=== PATIENT | female | born 1960 | race Caucasian/White ===

== ENCOUNTER 2021-10-06 21:31 | Inpatient (IN) | payer OTHER, SELFPAY ==
[2021-10-06 21:49] VITALS: BP 142/76; PULSE 82; O2SAT 98; BMI 21.4
--- NOTE | 2021-10-06 21:57 | ECG_ITS ---
Test Reason : med clearance Blood Pressure : / mmHG Vent. Rate : 078 BPM Atrial Rate : 078 BPM P-R Int : 142 ms QRS Dur : 084 ms QT Int : 402 ms P-R-T Axes : 069 080 066 degrees QTc Int : 458 ms Normal sinus rhythm Normal ECG No previous ECGs available Referred By: Lalitha Aleman Electronically Signed By:WILIAN NAM MD
[2021-10-06 22:19] LABS: Appearance Urine CLEAR; Color Urine STRAW; Glucose Urine UA >=1000 MG/DL (NEG); Leukocyte Esterase Urine NEG (NEG); Nitrite Urine NEG (NEG); PH 6.5 (5.0-8.0); Specific Gravity - Urine <= 1.005 (1.005-1.025); Urine Blood NEG (NEG); Urine Ketones 5 MG/DL (NEG); Urine Protein NEG (NEG-TRACE)
[2021-10-06 22:26] LABS: Mucus Urine TRACE /LPF; RBC Urine 0 /HPF (0); WBC Urine 0 /HPF (0-4)
--- NOTE | 2021-10-06 22:30 | ED_ITS ---
HPI - General Adult General Chief complaint: General Medical Stated complaint: hyperglycemic Time Seen by Provider: 10/06/21 21:56 Source: patient Mode of arrival: EMS History of Present Illness HPI narrative: This is a 61-year-old female, chronic user of meth, who is brought in via EMS after she was pulled over by the [employer] department and found to have meth in her vehicle. Patient reports that she has not taken her insulin in ?weeks? because she is recently moved here from [place] and does not have a primary care provider down here in currently lives in a nursing home. She reports she has had some polyuria, polydipsia, mild nausea and mild diarrhea. Patient reports she last used meth this morning. Patient states she has been vaccinated approximately 2 months ago in has received Moderna but not been boosted. Related Data Allergies Allergy/AdvReac Type Severity Reaction Status Date / Time No Known Allergies Allergy Unverified 10/06/21 21:57 Review of Systems Review of Systems: Pertinent positives and negatives as stated in HPI 10 point review of systems is otherwise negative. PMFSH Past Medical History Source: nursing notes reviewed Social History Social History Alcohol intake: current Alcohol intake frequency: holidays/special occasions only Patient Tobacco Use Status: Current everyday Tobacco user Use of substances other than those prescribed or required for medical reasons: Yes Substance Use Type: Amphetamines Advance Directives: No Physical Exam Vital Signs: Vital Signs: Last Vital Signs Temp 98.5 F 10/07/21 02:16 Pulse 83 10/07/21 02:16 Resp 20 10/07/21 02:16 BP 122/79 10/07/21 02:16 Pulse Ox 100 10/07/21 02:16 BMI result Body Mass Index 21.4 VITAL SIGNS: Reviewed. GENERAL: Well developed, well nourished, in no acute distress. HEAD: Normocephalic/atraumatic EYES: PERRLA, EOMI OROPHARYNX: no oral lesions noted, posterior pharynx clear , dry mucosa NECK: Supple, no adenopathy LUNGS: Normal breath sounds. No adventitious sounds or accessory muscle use. CARDIOVASCULAR: Regular rate and rhythm without noted murmurs ABDOMEN: Soft, non-tender, non-distended with bowel sounds. NEUROLOGIC: Alert and oriented x 4. Course Course Course Narrative: 61-year-old female with history and clinical presentation consistent with hyperglycemia, will rule out infectious etiologies opposed to poor medication compliance and also ensure patient is not in DKA. Review of all investigations demonstrates significant dehydration, acetone was positive but bicarb was noted to be within normal limits, patient was treated with a total of 5 L of IV fluids and 14 units of insulin. Patient is hemodynamically stable and will otherwise be admitted. This case was discussed with the inpatient hospitalist who accepts admission. Medical Decision Making Lab Data Result diagrams: 10/06/21 22:36 10/07/21 02:40 Labs: Lab Results 10/06/21 10/06/21 10/06/21 Range/Units 22:12 22:12 22:36 WBC 7.1 (4.8-10.8) X10*3/uL RBC 4.25 (4.20-5.50) X10*6/uL Hgb 13.3 (12.0-16.0) g/dl Hct 37.2 (37.0-47.0) % MCV 87.5 (80.0-98.0) fL MCH 31.3 (27.0-33.0) pg MCHC 35.8 H (31.0-35.0) g/dl RDW 12.0 (11.0-16.0) % Plt Count 158 L (160-400) X10*3/uL MPV 9.3 L (9.4-12.3) fL Immature Gran % (Auto) 0.4 (0.0-0.4) % Neut % (Auto) 70.1 (45-73) % Lymph % (Auto) 18.7 L (20-40) % Nolan % (Auto) 9.7 (2-11) % Eos % (Auto) 1.1 (0-4) % Baso % (Auto) 0.0 (0-2) % Lymph # (Auto) 1.3 (1.2-4.9) X10*3/uL [place] # (Auto) 0.7 (0.1-1.2) X10*3/uL Eos # (Auto) 0.1 (0.0-0.4) X10*3/uL Baso # (Auto) 0.0 (0.0-0.2) X10*3/uL Abs Immat Gran (auto) 0.03 (0.00-0.03) X10*3/uL Absolute Neuts (auto) 5.0 (2.0-8.3) x10*3/uL Absolute Nucleated RBC 0.000 (0.0-0.012) X10*3/uL Nucleated RBC % (auto) 0.0 (0.0-0.2) /100WBC Sodium (135-145) mmol/L Potassium (3.3-5.1) mmol/L Chloride (96-108) mmol/L Carbon Dioxide (22-29) mmol/L Anion Gap (12-20) BUN (9-16) mg/dL Creatinine (0.5-1.4) mg/dL Estim Creat Clear Calc Estimated GFR POC Glucose (60-115) mg/dL Random Glucose (60-115) mg/dL Lactic Acid (0.5-2.0) mmol/L Calcium (8.4-10.2) mg/dL Total Bilirubin (0.0-1.0) mg/dL AST (5-31) U/L ALT (0-31) U/L Alkaline Phosphatase (39-117) U/L Total Protein (6.5-8.0) g/dL Albumin (3.5-5.0) g/dL Lipase (8-78) U/L Urine Color STRAW Urine Appearance CLEAR Urine pH 6.5 (5.0-8.0) Ur Specific [place] <= 1.005 (1.005-1.025) Urine Protein NEG (NEG-TRACE) MG/DL Urine Glucose (UA) >=1000 H (NEG) MG/DL Urine Ketones 5 (NEG) MG/DL Urine Blood NEG (NEG) Urine Nitrite NEG (NEG) Ur Leukocyte Esterase NEG (NEG) Urine RBC 0 (0) /HPF Urine WBC 0 (0-4) /HPF Ur Squamous Epith Cells NONE /LPF Urine Bacteria NONE /LPF Urine Mucus TRACE /LPF Acetone, Qual (Negative) COVID-19 (MAXIMILIAN) Negative (Negative) COVID-19 Clin Com See Note 10/06/21 10/06/21 10/07/21 Range/Units 22:36 22:36 01:39 WBC (4.8-10.8) X10*3/uL RBC (4.20-5.50) X10*6/uL Hgb (12.0-16.0) g/dl Hct (37.0-47.0) % MCV (80.0-98.0) fL MCH (27.0-33.0) pg MCHC (31.0-35.0) g/dl RDW (11.0-16.0) % Plt Count (160-400) X10*3/uL MPV (9.4-12.3) fL Immature Gran % (Auto) (0.0-0.4) % Neut % (Auto) (45-73) % Lymph % (Auto) (20-40) % Nolan % (Auto) (2-11) % Eos % (Auto) (0-4) % Baso % (Auto) (0-2) % Lymph # (Auto) (1.2-4.9) X10*3/uL [place] # (Auto) (0.1-1.2) X10*3/uL Eos # (Auto) (0.0-0.4) X10*3/uL Baso # (Auto) (0.0-0.2) X10*3/uL Abs Immat Gran (auto) (0.00-0.03) X10*3/uL Absolute Neuts (auto) (2.0-8.3) x10*3/uL Absolute Nucleated RBC (0.0-0.012) X10*3/uL Nucleated RBC % (auto) (0.0-0.2) /100WBC Sodium 127 L (135-145) mmol/L Potassium 5.0 (3.3-5.1) mmol/L Chloride 86 L (96-108) mmol/L Carbon Dioxide 30 H (22-29) mmol/L Anion Gap 16 (12-20) BUN 19 H (9-16) mg/dL Creatinine 1.52 H (0.5-1.4) mg/dL Estim Creat Clear Calc 41.3 Estimated GFR 35 POC Glucose > 600 H* (60-115) mg/dL Random Glucose 1030 H* (60-115) mg/dL Lactic Acid 1.8 (0.5-2.0) mmol/L Calcium 9.7 (8.4-10.2) mg/dL Total Bilirubin 0.7 (0.0-1.0) mg/dL AST 45 H (5-31) U/L ALT 80 H (0-31) U/L Alkaline Phosphatase 136 H (39-117) U/L Total Protein 7.8 (6.5-8.0) g/dL Albumin 3.9 (3.5-5.0) g/dL Lipase 32 (8-78) U/L Urine Color Urine Appearance Urine pH (5.0-8.0) Ur Specific [place] (1.005-1.025) Urine Protein (NEG-TRACE) MG/DL Urine Glucose (UA) (NEG) MG/DL Urine Ketones (NEG) MG/DL Urine Blood (NEG) Urine Nitrite (NEG) Ur Leukocyte Esterase (NEG) Urine RBC (0) /HPF Urine WBC (0-4) /HPF Ur Squamous Epith Cells /LPF Urine Bacteria /LPF Urine Mucus /LPF Acetone, Qual Moderate H (Negative) COVID-19 (MAXIMILIAN) (Negative) COVID-19 Clin Com 10/07/21 Range/Units 02:40 WBC (4.8-10.8) X10*3/uL RBC (4.20-5.50) X10*6/uL Hgb (12.0-16.0) g/dl Hct (37.0-47.0) % MCV (80.0-98.0) fL MCH (27.0-33.0) pg MCHC (31.0-35.0) g/dl RDW (11.0-16.0) % Plt Count (160-400) X10*3/uL MPV (9.4-12.3) fL Immature Gran % (Auto) (0.0-0.4) % Neut % (Auto) (45-73) % Lymph % (Auto) (20-40) % Nolan % (Auto) (2-11) % Eos % (Auto) (0-4) % Baso % (Auto) (0-2) % Lymph # (Auto) (1.2-4.9) X10*3/uL [place] # (Auto) (0.1-1.2) X10*3/uL Eos # (Auto) (0.0-0.4) X10*3/uL Baso # (Auto) (0.0-0.2) X10*3/uL Abs Immat Gran (auto) (0.00-0.03) X10*3/uL Absolute Neuts (auto) (2.0-8.3) x10*3/uL Absolute Nucleated RBC (0.0-0.012) X10*3/uL Nucleated RBC % (auto) (0.0-0.2) /100WBC Sodium 129 L (135-145) mmol/L Potassium 4.4 (3.3-5.1) mmol/L Chloride 97 (96-108) mmol/L Carbon Dioxide 25 (22-29) mmol/L Anion Gap 11 L (12-20) BUN 18 H (9-16) mg/dL Creatinine 1.12 (0.5-1.4) mg/dL Estim Creat Clear Calc 56.1 Estimated GFR 50 POC Glucose (60-115) mg/dL Random Glucose 701 H* D (60-115) mg/dL Lactic Acid (0.5-2.0) mmol/L Calcium 8.2 L D (8.4-10.2) mg/dL Total Bilirubin (0.0-1.0) mg/dL AST (5-31) U/L ALT (0-31) U/L Alkaline Phosphatase (39-117) U/L Total Protein (6.5-8.0) g/dL Albumin (3.5-5.0) g/dL Lipase (8-78) U/L Urine Color Urine Appearance Urine pH (5.0-8.0) Ur Specific [place] (1.005-1.025) Urine Protein (NEG-TRACE) MG/DL Urine Glucose (UA) (NEG) MG/DL Urine Ketones (NEG) MG/DL Urine Blood (NEG) Urine Nitrite (NEG) Ur Leukocyte Esterase (NEG) Urine RBC (0) /HPF Urine WBC (0-4) /HPF Ur Squamous Epith Cells /LPF Urine Bacteria /LPF Urine Mucus /LPF Acetone, Qual (Negative) COVID-19 (MAXIMILIAN) (Negative) COVID-19 Clin Com Critical Care Time Critical Care Time Critical Care Time: Yes Total Critical Care Time: 30 Attestation: I personally attest to this time spent taking care of the patient. Discharge Plan Discharge Clinical Impression: Hyperglycemia, Dehydration Patient Disposition: Admitted As Inpatient
[2021-10-06 22:35] LABS: COVID-19 Test Negative (Negative)
[2021-10-06] MEDS: 0.9 % Sodium Chloride 1,000 ML 999 ML IV (22:38)
[2021-10-06 22:42] LABS: MANUAL DIFF FLAG NO
[2021-10-06 22:43] LABS: Eosinophils Absolute Auto 0.1 X10*3/uL (0.0-0.4); Eosinophils Percent Auto 1.1 % (0-4); Hematocrit 37.2 % (37.0-47.0); Hemoglobin 13.3 g/dl (12.0-16.0); Imm Gran Abs Auto 0.03 X10*3/uL (0.00-0.03); Imm Gran Pct Auto 0.4 % (0.0-0.4); Lymphocytes Absolute Auto 1.3 X10*3/uL (1.2-4.9); Lymphocytes Percent Auto 18.7 % (20-40); Mean Corpuscular HGB Conc 35.8 g/dl (31.0-35.0); Mean Corpuscular Hemoglobin 31.3 pg (27.0-33.0); Mean Corpuscular Volume 87.5 fL (80.0-98.0); Mean Platelet Volume 9.3 fL (9.4-12.3); Monocytes Absolute Auto 0.7 X10*3/uL (0.1-1.2); Monocytes Percent Auto 9.7 % (2-11); Neutrophils Percent Auto 70.1 % (45-73); Platelet Count 158 X10*3/uL (160-400); Red Blood Count 4.25 X10*6/uL (4.20-5.50); White Blood Count 7.1 X10*3/uL (4.8-10.8)
[2021-10-06 23:01] VITALS: BP 118/64; PULSE 80; RESP 14
[2021-10-06 23:08] LABS: Alanine Aminotransferase 80 U/L (0-31); Albumin Level 3.9 g/dL (3.5-5.0); Alkaline Phosphatase 136 U/L (39-117); Anion Gap 16 (12-20); Aspartate Amino Transferase 45 U/L (5-31); Bilirubin Total 0.7 mg/dL (0.0-1.0); Blood Urea Nitrogen 19 mg/dL (9-16); Calcium 9.7 mg/dL (8.4-10.2); Carbon Dioxide 30 mmol/L (22-29); Chloride 86 mmol/L (96-108); Creatinine Clr Calc Pharmacy 41.3; Estimated Glomerular Filt Rate 35; Lipase 32 U/L (8-78); Sodium 127 mmol/L (135-145); Total Protein 7.8 g/dL (6.5-8.0)
[2021-10-06 23:11] LABS: Acetone, serum QL Moderate (Negative)
[2021-10-06 23:18] LABS: Glucose Random 1030 mg/dL (60-115)
[2021-10-06 23:20] LABS: Lactic Acid 1.8 mmol/L (0.5-2.0)
[2021-10-06 23:48] VITALS: BP 137/82; PULSE 81; RESP 18; TEMP 36.8; O2SAT 97
[2021-10-07] MEDS: 0.9 % Sodium Chloride 3,000 ML 999 ML IV (00:16)
[2021-10-07] MEDS: Insulin Regular, Human 100 UNIT/ML 3 ML VIAL 7 UNIT IVPUSH (00:36)
[2021-10-07 01:42] LABS: Glucose, Whole Blood > 600 mg/dL (60-115)
[2021-10-07 02:16] VITALS: BP 122/79; PULSE 83; RESP 20; TEMP 36.9; O2SAT 100
[2021-10-07 03:02] LABS: Anion Gap 11 (12-20); Blood Urea Nitrogen 18 mg/dL (9-16); Calcium 8.2 mg/dL (8.4-10.2); Carbon Dioxide 25 mmol/L (22-29); Chloride 97 mmol/L (96-108); Creatinine Clr Calc Pharmacy 56.1; Estimated Glomerular Filt Rate 50; Potassium 4.4 mmol/L (3.3-5.1); Sodium 129 mmol/L (135-145)
[2021-10-07 03:04] LABS: Glucose Random 701 mg/dL (60-115)
[2021-10-07] MEDS: Insulin Lispro 100 UNIT/ML 3 ML VIAL 7 UNIT SUBCUT (03:29)
[2021-10-07] MEDS: 0.9 % Sodium Chloride 2,000 ML 999 ML IV (03:31)
[2021-10-07 05:07] VITALS: BP 142/68; PULSE 74; RESP 12; O2SAT 97
--- NOTE | 2021-10-07 05:22 | P.HPHOSP_ITS ---
History of Present Illness Date of Service: 10/07/21 Chief Complaint: Increased thirst 61-year-old female with a past medical history of depression, bipolar, substance abuse, diabetes-noncompliant with insulin; presented to the hospital today with a chief complaint of increased thirst; generalized weakness; Patient is a poor historian; reports that she is homeless Patient denies any fever chills cough. Denies any chest pain or palpitations. Reports overall she is not feeling well and generally weak. Denies any falls or trauma. Patient reports he has increased thirst and increased urination. Patient also mentions that she has not been taking her insulin and metformin for about 3-4 weeks. Denies any numbness tingling or focal weakness. Review of all other systems is negative except mentioned above ER course: For ER team patient on exam noted to be dehydrated. Lab showed elevated creatin ine to 1.5, random glucose of 1030, sodium of 127. Patient was given 3 L of IV fluids. Regular insulin IV push. Admitted to the hospital for further management. Patient's anion gap was 16. Not concernedfor DKA. [facility] Pertinent family history: Reports that Parents Social History Household Members: None Housing: Other Do you presently have visiting nurse or other home services: No Alcohol intake: current Alcohol intake frequency: holidays/special occasions only Patient Tobacco Use Status: Current everyday Tobacco user Tobacco use type: Smokeless Tobacco Substance Use Type: Methamphetamine Narrative: Mentions she is homeless Meds Allergies Allergy/AdvReac Type Severity Reaction Status Date / Time No Known Allergies Allergy Verified 10/08/21 13:54 Active Medications: Current Medications Sodium Chloride (Ns) 2,000 mls @ 999 mls/hr IV .Q2H1M [facility] Stop: 10/07/21 05:30 Last Admin: 10/07/21 03:31 Dose: 999 mls/hr Documented by: Melatonin (Melatonin 3 Mg Tablet) 6 mg PO BEDTIME PRN PRN Reason: Insomnia Senna (Sennosides 8.6 Mg Tablet) 17.2 mg PO BEDTIME PRN PRN Reason: Constipation Sodium Chloride (0.9 % Sodium Chloride Flush 3 Ml Syringe) 3 ml IVFLUSH QSHIFT [facility] Home Medications Medication Instructions Recorded Confirmed Last Taken Type aripiprazole 30 mg tablet 30 mg PO BID 10/07/21 10/07/21 Unknown History Physical Exam Vital Signs and Narrative: Vital Signs: Last Vital Signs Temp 98.5 F 10/07/21 02:16 Pulse 74 10/07/21 05:07 Resp 12 10/07/21 05:07 BP 142/68 H 10/07/21 05:07 Pulse Ox 97 10/07/21 05:07 BMI result Body Mass Index 21.4 Gen: Appears be in no acute distress HEENT: NCAT, Moist mucosa. Pulmonary: Vesicular breath sounds, fair air entry CVS: Normal S1-S2 Abdomen: BS+, Soft, Nontender Extremities: Warm well perfused Neuro: Alert and awake. Results Labs CBC and Chem 7: 10/08/21 05:06 10/09/21 05:45 Labs: Laboratory Results - last 24 hr 10/06/21 10/06/21 10/06/21 22:12 22:12 22:36 MCV 87.5 MCH 31.3 MCHC 35.8 H RDW 12.0 Plt Count 158 L MPV 9.3 L Immature Gran % (Auto) 0.4 Neut % (Auto) 70.1 Lymph % (Auto) 18.7 L [place] % (Auto) 9.7 Eos % (Auto) 1.1 Baso % (Auto) 0.0 Lymph # (Auto) 1.3 [place] # (Auto) 0.7 Eos # (Auto) 0.1 Baso # (Auto) 0.0 Abs Immat Gran (auto) 0.03 Absolute Neuts (auto) 5.0 Absolute Nucleated RBC 0.000 Nucleated RBC % (auto) 0.0 Anion Gap Estim Creat Clear Calc Estimated GFR POC Glucose Random Glucose Lactic Acid Calcium Total Bilirubin AST ALT Alkaline Phosphatase Total Protein Albumin Lipase Urine Color STRAW Urine Appearance CLEAR Urine pH 6.5 Ur Specific [place] <= 1.005 Urine Protein NEG Urine Glucose (UA) >=1000 H Urine Ketones 5 Urine Blood NEG Urine Nitrite NEG Ur Leukocyte Esterase NEG Urine RBC 0 Urine WBC 0 Ur Squamous Epith Cells NONE Urine Bacteria NONE Urine Mucus TRACE Acetone, Qual COVID-19 (MAXIMILIAN) Negative COVID-19 Clin Com See Note 10/06/21 10/06/21 10/07/21 22:36 22:36 01:39 MCV MCH MCHC RDW Plt Count MPV Immature Gran % (Auto) Neut % (Auto) Lymph % (Auto) [place] % (Auto) Eos % (Auto) Baso % (Auto) Lymph # (Auto) [place] # (Auto) Eos # (Auto) Baso # (Auto) Abs Immat Gran (auto) Absolute Neuts (auto) Absolute Nucleated RBC Nucleated RBC % (auto) Anion Gap 16 Estim Creat Clear Calc 41.3 Estimated GFR 35 POC Glucose > 600 H* Random Glucose 1030 H* Lactic Acid 1.8 Calcium 9.7 Total Bilirubin 0.7 AST 45 H ALT 80 H Alkaline Phosphatase 136 H Total Protein 7.8 Albumin 3.9 Lipase 32 Urine Color Urine Appearance Urine pH Ur Specific [place] Urine Protein Urine Glucose (UA) Urine Ketones Urine Blood Urine Nitrite Ur Leukocyte Esterase Urine RBC Urine WBC Ur Squamous Epith Cells Urine Bacteria Urine Mucus Acetone, Qual Moderate H COVID-19 (MAXIMILIAN) COVID-19 [employer] Com 10/07/21 02:40 MCV MCH MCHC RDW Plt Count MPV Immature Gran % (Auto) Neut % (Auto) Lymph % (Auto) [place] % (Auto) Eos % (Auto) Baso % (Auto) Lymph # (Auto) [place] # (Auto) Eos # (Auto) Baso # (Auto) Abs Immat Gran (auto) Absolute Neuts (auto) Absolute Nucleated RBC Nucleated RBC % (auto) Anion Gap 11 L Estim Creat Clear Calc 56.1 Estimated GFR 50 POC Glucose Random Glucose 701 H* D Lactic Acid Calcium 8.2 L D Total Bilirubin AST ALT Alkaline Phosphatase Total Protein Albumin Lipase Urine Color Urine Appearance Urine pH Ur Specific [place] Urine Protein Urine Glucose (UA) Urine Ketones Urine Blood Urine Nitrite Ur Leukocyte Esterase Urine RBC Urine WBC Ur Squamous Epith Cells Urine Bacteria Urine Mucus Acetone, Qual COVID-19 (MAXIMILIAN) COVID-19 Clin [facility] [facility] Assessment and Plan (1) Hyperglycemia: Status: Resolved 61-year-old female with a past medical history of depression, bipolar, substance abuse, diabetes-noncompliant with insulin; presented to the hospital today with a chief complaint of increased thirst; generalized weakness. Noted to have following Hyperglycemia: Patient's initial random glucose was 1030. Patient was noncompliant with her home medications metformin and Lantus. Received regular insulin IV push and IV fluids. Fingerstick glucose improving. Closely monitor fingerstick glucose levels for now. Continue IV fluids. Patient not in DKA. Serum osmolality pending. Diabetes: Will start the patient on Lantus 20 units and insulin sliding scale. Diabetic diet. Pseudo hyponatremia: In the setting of hyperglycemia. Improving. BAKARI: Secondary to dehydration. Resolved with IV fluids. 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 History of bipolar disorder: Patient was on aripiprazole. Has been noncom pliant. History of amphetamine abuse: Consult avoid illicit drug use. DVT prophylaxis: SCD boots Code status: Full code Quality Stroke Does the patient have a stroke diagnosis?: No VTE Prior VTE?: No VTE Risk Level:: Medical - low VTE Device Contraindication: N/A - Device Ordered VTE Drug Contraindication: Treatment Not Indicated
[2021-10-07 05:31] VITALS: BP 102/55; PULSE 85; RESP 16; O2SAT 97
[2021-10-07] MEDS: Insulin Glargine,Hum.rec.anlog 100 UNIT/ML 10 ML VIAL 20 UNIT SUBCUT ×2 (05:40→08:39)
[2021-10-07] MEDS: Insulin Lispro 100 UNIT/ML 3 ML VIAL SUBCUT ×5 (05:42→21:11)
[2021-10-07 05:44] LABS: Osmolality, Serum 314 mosm/kg (281-305)
[2021-10-07 05:46] LABS: Glucose, Whole Blood 568 mg/dL (60-115)
[2021-10-07] MEDS: 0.9 % Sodium Chloride 1,000 ML 125 ML IVCONT ×3 (06:23→22:42)
[2021-10-07 07:26] LABS: Glucose, Whole Blood 386 mg/dL (60-115)
[2021-10-07 07:37] LABS: MANUAL DIFF FLAG NO
[2021-10-07 07:41] LABS: Basophils Percent Auto 0.2 % (0-2); Eosinophils Absolute Auto 0.1 X10*3/uL (0.0-0.4); Eosinophils Percent Auto 2.2 % (0-4); Hemoglobin 10.9 g/dl (12.0-16.0); Imm Gran Abs Auto 0.02 X10*3/uL (0.00-0.03); Imm Gran Pct Auto 0.3 % (0.0-0.4); Lymphocytes Absolute Auto 1.7 X10*3/uL (1.2-4.9); Lymphocytes Percent Auto 26.9 % (20-40); Mean Corpuscular HGB Conc 36.3 g/dl (31.0-35.0); Mean Corpuscular Hemoglobin 30.9 pg (27.0-33.0); Mean Platelet Volume 9.2 fL (9.4-12.3); Monocytes Absolute Auto 0.7 X10*3/uL (0.1-1.2); Monocytes Percent Auto 10.4 % (2-11); Neutrophils Absolute Auto 3.9 x10*3/uL (2.0-8.3); Platelet Count 126 X10*3/uL (160-400); Red Blood Count 3.53 X10*6/uL (4.20-5.50); Red Cell Distribution Width 11.8 % (11.0-16.0); White Blood Count 6.4 X10*3/uL (4.8-10.8)
[2021-10-07 08:10] LABS: Anion Gap 10 (12-20); Blood Urea Nitrogen 14 mg/dL (9-16); Calcium 7.7 mg/dL (8.4-10.2); Carbon Dioxide 20 mmol/L (22-29); Chloride 100 mmol/L (96-108); Creatinine Clr Calc Pharmacy 77.6; Estimated Glomerular Filt Rate > 60; Glucose Random 478 mg/dL (60-115); Potassium 3.8 mmol/L (3.3-5.1); Sodium 126 mmol/L (135-145)
[2021-10-07 08:15] VITALS: BP 93/47; PULSE 83; RESP 17; TEMP 36.7; O2SAT 97
--- NOTE | 2021-10-07 08:19 | P.EN_ITS ---
Event Note Date of Service: 10/07/21 Event Note: 61-year-old female with a past medical history of depression, bipo lar, substance abuse, diabetes-noncompliant with insulin; presented to the hospital today with a chief complaint of increased thirst; generalized weakness. Noted to have following Hyperglycemia/HHS. Initial random glucose was 1030.? Patient was noncompliant with her home medications metformin and Lantus due to homelessness Received insulin in the ED continue IV fluids and insulin sliding scale and QID Lantus 20 units daily Pseudohyponatremia secondary to hyperglycemia follow BAKARI Secondary to dehydration.? Resolved with IV fluids. 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 History of bipolar disorder Patient was on aripiprazole.? Has been noncompliant. History of amphetamine abuse Consult addiction medicine avoid illicit drug use. DVT prophylaxis: SCD boots Code status: Full code Attending Dr. Parker
--- NOTE | 2021-10-07 09:40 | PHA.MEDREC ---
Pharmacy Consult ? Medication Reconciliation Pharmacy has completed the medication reconciliation. Spoke with patient in ED and states she is on lantus and abilify. Contacted patients pharmacy in [place], [place].Pt filled lantus 32 units BID on 08/21/21, Abilify 30 mg BID on 08/21/21 and metformin 1000 mg bid in february 2021. Pt states she has not taken Lantus in 5 months.
[2021-10-07 13:53] LABS: Glucose, Whole Blood 381 mg/dL (60-115)
--- NOTE | 2021-10-07 15:27 | MHC.RECOVSUP ---
Recovery Support note: Patient is a 61 year old Chinese speaking female who presented to [facility] due to high blood sugar and was medically admitted. This magazine writer met with patient to discuss amphetamine use and recovery supports. Patient reports that she has been using methamphetamine daily for the past five years. Patient states that she relocated to [place] recently. Patient reports maybe when asked if she is interested in reducing her consumption or stopping entirely. Patient reports she is anxious at this time and unable to discuss this further. This magazine writer will follow up with patient later on in her stay to discuss recovery supports for amphetamine use.
[2021-10-07 15:29] VITALS: BP 121/77; PULSE 80; RESP 18; TEMP 37.1; O2SAT 98
[2021-10-07 15:33] LABS: Glucose, Whole Blood 297 mg/dL (60-115)
--- NOTE | 2021-10-07 16:30 | MHC.CM.PN ---
Met with patient. She reports she lives at [facility]eless snf in [place] and will return there on dc. Her car was towed, she has document with tow information, and she requested assistance how to get it back. Call to [place] [employer]. Car was towed due to not being registered. Patient will need to get car registered or have it towed somewhere else. Informed patient. She will follow up after dc. She will need help with transportation back to snf on dc. She does not have a PCP.
[2021-10-07 16:48] LABS: Glucose, Whole Blood 223 mg/dL (60-115)
--- NOTE | 2021-10-07 19:41 | PC.NURSE ---
Assumed care of pt at 1900. Pt sleeping and in NAD, equal and non-labored resps noted
[2021-10-07 20:32] LABS: Glucose, Whole Blood 125 mg/dL (60-115)
[2021-10-07] MEDS: Melatonin 3 MG TABLET 6 MG PO (21:12)
[2021-10-07 23:26] VITALS: RESP 16
--- NOTE | 2021-10-08 02:14 | PC.NURSE ---
Report called to inpt RN, pt to floor via wc. Sent in stable condition w/ all belongings
[2021-10-08 02:24] VITALS: BP 110/53; PULSE 65; RESP 16; TEMP 36.6; O2SAT 96
[2021-10-08 05:47] LABS: Hematocrit 32.4 % (37.0-47.0); Hemoglobin 11.6 g/dl (12.0-16.0); Mean Corpuscular HGB Conc 35.8 g/dl (31.0-35.0); Mean Corpuscular Hemoglobin 31.4 pg (27.0-33.0); Mean Corpuscular Volume 87.8 fL (80.0-98.0); Mean Platelet Volume 9.1 fL (9.4-12.3); Platelet Count 141 X10*3/uL (160-400); Red Blood Count 3.69 X10*6/uL (4.20-5.50); Red Cell Distribution Width 12.2 % (11.0-16.0); White Blood Count 7.1 X10*3/uL (4.8-10.8)
[2021-10-08 06:19] LABS: Anion Gap 10 (12-20); Blood Urea Nitrogen 9 mg/dL (9-16); Carbon Dioxide 21 mmol/L (22-29); Chloride 109 mmol/L (96-108); Creatinine Clr Calc Pharmacy 82.7; Estimated Glomerular Filt Rate > 60; Glucose Random 268 mg/dL (60-115); Potassium 3.2 mmol/L (3.3-5.1); Sodium 137 mmol/L (135-145)
[2021-10-08 07:53] LABS: Glucose, Whole Blood 275 mg/dL (60-115)
[2021-10-08 08:00] VITALS: BP 134/71; PULSE 83; RESP 18; TEMP 36; O2SAT 96
[2021-10-08] MEDS: Insulin Lispro 100 UNIT/ML 3 ML VIAL SUBCUT ×8 (09:03→20:51)
[2021-10-08] MEDS: Potassium Chloride ER 20 MEQ TAB.ER.PRT 40 MEQ PO (09:04)
--- NOTE | 2021-10-08 10:17 | P.PNIM_ITS ---
Subjective Subjective Date of Service: 10/08/21 Review of Systems Follow up hyperglycemia Feeling better good appetite no pain Physical Exam Verdana 4l Vital Signs: Verdana 4d Verdana 4d Vital Signs: Verdana 4d Verdana 4Bd Last Vital Signs Verdana 4d Lawanda Herrera 4d Lawanda Herrera 4d Temp 96.8 F 10/08/21 08:00 Lawanda Herrera 4d Pulse 83 10/08/21 08:00 Lawanda Brooke 4d Resp 18 10/08/21 08:00 BP 134/71 10/08/21 08:00 Pulse Ox 96 10/08/21 08:00 BMI result Body Mass Index 21.4 Appearing in no acute distress lung sounds are clear to auscultation heart regular rate rhythm, clear S1, S2 positive bowel sounds, abdomen is soft, nontender neuro patient is alert x3, no focal deficits Objective Data Active Medications Dextrose (Dextrose 50 % 25 Gm/50 Ml Vial) 25 gm IVPUSH Q15M PRN; Protocol PRN Reason: per Hypoglycemia Standing Ord. Diphenhydramine HCl (Diphenhydramine Hcl 25 Mg Tablet) 25 mg PO Q6H PRN PRN Reason: withdrawl symptoms Glucose (Glucose Gel 15 Gm Gel..Gram.) 15 gm PO Q15M PRN; Protocol PRN Reason: per Hypoglycemia Standing Ord. Insulin Human Lispro (Insulin Lispro 100 Unit/Ml 3 Ml Vial) 0 unit SUBCUT Q [facility]; Protocol Last Admin: 10/08/21 09:03 Dose: 8 unit Documented by: JULIO Insulin Human Lispro (Insulin Lispro 100 Unit/Ml 3 Ml Vial) [facility] Last Admin: 10/08/21 09:03 Dose: 5 unit Documented by: JULIO Melatonin (Melatonin 3 Mg Tablet) 6 mg PO BEDTIME PRN PRN Reason: Insomnia Last Admin: 10/07/21 21:12 Dose: 6 mg Documented by: LISSY Senna (Sennosides 8.6 Mg Tablet) 17.2 mg PO BEDTIME PRN PRN Reason: Constipation Sodium Chloride (0.9 % Sodium Chloride Flush 3 Ml Syringe) 3 ml IVFLUSH [facility] Last Admin: 10/08/21 07:22 Dose: Not Given Documented by: JULIO Non-Admin Reason: IV Running Labs CBC & Chem 7: 01/09/22 05:06 10/08/21 05:06 Labs: Laboratory Results - last 24 hr 10/07/21 10/07/21 10/07/21 13:49 15:29 16:41 MCV MCH MCHC RDW Plt Count MPV Absolute Nucleated RBC Nucleated RBC % (auto) Anion Gap Estim Creat Clear Calc Estimated GFR POC Glucose 381 H* 297 H 223 H Random Glucose Calcium 10/07/21 10/08/21 10/08/21 20:19 05:06 05:06 MCV 87.8 MCH 31.4 MCHC 35.8 H RDW 12.2 Plt Count 141 L MPV 9.1 L Absolute Nucleated RBC 0.000 Nucleated RBC % (auto) 0.0 Anion Gap 10 L Estim Creat Clear Calc 82.7 Estimated GFR > 60 POC Glucose 125 H Random Glucose 268 H Calcium 8.0 L 10/08/21 07:25 MCV MCH MCHC RDW Plt Count MPV Absolute Nucleated RBC Nucleated RBC % (auto) Anion Gap Estim Creat Clear Calc Estimated GFR POC Glucose 275 H Random Glucose Calcium Microbiology Microbiology Results: Microbiology 10/07/21 00:11 Blood Culture - Preliminary Blood - Venous No growth after 24 hours. 10/07/21 00:11 Blood Culture - Preliminary Blood - Venous No growth after 24 hours. Assessment and Plan (1) Hyperglycemia: Status: Acute Assessment and Plan: 61-year-old female with a past medical history of depression, bipolar, substance abuse, diabetes-noncompliant with insulin; presented to the hospital today with a chief complaint of increased thirst; generalized weakness. Noted to have following Hyperglycemia/HHS. Initial random glucose was 1030.?Resolved Patient was noncompliant with her home medications metformin and Lantus due to homelessness Received insulin in the EDIV fluids stopped continue insulin sliding scale and QID Lantus 20 units daily Hypokalemia Repleted follow BMP Pseudohyponatremia secondary to hyperglycemia follow BAKARI Secondary to dehydration.? Resolved with IV fluids. 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 History of bipolar disorder Patient was on aripiprazole.? Has been noncompliant. History of amphetamine abuse Consult addiction medicine avoid illicit drug use. DISPO Home tommorrow if medically stable DVT prophylaxis: SCD boots Code status: Full code Attending Dr. Parker Quality Stroke Does the patient have a stroke diagnosis?: No VTE Prior VTE?: No VTE Risk Level:: Medical - low VTE Device Contraindication: N/A - Device Ordered VTE Drug Contraindication: Treatment Not Indicated
[2021-10-08 11:42] LABS: Glucose, Whole Blood 266 mg/dL (60-115)
[2021-10-08 12:00] VITALS: BP 119/68; PULSE 100; RESP 18; TEMP 36.1; O2SAT 97
--- NOTE | 2021-10-08 15:03 | PM.EVENT ---
Event Note Date of Service: 10/08/21 Event Note: Addiction consult Please see Recovery Team note(s)
[2021-10-08] MEDS: Nicotine Polacrilex 2 MG GUM BUCCAL (15:28)
[2021-10-08] MEDS: diphenhydrAMINE HCL 25 MG TABLET PO (15:28)
[2021-10-08] MEDS: LORazepam 0.5 MG TABLET 0.25 MG PO ×2 (15:41→20:50)
[2021-10-08 16:00] VITALS: BP 119/74; PULSE 100; RESP 20; TEMP 35.6; O2SAT 98
[2021-10-08 16:17] LABS: Glucose, Whole Blood 217 mg/dL (60-115)
--- NOTE | 2021-10-08 16:18 | MHC.RECOVSUP ---
Recovery Support note: This personal lines underwriter followed up with patient to discuss her methamphetamine use and recovery supports. Patient reports she plans to stop using because she can't get anymore due to her supplier being in [place]. Explained to patient that there is a recovery community of people who get together to support each through meetings. This personal lines underwriter offered to provide patient with information on outpatient resources that can be utilized without insurance. Patient declined, stating that her biggest concern is getting her car out of impound. Patient states I need help, I don't have the money. Patient reports she will be getting an unemployment check at the end of the month. This personal lines underwriter attempted to problem solve the situation with patient when patient became frustrated stating, I need help, your not helping. Recovery Support Team is available to meet with patient to discuss methamphetamine use and supports however at this time patient is not interested in these resources.
[2021-10-08] MEDS: 0.9 % Sodium Chloride Flush 3 ML SYRINGE IVFLUSH (17:10)
[2021-10-08 20:00] VITALS: BP 115/64; PULSE 79; RESP 17; TEMP 36.7; O2SAT 96
[2021-10-08 20:31] LABS: Glucose, Whole Blood 278 mg/dL (60-115)
[2021-10-09] VITALS: BP 104/59; PULSE 69; RESP 18; TEMP 37; O2SAT 96
[2021-10-09 03:34] VITALS: BP 116/61; PULSE 71; RESP 17; TEMP 36.4; O2SAT 97
[2021-10-09 06:39] LABS: Anion Gap 8 (12-20); Blood Urea Nitrogen 11 mg/dL (9-16); Calcium 8.7 mg/dL (8.4-10.2); Carbon Dioxide 24 mmol/L (22-29); Chloride 108 mmol/L (96-108); Creatinine Clr Calc Pharmacy 89.8; Estimated Glomerular Filt Rate > 60; Glucose Random 132 mg/dL (60-115); Potassium 3.1 mmol/L (3.3-5.1); Sodium 137 mmol/L (135-145)
[2021-10-09 07:37] LABS: Glucose, Whole Blood 167 mg/dL (60-115)
--- NOTE | 2021-10-09 07:49 | PM.DS ---
DS: Providers Provider Date of Service: 10/09/21 Date of admission: 10/07/21 04:51 Primary care physician: None Physician Consults: 10/07/21 12:44 Addiction Medicine Routine Consulting Provider: Annelise Rivera Reason for consultation: amphetamine abuse Has provider been notified: No Attending physician on discharge: Mike Norton Discharging clinician: Angie Baires DS: Diagnosis Discharge Diagnosis (1) Hyperglycemia: Status: Acute DS: Summary Hospital Course Hospital Course: HP as per admitting provider 61-year-old female with a past medical history of depression, bipolar, substance abuse, diabetes-noncompliant with insulin; presented to the hospital today with a chief complaint of increased thirst; generalized weakness;Patient is a poor historian; reports that she is homeless Patient denies any fever chills cough.?Denies any chest pain or palpitations.?Reports overall she is not feeling well and generally weak.? Denies any falls or trauma.?Patient reports he has increased thirst and increased urination.?Patient also mentions that she has not been taking her insulin and metformin for about 3-4 weeks.?Denies any numbness tingling or focal weakness.?Review of all other systems is negative except mentioned above ER course: For ER team patient on exam noted to be dehydrated.? Lab showed elevated creatinine to 1.5, random glucose of 1030, sodium of 127.? Patient was given 3 L of IV fluids.? Regular insulin IV push.? Admitted to the hospital for further management.?Patient's anion gap was 16.? Not concernedfor DKA . Hyperglycemia/HHS. Initial random glucose was 1030.?Resolved Patient was noncompliant with her home medications metformin and Lantus due to homelessness Received insulin in the ED, IV fluids stopped continue insulin sliding scale and QID Lantus 20 units daily Medications sent to [facility] Hypokalemia Repleted Pseudohyponatremia secondary to hyperglycemia Resolved BAKARI Secondary to dehydration.? Resolved with IV fluids. Homelessness. Case management met with patient. She came from a group home in [place] the plan is for her to return there. Seen by recovery team for methamphetamine use, provided information regarding outpatient resources however patient declined stating that her car has been impounded Time Spent with Patient Time attestation: Total time spent providing and/or coordinating discharge services: Discharge coordination time: Greater than 30 minutes Quality: Stroke Does the patient have a stroke diagnosis?: No Physical Exam Vital Signs: Vital Signs: Last Vital Signs Temp 97.5 F 10/09/21 03:34 Pulse 71 10/09/21 03:34 Resp 17 10/09/21 03:34 BP 116/61 10/09/21 03:34 Pulse Ox 97 10/09/21 03:34 BMI result Body Mass Index 21.4 Appearing in no acute distress head is normocephalic atraumatic eyes pupils are PERRLA sclera is anicteric mouth throat mucous membranes are intact and moist neck is supple no lymphadenopathy, no JVD noted lung sounds are clear to auscultation heart regular rate rhythm, clear S1, S2 positive bowel sounds, abdomen is soft, nontender neuro patient is alert x3, no focal deficits DS: Data Data Completed and Pending Labs on day of discharge: Laboratory Results - last 24 hr 10/08/21 10/08/21 10/08/21 07:25 11:24 16:08 Sodium Potassium Chloride Carbon Dioxide Anion Gap BUN Creatinine Estim Creat Clear Calc Estimated GFR POC Glucose 275 H 266 H 217 H Random Glucose Calcium 10/08/21 10/09/21 10/09/21 20:09 05:45 07:32 Sodium 137 Potassium 3.1 L Chloride 108 Carbon Dioxide 24 Anion Gap 8 L BUN 11 Creatinine 0.70 Estim Creat Clear Calc 89.8 Estimated GFR > 60 POC Glucose 278 H 167 H Random Glucose 132 H Calcium 8.7 D Preliminary micro results at discharge 10/07/21 00:11 Blood Culture - Preliminary Blood - Venous No growth after 48 hours. 10/07/21 00:11 Blood Culture - Preliminary Blood - Venous No growth after 48 hours. Discharge Plan Discharge Anticipated Discharge Date/Time: 10/09/21 07:47 Patient Disposition: Home, Self-Care Discharge Diagnosis: hyperglycemia Referrals: Physician,None [Primary Care Provider] - 1 Week Discharge Medications: New insulin lispro [Humalog KwikPen Insulin] 100 unit/mL insulin pen See Protocol sliding scale dose subcut USEASDIRECTD Qty: 3 RF: 0 (DME) pen needle, diabetic [Pen Needle] 31 gauge x 1/4 needle See Rx Instructions .Route Qty: 100 RF: 0 alcohol swabs [Alcohol Prep Pads] Pads, Medicated 1 pad topical TID Qty: 200 RF: 0 (DME) insulin syringe-needle U-100 [Insulin Syringe] 0.5 mL 29 gauge x 1/2 syringe See Rx Instructions .Route Qty: 100 RF: 0 Continued aripiprazole 30 mg Tablet 30 mg PO BID RF: 0 Lantus U-100 Insulin 100 unit/mL Solution 38 unit SUBCUT BID Qty: 10 RF: 0 Discharge Orders: Discharge Order (Routine); Ordered 10/09/21 Ordered By: Angie Baires Diet: advance to usual diet Activity on Discharge: As tolerated Stand Alone Forms: Patient Portal Discharge page Care Plan Goals: Take your diabetic medications as prescribed Your diabetic medication has been sent to [facility] Health Concerns: Diabetes with Hyperglycemia Plan of Treatment: Please take your medications as prescribed. Continue to check your blood sugars at least 3 times daily and take your insulin to avoid spikes in your blood sugar. Follow a low sugar diet. Assessment: See discharge summary Discharge Date/Time: 10/09/21 12:36
[2021-10-09 07:53] VITALS: BP 113/56; PULSE 77; RESP 18; TEMP 36.6; O2SAT 96
[2021-10-09] MEDS: Potassium Chloride ER 20 MEQ TAB.ER.PRT 60 MEQ PO (08:34)
[2021-10-09] MEDS: Insulin Lispro 100 UNIT/ML 3 ML VIAL SUBCUT ×4 (08:35→11:38)
[2021-10-09] MEDS: 0.9 % Sodium Chloride Flush 3 ML SYRINGE IVFLUSH (08:36)
--- NOTE | 2021-10-09 09:10 | MHC.CM.PN ---
Addendum entered by Shani Walter RN 10/09/21 09:44: PT REPORTS SHE HAS BEEN STAYING AT THE [facility], CM CONTACTED SENIOR CARE AT 9:40AM [phone] TO VERIFY SHE CAN RETURN, CM AWAITING CALL BACK FROM [facility] [employer] [facility]. Addendum entered by Shani Walter RN 10/09/21 09:20: PT HAS BEEN SEEN BY RECOVERY SUPPORT TEAM AND HAS DECLINED SERVICES. Original Note: EMR REVIEWED, PT CAME FROM [facility]IOR [facility] IN [place] AND PLAN WAS TO RETURN, PT ALSO LISTED NSELF-PAY AND CM MET W/PT TO VERIFY AND PT REPORTED SHE HAS [place] MEDICAID AND MEDICARE, CM CONTACTED REGISTRATION AND THEY WILL LOOKUP INSURANCE, PT DEMANDING SHE NEEDS FINANCIAL ASSISTANCE GETTING HER CAR OUT OF [employer] IT WAS TOWED WELL GETTING IT REGISTERED THAT IS WHY IT WAS TOWED, PT AWARE CM AND [facility] CANNOT ASSIST HER W/PAYING FOR HER TO REGISTER HER CAR OR PAY FOR [employer] FEES, PT C/O SHE NEEDS NEW CLOTHES HERS ARE SOILED, CM DIRECTOR AWARE AND WILL BRING CLOTHES DOWN TO UNIT, CM TO VERIFY WHICH [facility] IN [place] PT WAS STAYING. PLAN IS FOR DISCHARGE TODAY.
[2021-10-09] MEDS: Nicotine Polacrilex 2 MG GUM BUCCAL (10:04)
--- NOTE | 2021-10-09 10:17 | MHC.CM.PN ---
CM RECEIVED CALL BACK FROM [facility] [place] THAT PT IS WELCOME TO RETURN AND MAY SHOW UP ANY TIME TODAY, HOSPITALIST AWARE AND PT WILL BE PROVIDED A CAB VOUCHER INCLUDING A STOP AT PHARMACY TO [facility] [employer] HER MEDS.
[2021-10-09 11:21] LABS: Glucose, Whole Blood 321 mg/dL (60-115)
[2021-10-09 11:50] VITALS: BP 121/67; PULSE 98; RESP 18; TEMP 36.5; O2SAT 98
--- NOTE | 2021-10-09 12:14 | MHC.CM.PN ---
PT DISCHARGING TO [facility] TO [facility] AND THEN [facility] [place], PT GIVEN TAXI VOUCHER FOR [facility] FOR TRANSPORT.
--- NOTE | 2021-10-09 15:37 | MHC.CM.PN ---
CM NOTIFIED PT IS STILL WAITING FOR [facility] IN [facility], [facility] CONFIRMED W/CUSTODIAL AT 3:35PM [phone] THEY CAN ASSIST HER TO GET HER MEDS TOMORROW, [facility] HAS GIVEN PT A NEW TAXI VOUCHER WITH NO STOP AT PHARMACY AND [facility] HER ONLY STOP PHARMACY WILL BE CLOSING SOON.
== END 2021-10-09 12:36 | disposition home or self-care (01) | DRG 638 ==
LOC: HO.ED 10-07 03:25 → HO.EDOVER 10-07 04:55 → HO.S3 10-08 00:28
PROVIDERS: Admitting Provider Hospitalist; Emergency Provider Student in an Organized Health Care Education/Training Program; Visit Provider Nurse Practitioner Acute Care
DX: E11.00 Type 2 diabetes mellitus with hyperosmolarity without nonketotic hyperglycemic-hyperosmolar coma (NKHHC) (principal); N17.9 Acute kidney failure, unspecified; F31.9 Bipolar disorder, unspecified; F15.10 Other stimulant abuse, uncomplicated; Z20.822 Contact with and (suspected) exposure to COVID-19; F17.220 Nicotine dependence, chewing tobacco, uncomplicated; E87.6 Hypokalemia; E86.0 Dehydration; Z71.6 Tobacco abuse counseling; Z59.01 Sheltered homelessness; Z91.14 Patient's other noncompliance with medication regimen; Z79.4 Long term (current) use of insulin
CPT/HCPCS: 36415; 80048; 80053; 81001; 82009; 82947; 83605; 83690; 83930; 85025; 85027; 87040; 87635; 93005; 99285; Q0163

== ENCOUNTER 2022-03-12 17:32 | Emergency (ER) | payer OTHER, SELFPAY ==
--- NOTE | 2022-03-12 17:43 | ED_ITS ---
HPI - Altered Mental Status General Chief Complaint: Overdose Stated Complaint: FOUND UNRESPONSIVE BY BD,87%RA,NO NARCAN GIVEN Time Seen by Provider: 03/12/22 17:43 Source: patient and EMS Mode of arrival: EMS Limitations: no limitations History of Present Illness HPI narrative: patient with History of diabetes, depression, bipolar disorder, heroin abuse was found unresponsive by the EMS saturating 87 at room air responded to Narcan 4 mg given intranasally. POC was >400 no signs of injury patient refusing to stay in the hospital Related Data Home Medications Medication Instructions Recorded Confirmed aripiprazole 30 mg tablet 30 mg PO BID 10/07/21 10/07/21 Previous Rx's Medication Instructions Recorded alcohol swabs (Alcohol Prep Pads) 1 pad topical TID #200 ea 10/09/21 insulin glargine 100 unit/mL 38 unit (0.38 mL) subcut BID #10 mL 10/09/21 subcutaneous solution (Lantus U-100 Insulin) insulin lispro 100 unit/mL See Protocol subcut USEASDIRECTD 10/09/21 subcutaneous pen (Humalog KwikPen #3 mL (U-100) Insulin) insulin syringe-needle U-100 0.5 #100 ea 10/09/21 mL 29 gauge x 1/2 (Insulin Syringe) pen needle, diabetic 31 gauge x #100 ea 10/09/21 1/4 (Pen Needle) Allergies Allergy/AdvReac Type Severity Reaction Status Date / Time No Known Allergies Allergy Verified 10/08/21 13:54 Review of Systems Review of Systems: Yes all other systems are reviewed and are negative [facility] Social History Social History Household Members: None Housing: Other Do you presently have visiting nurse or other home services: No Alcohol intake: current Alcohol intake frequency: holidays/special occasions only Patient Tobacco Use Status: Current everyday Tobacco user Tobacco use type: Smokeless Tobacco Substance Use Type: Methamphetamine Advance Directives: No Advance Directives Information Provided: No Physical Exam ED Vital Signs: Vital Signs - 24 hr 03/12/22 17:48 Temperature 98.3 F Pulse Rate 89 Respiratory Rate 18 Blood Pressure 132/71 Pulse Oximetry 100 Oxygen Delivery Method Room Air BMI result Body Mass Index 26.6 Appearance: Alert. Oriented X3. No acute distress. Eyes: PERRLA, No Nystagmus ENT: Pharynx normal. Oral Mucosa moist Neck: Normal inspection. Neck supple. CVS: Normal heart rate and rhythm. Pulses normal. Respiratory: No respiratory distress. Equal air entry bilateral, no wheezing/rales/rhonchi Abdomen: Soft and nontender. Bowel sounds are present, no mass palpable, no CVA tenderness Skin: Skin warm and dry. Normal skin color. Normal skin turgor. Extremities: No lower extremity edema. No calf tenderness Neuro: Oriented X 3. No motor deficit. No sensory deficit.No cerebellar signs , cranial nerves II-XII intact MDM - Altered Mental Status MDM Narrative Medical decision making narrative: Patient seen by care team patient refusing any help refused to take Narcan take home patient was given 14 units of Humalog insulin patient signed against medical advice Lab Data Labs: Lab Results 03/12/22 Range/Units 17:53 POC Glucose 379 H* (60-115) mg/dL Discharge Plan Discharge Clinical Impression: Drug overdose, Diabetes mellitus Patient Disposition: Left Against Medical Advice Prescriptions: No Action aripiprazole 30 mg Tablet 30 mg PO BID insulin lispro [Humalog KwikPen Insulin] 100 unit/mL insulin pen See Protocol subcut USEASDIRECTD Qty: 3 0RF Protocol: Insulin Correction Scale Less than or equal to 110 ---- Give (units): 0 111 to 150 Give (units): 0 151 to 200 Give (units): 2 201 to 250 Give (units): 4 251 to 300 Give (units): 6 301 to 350 Give (units): 8 Greater than 350 Give (units): 10 Call MD if Blood Glucose > : 350 (DME) pen needle, diabetic [Pen Needle] 31 gauge x 1/4 needle See Rx Instructions .Route Qty: 100 0RF Rx Instructions: As directed alcohol swabs [Alcohol Prep Pads] Pads, Medicated 1 pad topical TID Qty: 200 0RF Lantus U-100 Insulin 100 unit/mL Solution 38 unit SUBCUT BID Qty: 10 0RF (DME) insulin syringe-needle U-100 [Insulin Syringe] 0.5 mL 29 gauge x 1/2 syringe See Rx Instructions .Route Qty: 100 0RF Rx Instructions: As directed Stand Alone Forms: Against Medical Advice Discharge Date/Time: 03/12/22 18:08
[2022-03-12 17:48] VITALS: BP 128/77; BP 132/71; PULSE 110; PULSE 89; RESP 18; TEMP 36.8; O2SAT 100; O2SAT 98; BMI 26.6
--- NOTE | 2022-03-12 17:53 | HO.SUDE ---
SUDE Patient is a 61 year old Guamanian speaking female who presented [place] [facility] [place] after an accidental overdose. This administrative underwriter met with patient to offer her support and substance use treatment services. Patient is declining all interventions at this time. Patient stated I was fine where I was, put me back where I was. Patient does not believe she needed narcan and she is upset that she is here. This administrative underwriter attempted to collect information from patient however patient declined, stating it's my life, you don't have to know. Encouraged patient to inform staff if she changes her mind and would like to discuss her substance use. Patient acknowledged. Patient expressing a desire to leave the hospital and is asking directions for the exit. Discussed case with ED physician.
[2022-03-12 17:56] LABS: Glucose, Whole Blood 379 mg/dL (60-115)
--- NOTE | 2022-03-12 18:05 | PC.NURSE ---
Pt tried leaving and busted through ER doors. Security caught pt trying to leave through the cafeteria. Provider made aware. provider stating pt can leave. ama form signed. bowl topper made aware.
[2022-03-12] MEDS: Insulin Lispro 100 UNIT/ML 3 ML VIAL 14 UNIT SUBCUT (18:54)
== END 2022-03-12 18:08 | disposition left against medical advice (07) ==
PROVIDERS: Emergency Provider Internal Medicine
DX: T50.901A Poisoning by unspecified drugs, medicaments and biological substances, accidental (unintentional), initial encounter (principal); Y92.9 Unspecified place or not applicable; E11.9 Type 2 diabetes mellitus without complications
CPT/HCPCS: 82947; 99281; 99283

== ENCOUNTER 2022-03-12 21:12 | Inpatient (IN) | payer OTHER, SELFPAY ==
--- NOTE | ~2022-03-12 | CT_ITS ---
EXAMINATION: CT CHEST WITHOUT CONTRAST CLINICAL INFORMATION: Multiple overdoses. Evaluate for aspiration pneumonia COMPARISON: Previous chest x-rays most recent from earlier the same day TECHNIQUE: Multidetector volumetric CT imaging of the chest was done. Axial MIP volume rendering provided. Sagittal and coronal reformatted images were obtained. This CT examination was performed using dose optimization techniques as appropriate, variously including the following: *Automated exposure control *Adjustment of mA and/or kV according to patient size (this includes techniques or standardized protocols for targeted exams where dose is matched to indication/reason for exam; i.e. extremities or head) *Use of iterative reconstruction technique DLP: 249 mGy-cm FINDINGS: LUNGS: There is bilateral multilobar groundglass attenuation and airspace disease suggestive of pneumonia. This is greatest in the bilateral lower lobes where there is dense consolidation and air bronchograms. Findings would be consistent with aspiration pneumonia. There is a 1 cm calcified left upper lobe nodule axial image 14 series 3. This may represent a calcified granuloma. MEDIASTINUM: There are small noncalcified mediastinal lymph nodes. There are calcified left knee styloid and hilar lymph nodes suggestive of old granulomatous disease. Heart size is normal. There is no pericardial effusion. The thoracic aorta is normal. The visualized thyroid gland is normal. PLEURA: There is no pleural effusion. No pleural mass or thickening. AXILLA: No lymphadenopathy. UPPER ABDOMEN: The gallbladder is been removed. There are small calcifications in the liver and spleen likely related to old granulomatous disease. OSSEOUS STRUCTURES: There are postsurgical changes to the left shoulder. There are degenerative changes of the spine. CT/CT chest wo con IMPRESSION: Bilateral pneumonitis/pneumonia, greatest in the bilateral lower lobes. Evidence of old granulomatous disease. Fleischner guidelines were followed.
--- NOTE | ~2022-03-12 | XR_ITS ---
EXAMINATION: XR CHEST CLINICAL INFORMATION: Shortness of breath COMPARISON: Previous chest x-ray and chest CT 03/13/2022 TECHNIQUE: Frontal view of the chest was obtained. FINDINGS: The cardiac and mediastinal contours are normal. There is increasing patchy right-sided airspace disease probably representing pneumonia. There is a dense nodule in the left upper lobe probably corresponding to calcified granuloma seen on chest CT. There is no pleural effusion or pneumothorax. There are postsurgical changes to the left shoulder. XR/XR chest 1V IMPRESSION: Worsening right-sided pneumonia.
--- NOTE | ~2022-03-12 | XR_ITS ---
EXAMINATION: XR CHEST CLINICAL INFORMATION: Hypoxia after narrowing. COMPARISON: None TECHNIQUE: Frontal view of the chest was obtained. FINDINGS: No significant abnormality is noted involving the heart, lungs, mediastinum, bony thorax or soft tissues. XR/XR chest 1V IMPRESSION: No acute cardiopulmonary process.
--- NOTE | ~2022-03-12 | XR_ITS ---
EXAMINATION: XR CHEST CLINICAL INFORMATION: Hypoxia COMPARISON: 03/12/2022 TECHNIQUE: Frontal view of the chest was obtained. FINDINGS: Normal symmetric lung volumes. No parenchymal consolidation. No pleural effusion. No pneumothorax. Cardiomediastinal silhouette and pulmonary vascularity are within normal limits. No acute osseous abnormalities. Healing right clavicular diaphyseal fracture. XR/XR chest 1V IMPRESSION: No acute findings
[2022-03-12 21:30] VITALS: BP 149/71; BP 184/100; PULSE 120; PULSE 97; RESP 20; TEMP 36.4; O2SAT 89; O2SAT 90; BMI 26.6
[2022-03-12 21:35] VITALS: BP 135/71; PULSE 88; RESP 20; O2SAT 90
--- NOTE | 2022-03-12 21:35 | ED.OVERDOSE ---
HPI - Overdose General Chief Complaint: Overdose <Miguel Oquendo MD - Last Filed: 03/13/22 06:23> Stated Complaint: overdose <Miguel Oquendo MD - Last Filed: 03/13/22 06:23> Time Seen by Provider: 03/12/22 21:34 <Miguel Oquendo MD - Last Filed: 03/13/22 06:23> Source: patient <Miguel Oquendo MD - Last Filed: 03/13/22 06:23> Mode of arrival: EMS <Miguel Oquendo MD - Last Filed: 03/13/22 06:23> Limitations: no limitations <Miguel Oquendo MD - Last Filed: 03/13/22 06:23> History of Present Illness HPI Narrative: Patient received 12 intranasal of narcan, had to be bagged by EMS, patient requiring oxygen <Miguel Oquendo MD - Last Filed: 03/13/22 06:23> MD complaint: accidental overdose <Miguel Oquendo MD - Last Filed: 03/13/22 06:23> Onset (ago): minute(s) <Miguel Oquendo MD - Last Filed: 03/13/22 06:23> Timing confirmed by: other (EMS) <Miguel Oquendo MD - Last Filed: 03/13/22 06:23> Intent: other (wanted to get high) <Miguel Oquendo MD - Last Filed: 03/13/22 06:23> Context: Accidental Overdose: wanted to get high <Miguel Oquendo MD - Last Filed: 03/13/22 06:23> Related Data Home Medications: Home Medications Medication Instructions Recorded Confirmed insulin glargine 100 unit/mL 30 unit subcut DAILY 03/13/22 03/13/22 subcutaneous solution (Lantus U-100 Insulin) Previous Rx's Medication Instructions Recorded insulin lispro 100 unit/mL See Protocol subcut USEASDIRECTD 10/09/21 subcutaneous pen (Humalog KwikPen #3 mL (U-100) Insulin) insulin syringe-needle U-100 0.5 #100 ea 10/09/21 mL 29 gauge x 1/2 (Insulin Syringe) pen needle, diabetic 31 gauge x #100 ea 10/09/21 1/4 (Pen Needle) <Miguel Oquendo MD - Last Filed: 03/13/22 06:23> Allergies/Adverse Reactions: Allergies Allergy/AdvReac Type Severity Reaction Status Date / Time No Known Allergies Allergy Verified 03/12/22 21:30 <Miguel Oquendo MD - Last Filed: 03/13/22 06:23> Review of Systems Constitutional: Constitutional: Reports no additional constitutional complaints <Miguel Oquendo MD - Last Filed: 03/13/22 06:23> Eyes: Eyes: Reports no additional eye complaints <Miguel Oquendo MD - Last Filed: 03/13/22 06:23> ENT: Denies dizziness <Miguel Oquendo MD - Last Filed: 03/13/22 06:23> Cardiovascular: Cardiovascular: Reports no additional cardiovascular complaints <Miguel Oquendo MD - Last Filed: 03/13/22 06:23> Respiratory: Respiratory: Reports as per HPI <Miguel Oquendo MD - Last Filed: 03/13/22 06:23> Gastrointestinal: Gastrointestinal: Reports no additional gastrointestinal complaints <Miguel Oquendo MD - Last Filed: 03/13/22 06:23> Genitourinary: Genitourinary: Reports no additional female genitourinary complaints <Miguel Oquendo MD - Last Filed: 03/13/22 06:23> Musculoskeletal: Musculoskeletal: Reports no additional musculoskeletal complaints <Miguel Oquedno MD - Last Filed: 03/13/22 06:23> Integumentary/Breasts: Skin/Breast: Denies rash <Miguel Oquendo MD - Last Filed: 03/13/22 06:23> Neurologic: Reports system reviewed and no additional complaints, except as documented, Denies dizziness and Denies Sensory deficit (Neuro) <Miguel Oquendo MD - Last Filed: 03/13/22 06:23> Psychiatric: Psychiatric: Denies anxiety <Miguel Oquendo MD - Last Filed: 03/13/22 06:23> [facility] Past Medical History Attestation statement: The following information was validated with the patient. <Jailyn Garcia DO - Last Filed: 03/13/22 10:32> Medical History: Medical History (Updated 03/13/22 @ 08:54 by Jailyn Garcia DO) Diabetes mellitus <Miguel Oquendo MD - Last Filed: 03/13/22 06:23> Social History Social History: Social History Household Members: None Housing: Other Do you presently have visiting nurse or other home services: No Alcohol intake: current Alcohol intake frequency: holidays/special occasions only Patient Tobacco Use Status: Current everyday Tobacco user Tobacco use type: Smokeless Tobacco Smoked in Last 30 Days: No Use of substances other than those prescribed or required for medical reasons: Yes Substance Use Type: Heroin Advance Directives: No Advance Directives Information Provided: No Patient : No <Miguel Oquendo MD - Last Filed: 03/13/22 06:23> Physical Exam Vital Signs: Vital Signs: Last Vital Signs Temp 98.1 F 03/13/22 09:40 Pulse 83 03/13/22 10:07 Resp 18 03/13/22 10:07 BP 99/48 L 03/13/22 10:07 Pulse Ox 95 03/13/22 10:07 O2 Del Method 03/13/22 10:07 O2 Flow Rate 2 03/13/22 10:07 Oxygen Flow Rate 6 03/12/22 21:30 BMI result Body Mass Index 26.6 <Miguel Oquendo MD - Last Filed: 03/13/22 06:23> Vital Signs: Last Vital Signs Temp 98.1 F 03/13/22 09:40 Pulse 83 03/13/22 10:07 Resp 18 03/13/22 10:07 BP 99/48 L 03/13/22 10:07 Pulse Ox 95 03/13/22 10:07 O2 Del Method 03/13/22 10:07 O2 Flow Rate 2 03/13/22 10:07 Oxygen Flow Rate 6 03/12/22 21:30 BMI result Body Mass Index 26.6 <Jailyn Garcia DO - Last Filed: 03/13/22 10:32> Const: Other: unkept with vomit in hair <Miguel Oquendo MD - Last Filed: 03/13/22 06:23> Nutritional Appearance: average body habitus <Miguel Oquendo MD - Last Filed: 03/13/22 06:23> Orientation/consciousness: oriented to person and patient oriented x3 <Miguel Oquendo MD - Last Filed: 03/13/22 06:23> Limitations: no limitations <Miguel Oquendo MD - Last Filed: 03/13/22 06:23> HEENT: Head: Yes normal to inspection <Miguel Oquendo MD - Last Filed: 03/13/22 06:23> Ears: external ears normal <Miguel Oquendo MD - Last Filed: 03/13/22 06:23> General nose exam: Normal external nose present <Miguel Oquendo MD - Last Filed: 03/13/22 06:23> Mouth: Normal oral and palatal mucosa present and oropharynx normal <Miguel Oquendo MD - Last Filed: 03/13/22 06:23> Throat: Yes posterior oropharynx normal <Miguel Oquendo MD - Last Filed: 03/13/22 06:23> Eyes: General: appearance normal, both eyes and all related structures <Miguel Oquendo MD - Last Filed: 03/13/22 06:23> Neck: Other: supple <Miguel Oquendo MD - Last Filed: 03/13/22 06:23> Neck: Yes normal visual inspection <Miguel Oquendo MD - Last Filed: 03/13/22 06:23> Chest: Chest palpation & inspection: normal inspection of the chest <Miguel Oquendo MD - Last Filed: 03/13/22 06:23> Resp: Auscultation: clear to auscultation bilaterally <Miguel Oquendo MD - Last Filed: 03/13/22 06:23> Cardio: Jugular venous distension: no JVD <Miguel Oquendo MD - Last Filed: 03/13/22 06:23> Rate: regular rate <Miguel Oquendo MD - Last Filed: 03/13/22 06:23> Rhythm: regular rhythm <Miguel Oquendo MD - Last Filed: 03/13/22 06:23> Heart sounds: S1 normal heart sound present and S2 normal heart sound present <Miguel Oquendo MD - Last Filed: 03/13/22 06:23> GI: Inspection: Yes normal to inspection <Miguel Oquendo MD - Last Filed: 03/13/22 06:23> Palpation (GI): Soft to palpation, nontender and No hepatosplenomegaly present <Miguel Oquendo MD - Last Filed: 03/13/22 06:23> Auscultation: normal bowel sounds <Miguel Oquendo MD - Last Filed: 03/13/22 06:23> : General: Yes no CVA tenderness <Miguel Oquendo MD - Last Filed: 03/13/22 06:23> Back/Spine/Pelvis: Back: no CVA tenderness <Miguel Oquendo MD - Last Filed: 03/13/22 06:23> Skin: Other: healing abscess debridment wound in both arms, sutures are in place <Miguel Oqunedo MD - Last Filed: 03/13/22 06:23> Neuro: General: oriented to person and patient oriented x3 <Miguel Oquendo MD - Last Filed: 03/13/22 06:23> Cranial nerves: Yes CN's II-XII intact bilaterally <Miguel Oquendo MD - Last Filed: 03/13/22 06:23> Motor exam (neuro): 5/5 motor strength present throughout <Miguel Oquendo MD - Last Filed: 03/13/22 06:23> Sensory Exam: No Sensory deficit (Neuro) <Miguel Oquendo MD - Last Filed: 03/13/22 06:23> Extrem: General: Yes normal to inspection <Miguel Oquendo MD - Last Filed: 03/13/22 06:23> Psych: Appearance: grossly normal <Miguel Oquendo MD - Last Filed: 03/13/22 06:23> Course Course Course Narrative: received sign out at 7am - at this time temp 100.2, BP low 90s, has L upper arm incision that does not appear infected but she is not taking her antibiotics, her saturations are low - at this time given her presentation will obtain cultures, lactic acid, empiric ceftriaxone 2G and vancomycin for possible aspiration/bacteremia. She denies hx of endocarditis to me. CT chest ordered - lung sounds very coarse and diminished in bases given recurrent overdose suspect some form of respiratory pathology 30cc/kg bolus ordered 2500cc infection suspected 7am - empiric ceftriaxone 2G and vancomycin ordered. bilateral pneumonia - added on flagyl plan to admit once rescuscitated unsure if BP is accurate given both arms are swollen from recent I/D and drainage at [facility] - she states her BP had been taken at [facility] on her legs due to arm infections 91/36 in [place]. records from [facility] pending focused exam for sepsis performed 1030am <Jailyn Garcia DO - Last Filed: 03/13/22 10:32> Reevaluation(s) Reevaluation #1: weaning off of oxygen and repeating a chest xray <Miguel Oquendo MD - Last Filed: 03/13/22 06:23> Time: 05:44 <Miguel Oquendo MD - Last Filed: 03/13/22 06:23> Procedures EJ/Peripheral Line Neck R: Time Out Performed: Yes <Jailyn Garcia DO - Last Filed: 03/13/22 10:32> Skin Cleansed in Sterile Fashion: Yes <Jailyn Garcia DO - Last Filed: 03/13/22 10:32> Size (gauge): 18 <Jailyn Garcia DO - Last Filed: 03/13/22 10:32> IV Secured and Dressing Applied: Yes <Jailyn Garcia DO - Last Filed: 03/13/22 10:32> Patient Tolerated Procedure: well and no complications <Jailyn Garcia DO - Last Filed: 03/13/22 10:32> MDM - Overdose Lab Data Result diagrams: : 03/12/22 22:27 03/12/22 22:27 <Miguel Oquendo MD - Last Filed: 03/13/22 06:23> Labs: Lab Results 03/12/22 03/12/22 03/12/22 Range/Units 22:27 22:27 22:27 WBC 9.9 (4.8-10.8) X10*3/uL RBC 3.19 L (4.20-5.50) X10*6/uL Hgb 9.6 L (12.0-16.0) g/dl Hct 27.7 L (37.0-47.0) % MCV 86.8 (80.0-98.0) fL MCH 30.1 (27.0-33.0) pg MCHC 34.7 (31.0-35.0) g/dl RDW 13.8 (11.0-16.0) % Plt Count 242 D (160-400) X10*3/uL MPV 8.3 L (9.4-12.3) fL Immature Gran % (Auto) 1.1 H (0.0-0.4) % Neut % (Auto) 80.3 H (45-73) % Lymph % (Auto) 11.6 L (20-40) % [place] % (Auto) 6.4 (2-11) % Eos % (Auto) 0.5 (0-4) % Baso % (Auto) 0.1 (0-2) % Lymph # (Auto) 1.2 (1.2-4.9) X10*3/uL [place] # (Auto) 0.6 (0.1-1.2) X10*3/uL Eos # (Auto) 0.1 (0.0-0.4) X10*3/uL Baso # (Auto) 0.0 (0.0-0.2) X10*3/uL Abs Immat Gran (auto) 0.11 H (0.00-0.03) X10*3/uL Absolute Neuts (auto) 8.0 (2.0-8.3) x10*3/uL Absolute Nucleated RBC 0.000 (0.0-0.012) X10*3/uL Nucleated RBC % (auto) 0.0 (0.0-0.2) /100WBC Sodium 131 L (135-145) mmol/L Potassium 3.0 L (3.3-5.1) mmol/L Chloride 97 (96-108) mmol/L Carbon Dioxide 19 L (22-29) mmol/L Anion Gap 18 (12-20) BUN 19 H D (9-16) mg/dL Creatinine 0.82 (0.5-1.4) mg/dL Estim Creat Clear Calc 81.7 Estimated GFR > 60 POC Glucose (60-115) mg/dL Random Glucose 250 H (60-115) mg/dL Lactic Acid (0.5-2.0) mmol/L Lactic Acid F/U @ 2Hr (0.5-2.0) mmol/L Calcium 8.4 (8.4-10.2) mg/dL Total Bilirubin 0.2 (0.0-1.0) mg/dL Direct Bilirubin < 0.2 (0.0-0.5) mg/dL AST 104 H (5-31) U/L ALT 76 H (0-31) U/L Alkaline Phosphatase 93 D (39-117) U/L Troponin I High Sens < 3.5 (<3.5-17.0) ng/L Total Protein 7.5 (6.5-8.0) g/dL Albumin 3.5 (3.5-5.0) g/dL COVID-19 (MAXIMILIAN) (Negative) COVID-19 Clin Com Hep Bs Antigen (Negative) Hep Bs Antibody (Nonreactive) Hep B Core Total Ab (Nonreactive) Hepatitis C Ab (EIA) (Nonreactive) HIV 1&2 Ab/P24 Ag 4thGn (Nonreactive) 03/12/22 03/13/22 03/13/22 Range/Units 22:27 06:24 07:36 WBC (4.8-10.8) X10*3/uL RBC (4.20-5.50) X10*6/uL Hgb (12.0-16.0) g/dl Hct (37.0-47.0) % MCV (80.0-98.0) fL MCH (27.0-33.0) pg MCHC (31.0-35.0) g/dl RDW (11.0-16.0) % Plt Count (160-400) X10*3/uL MPV (9.4-12.3) fL Immature Gran % (Auto) (0.0-0.4) % Neut % (Auto) (45-73) % Lymph % (Auto) (20-40) % [place] % (Auto) (2-11) % Eos % (Auto) (0-4) % Baso % (Auto) (0-2) % Lymph # (Auto) (1.2-4.9) X10*3/uL [place] # (Auto) (0.1-1.2) X10*3/uL Eos # (Auto) (0.0-0.4) X10*3/uL Baso # (Auto) (0.0-0.2) X10*3/uL Abs Immat Gran (auto) (0.00-0.03) X10*3/uL Absolute Neuts (auto) (2.0-8.3) x10*3/uL Absolute Nucleated RBC (0.0-0.012) X10*3/uL Nucleated RBC % (auto) (0.0-0.2) /100WBC Sodium (135-145) mmol/L Potassium (3.3-5.1) mmol/L Chloride (96-108) mmol/L Carbon Dioxide (22-29) mmol/L Anion Gap (12-20) BUN (9-16) mg/dL Creatinine (0.5-1.4) mg/dL Estim Creat Clear Calc Estimated GFR POC Glucose 245 H (60-115) mg/dL Random Glucose (60-115) mg/dL Lactic Acid 6.4 H* (0.5-2.0) mmol/L Lactic Acid F/U @ 2Hr (0.5-2.0) mmol/L Calcium (8.4-10.2) mg/dL Total Bilirubin (0.0-1.0) mg/dL Direct Bilirubin (0.0-0.5) mg/dL AST (5-31) U/L ALT (0-31) U/L Alkaline Phosphatase (39-117) U/L Troponin I High Sens (<3.5-17.0) ng/L Total Protein (6.5-8.0) g/dL Albumin (3.5-5.0) g/dL COVID-19 (MAXIMILIAN) (Negative) COVID-19 Clin Com Hep Bs Antigen Negative (Negative) Hep Bs Antibody NONREACTIVE (Nonreactive) Hep B Core Total Ab Nonreactive (Nonreactive) Hepatitis C Ab (EIA) Reactive H (Nonreactive) HIV 1&2 Ab/P24 Ag 4thGn Nonreactive (Nonreactive) 03/13/22 03/13/22 03/13/22 Range/Units 07:36 09:55 10:01 WBC (4.8-10.8) X10*3/uL RBC (4.20-5.50) X10*6/uL Hgb (12.0-16.0) g/dl Hct (37.0-47.0) % MCV (80.0-98.0) fL MCH (27.0-33.0) pg MCHC (31.0-35.0) g/dl RDW (11.0-16.0) % Plt Count (160-400) X10*3/uL MPV (9.4-12.3) fL Immature Gran % (Auto) (0.0-0.4) % Neut % (Auto) (45-73) % Lymph % (Auto) (20-40) % [place] % (Auto) (2-11) % Eos % (Auto) (0-4) % Baso % (Auto) (0-2) % Lymph # (Auto) (1.2-4.9) X10*3/uL [place] # (Auto) (0.1-1.2) X10*3/uL Eos # (Auto) (0.0-0.4) X10*3/uL Baso # (Auto) (0.0-0.2) X10*3/uL Abs Immat Gran (auto) (0.00-0.03) X10*3/uL Absolute Neuts (auto) (2.0-8.3) x10*3/uL Absolute Nucleated RBC (0.0-0.012) X10*3/uL Nucleated RBC % (auto) (0.0-0.2) /100WBC Sodium (135-145) mmol/L Potassium (3.3-5.1) mmol/L Chloride (96-108) mmol/L Carbon Dioxide (22-29) mmol/L Anion Gap (12-20) BUN (9-16) mg/dL Creatinine (0.5-1.4) mg/dL Estim Creat Clear Calc Estimated GFR POC Glucose 186 H (60-115) mg/dL Random Glucose (60-115) mg/dL Lactic Acid (0.5-2.0) mmol/L Lactic Acid F/U @ 2Hr 4.1 H* (0.5-2.0) mmol/L Calcium (8.4-10.2) mg/dL Total Bilirubin (0.0-1.0) mg/dL Direct Bilirubin (0.0-0.5) mg/dL AST (5-31) U/L ALT (0-31) U/L Alkaline Phosphatase (39-117) U/L Troponin I High Sens (<3.5-17.0) ng/L Total Protein (6.5-8.0) g/dL Albumin (3.5-5.0) g/dL COVID-19 (MAXIMILIAN) Negative (Negative) COVID-19 Clin Com See Note Hep Bs Antigen (Negative) Hep Bs Antibody (Nonreactive) Hep B Core Total Ab (Nonreactive) Hepatitis C Ab (EIA) (Nonreactive) HIV 1&2 Ab/P24 Ag 4thGn (Nonreactive) <Miguel Oquendo MD - Last Filed: 03/13/22 06:23> Lab Results 03/12/22 03/12/22 03/12/22 Range/Units 22:27 22:27 22:27 WBC 9.9 (4.8-10.8) X10*3/uL RBC 3.19 L (4.20-5.50) X10*6/uL Hgb 9.6 L (12.0-16.0) g/dl Hct 27.7 L (37.0-47.0) % MCV 86.8 (80.0-98.0) fL MCH 30.1 (27.0-33.0) pg MCHC 34.7 (31.0-35.0) g/dl RDW 13.8 (11.0-16.0) % Plt Count 242 D (160-400) X10*3/uL MPV 8.3 L (9.4-12.3) fL Immature Gran % (Auto) 1.1 H (0.0-0.4) % Neut % (Auto) 80.3 H (45-73) % Lymph % (Auto) 11.6 L (20-40) % [place] % (Auto) 6.4 (2-11) % Eos % (Auto) 0.5 (0-4) % Baso % (Auto) 0.1 (0-2) % Lymph # (Auto) 1.2 (1.2-4.9) X10*3/uL [place] # (Auto) 0.6 (0.1-1.2) X10*3/uL Eos # (Auto) 0.1 (0.0-0.4) X10*3/uL Baso # (Auto) 0.0 (0.0-0.2) X10*3/uL Abs Immat Gran (auto) 0.11 H (0.00-0.03) X10*3/uL Absolute Neuts (auto) 8.0 (2.0-8.3) x10*3/uL Absolute Nucleated RBC 0.000 (0.0-0.012) X10*3/uL Nucleated RBC % (auto) 0.0 (0.0-0.2) /100WBC Sodium 131 L (135-145) mmol/L Potassium 3.0 L (3.3-5.1) mmol/L Chloride 97 (96-108) mmol/L Carbon Dioxide 19 L (22-29) mmol/L Anion Gap 18 (12-20) BUN 19 H D (9-16) mg/dL Creatinine 0.82 (0.5-1.4) mg/dL Estim Creat Clear Calc 81.7 Estimated GFR > 60 POC Glucose (60-115) mg/dL Random Glucose 250 H (60-115) mg/dL Lactic Acid (0.5-2.0) mmol/L Lactic Acid F/U @ 2Hr (0.5-2.0) mmol/L Calcium 8.4 (8.4-10.2) mg/dL Total Bilirubin 0.2 (0.0-1.0) mg/dL Direct Bilirubin < 0.2 (0.0-0.5) mg/dL AST 104 H (5-31) U/L ALT 76 H (0-31) U/L Alkaline Phosphatase 93 D (39-117) U/L Troponin I High Sens < 3.5 (<3.5-17.0) ng/L Total Protein 7.5 (6.5-8.0) g/dL Albumin 3.5 (3.5-5.0) g/dL COVID-19 (MAXIMILIAN) (Negative) COVID-19 Clin Com Hep Bs Antigen (Negative) Hep Bs Antibody (Nonreactive) Hep B Core Total Ab (Nonreactive) Hepatitis C Ab (EIA) (Nonreactive) HIV 1&2 Ab/P24 Ag 4thGn (Nonreactive) 03/12/22 03/13/22 03/13/22 Range/Units 22:27 06:24 07:36 WBC (4.8-10.8) X10*3/uL RBC (4.20-5.50) X10*6/uL Hgb (12.0-16.0) g/dl Hct (37.0-47.0) % MCV (80.0-98.0) fL MCH (27.0-33.0) pg MCHC (31.0-35.0) g/dl RDW (11.0-16.0) % Plt Count (160-400) X10*3/uL MPV (9.4-12.3) fL Immature Gran % (Auto) (0.0-0.4) % Neut % (Auto) (45-73) % Lymph % (Auto) (20-40) % [place] % (Auto) (2-11) % Eos % (Auto) (0-4) % Baso % (Auto) (0-2) % Lymph # (Auto) (1.2-4.9) X10*3/uL [place] # (Auto) (0.1-1.2) X10*3/uL Eos # (Auto) (0.0-0.4) X10*3/uL Baso # (Auto) (0.0-0.2) X10*3/uL Abs Immat Gran (auto) (0.00-0.03) X10*3/uL Absolute Neuts (auto) (2.0-8.3) x10*3/uL Absolute Nucleated RBC (0.0-0.012) X10*3/uL Nucleated RBC % (auto) (0.0-0.2) /100WBC Sodium (135-145) mmol/L Potassium (3.3-5.1) mmol/L Chloride (96-108) mmol/L Carbon Dioxide (22-29) mmol/L Anion Gap (12-20) BUN (9-16) mg/dL Creatinine (0.5-1.4) mg/dL Estim Creat Clear Calc Estimated GFR POC Glucose 245 H (60-115) mg/dL Random Glucose (60-115) mg/dL Lactic Acid 6.4 H* (0.5-2.0) mmol/L Lactic Acid F/U @ 2Hr (0.5-2.0) mmol/L Calcium (8.4-10.2) mg/dL Total Bilirubin (0.0-1.0) mg/dL Direct Bilirubin (0.0-0.5) mg/dL AST (5-31) U/L ALT (0-31) U/L Alkaline Phosphatase (39-117) U/L Troponin I High Sens (<3.5-17.0) ng/L Total Protein (6.5-8.0) g/dL Albumin (3.5-5.0) g/dL COVID-19 (MAXIMILIAN) (Negative) COVID-19 Clin Com Hep Bs Antigen Negative (Negative) Hep Bs Antibody NONREACTIVE (Nonreactive) Hep B Core Total Ab Nonreactive (Nonreactive) Hepatitis C Ab (EIA) Reactive H (Nonreactive) HIV 1&2 Ab/P24 Ag 4thGn Nonreactive (Nonreactive) 03/13/22 03/13/22 03/13/22 Range/Units 07:36 09:55 10:01 WBC (4.8-10.8) X10*3/uL RBC (4.20-5.50) X10*6/uL Hgb (12.0-16.0) g/dl Hct (37.0-47.0) % MCV (80.0-98.0) fL MCH (27.0-33.0) pg MCHC (31.0-35.0) g/dl RDW (11.0-16.0) % Plt Count (160-400) X10*3/uL MPV (9.4-12.3) fL Immature Gran % (Auto) (0.0-0.4) % Neut % (Auto) (45-73) % Lymph % (Auto) (20-40) % [place] % (Auto) (2-11) % Eos % (Auto) (0-4) % Baso % (Auto) (0-2) % Lymph # (Auto) (1.2-4.9) X10*3/uL [place] # (Auto) (0.1-1.2) X10*3/uL Eos # (Auto) (0.0-0.4) X10*3/uL Baso # (Auto) (0.0-0.2) X10*3/uL Abs Immat Gran (auto) (0.00-0.03) X10*3/uL Absolute Neuts (auto) (2.0-8.3) x10*3/uL Absolute Nucleated RBC (0.0-0.012) X10*3/uL Nucleated RBC % (auto) (0.0-0.2) /100WBC Sodium (135-145) mmol/L Potassium (3.3-5.1) mmol/L Chloride (96-108) mmol/L Carbon Dioxide (22-29) mmol/L Anion Gap (12-20) BUN (9-16) mg/dL Creatinine (0.5-1.4) mg/dL Estim Creat Clear Calc Estimated GFR POC Glucose 186 H (60-115) mg/dL Random Glucose (60-115) mg/dL Lactic Acid (0.5-2.0) mmol/L Lactic Acid F/U @ 2Hr 4.1 H* (0.5-2.0) mmol/L Calcium (8.4-10.2) mg/dL Total Bilirubin (0.0-1.0) mg/dL Direct Bilirubin (0.0-0.5) mg/dL AST (5-31) U/L ALT (0-31) U/L Alkaline Phosphatase (39-117) U/L Troponin I High Sens (<3.5-17.0) ng/L Total Protein (6.5-8.0) g/dL Albumin (3.5-5.0) g/dL COVID-19 (MAXIMILIAN) Negative (Negative) COVID-19 Clin Com See Note Hep Bs Antigen (Negative) Hep Bs Antibody (Nonreactive) Hep B Core Total Ab (Nonreactive) Hepatitis C Ab (EIA) (Nonreactive) HIV 1&2 Ab/P24 Ag 4thGn (Nonreactive) <Jailyn Garcia DO - Last Filed: 03/13/22 10:32> Imaging Data Chest x-ray: Radiologist's impression: FINDINGS: No significant abnormality is noted involving the heart, lungs, mediastinum, bony thorax or soft tissues. XR/XR chest 1V IMPRESSION: No acute cardiopulmonary process. ? <Miguel Oquendo MD - Last Filed: 03/13/22 06:23> Critical Care Time Critical Care Time Critical Care Time: Yes <Jailyn Garcia DO - Last Filed: 03/13/22 10:32> Total Critical Care Time: 60 <Jailyn Garcia DO - Last Filed: 03/13/22 10:32> Attestation: 2L of IVF, reassessments, CT scan, IV antibiotics, review of records I attest to this time spent taking care of the patient <Jailyn Garcia DO - Last Filed: 03/13/22 10:32> Discharge Plan Discharge Clinical Impression: Drug overdose, Aspiration pneumonia, Acidosis, lactic Fever Qualifiers: Fever type: unspecified Qualified Code(s): R50.9 - Fever, unspecified <Miguel Oquendo MD - Last Filed: 03/13/22 06:23> Patient Disposition: Admitted As Inpatient <Miguel Oquendo MD - Last Filed: 03/13/22 06:23>
--- NOTE | 2022-03-12 21:42 | ECG_ITS ---
Test Reason : OVERDOSE Blood Pressure : / mmHG Vent. Rate : 084 BPM Atrial Rate : 084 BPM P-R Int : 162 ms QRS Dur : 086 ms QT Int : 400 ms P-R-T Axes : 050 073 049 degrees QTc Int : 472 ms Normal sinus rhythm Normal ECG When compared with ECG of 06-OCT-2021 22:06, No significant change was found Referred By: Miguel Oquendo Electronically Signed By:Rich Lucero
[2022-03-12 22:32] LABS: MANUAL DIFF FLAG NO
[2022-03-12 22:40] LABS: Basophils Percent Auto 0.1 % (0-2); Eosinophils Absolute Auto 0.1 X10*3/uL (0.0-0.4); Eosinophils Percent Auto 0.5 % (0-4); Hematocrit 27.7 % (37.0-47.0); Hemoglobin 9.6 g/dl (12.0-16.0); Imm Gran Abs Auto 0.11 X10*3/uL (0.00-0.03); Imm Gran Pct Auto 1.1 % (0.0-0.4); Lymphocytes Absolute Auto 1.2 X10*3/uL (1.2-4.9); Lymphocytes Percent Auto 11.6 % (20-40); Mean Corpuscular HGB Conc 34.7 g/dl (31.0-35.0); Mean Corpuscular Hemoglobin 30.1 pg (27.0-33.0); Mean Corpuscular Volume 86.8 fL (80.0-98.0); Mean Platelet Volume 8.3 fL (9.4-12.3); Monocytes Absolute Auto 0.6 X10*3/uL (0.1-1.2); Monocytes Percent Auto 6.4 % (2-11); Neutrophils Percent Auto 80.3 % (45-73); Platelet Count 242 X10*3/uL (160-400); Red Blood Count 3.19 X10*6/uL (4.20-5.50); Red Cell Distribution Width 13.8 % (11.0-16.0); White Blood Count 9.9 X10*3/uL (4.8-10.8)
[2022-03-12 22:53] LABS: Anion Gap 18 (12-20); Blood Urea Nitrogen 19 mg/dL (9-16); Calcium 8.4 mg/dL (8.4-10.2); Carbon Dioxide 19 mmol/L (22-29); Chloride 97 mmol/L (96-108); Creatinine Clr Calc Pharmacy 81.7; Estimated Glomerular Filt Rate > 60; Glucose Random 250 mg/dL (60-115); Sodium 131 mmol/L (135-145)
[2022-03-12 23:01] LABS: Troponin-I High Sensitivity < 3.5 ng/L (<3.5-17.0)
--- NOTE | 2022-03-12 23:58 | PC.NURSE ---
MD at bedside-plan for detox evaluation tomorrow.
[2022-03-13] VITALS (19 sets, daily range): BP systolic 74–140; BP diastolic 36–60; PULSE 78–107; RESP 16–22; TEMP 36.6–38.3; O2SAT 87–98; BMI 27.4
[2022-03-13] MEDS: Potassium Chloride ER 20 MEQ TAB.ER.PRT 40 MEQ PO (00:03)
[2022-03-13] MEDS: hydrOXYzine HCL 25 MG TABLET PO (00:03)
[2022-03-13 01:38] LABS: HIV AB/AG Nonreactive (Nonreactive)
[2022-03-13] MEDS: Ketorolac Tromethamine 30 MG/ML VIAL IVPUSH (05:53)
--- NOTE | 2022-03-13 06:16 | PC.NURSE ---
patient belonging is locked up in decan .
[2022-03-13 06:29] LABS: Glucose, Whole Blood 245 mg/dL (60-115)
--- NOTE | 2022-03-13 06:41 | PC.NURSE ---
Provider d/c supplemental O2-patient is 91-92% RA, resting with her eyes closed. Patient reports pain in bilateral arms improving since receiving Toradol 30 mg IV push- 3/10 on 0-10 pain scale at present.
--- NOTE | 2022-03-13 06:48 | PC.NURSE ---
Dr. Oquendo notified of vitals: T 100.2, BP 95/54, P 95.
[2022-03-13] MEDS: Lactated Ringers 1,000 ML 999 ML IV ×2 (07:42→10:00)
[2022-03-13] MEDS: cefTRIAXone sodium 2 GM in 0.9 % Sodium Chloride 50 ML IV (07:42)
[2022-03-13] MEDS: Acetaminophen 325 MG TABLET 650 MG PO ×2 (07:43→22:25)
[2022-03-13] MEDS: 0.9 % Sodium Chloride 1,000 ML 999 ML IV (07:56)
[2022-03-13 08:01] LABS: Lactic Acid 6.4 mmol/L (0.5-2.0)
[2022-03-13 08:04] LABS: COVID-19 Test Negative (Negative)
[2022-03-13] MEDS: 0.9 % Sodium Chloride 500 ML IV (08:29)
[2022-03-13 08:42] LABS: Alanine Aminotransferase 76 U/L (0-31); Albumin Level 3.5 g/dL (3.5-5.0); Alkaline Phosphatase 93 U/L (39-117); Aspartate Amino Transferase 104 U/L (5-31); Bilirubin Direct < 0.2 mg/dL (0.0-0.5); Bilirubin Total 0.2 mg/dL (0.0-1.0); Total Protein 7.5 g/dL (6.5-8.0)
[2022-03-13 08:56] LABS: HBS Num1 1.63 mIU/mL (0-7.99); HBc Num1 0.14 S/CO (0.00-0.79); Hepatitis B Core Antibody Nonreactive (Nonreactive); Hepatitis B Surface Antigen Negative (Negative); ~HepC Num1 13.54 S/CO (0.00-0.79); ~Hepatitis B Surface Antibody NONREACTIVE (Nonreactive); ~Hepatitis C Antibody Reactive (Nonreactive)
[2022-03-13 09:11] LABS: HIV Num 1 0.06 S/CO (0.00-0.99)
--- NOTE | 2022-03-13 09:31 | PHA.MEDREC ---
Addendum entered by Brittni Sanchez RPh 03/13/22 12:20: Recieved list of discharged sumary from [facility] on 03/07/22. Added all medications that were new prescripitions. Original Note: Pharmacy Consult ? Medication Reconciliation Pharmacy has completed the medication reconciliation. Patient only reports taking Lantus. Patient reports that she just ran out of her Humalog. She reports she has not taken Ativan or pantoprazole. Brittni Sanchez, PharmD
[2022-03-13 09:41] LABS: Reflex Lactate? Lactic Acid Added
[2022-03-13] MEDS: metroNIDAZOLE/NS 500 MG/100 ML PIGGYBACK 100 MG IV (09:48)
[2022-03-13] MEDS: Insulin Glargine,Hum.rec.anlog 100 UNIT/ML 10 ML VIAL 15 UNIT SUBCUT (10:04)
[2022-03-13 10:06] LABS: Glucose, Whole Blood 186 mg/dL (60-115)
--- NOTE | 2022-03-13 10:08 | PC.NURSE ---
sleeping and easily woken, nad, sr on monitor, LR and flagyl infusing separate lines.
[2022-03-13 10:21] LABS: ~Lactic Acid-LAB USE ONLY 4.1 mmol/L (0.5-2.0)
[2022-03-13] MEDS: Ampicillin Sodium/Sulbactam Na 3 GM in 0.9 % Sodium Chloride 100 ML IV ×3 (11:08→22:22)
--- NOTE | 2022-03-13 11:55 | P.HPHOSP_ITS ---
History of Present Illness Date of Service: 03/13/22 Chief Complaint: overdose 61yo F with opioid use disorder, insulin-dependent DM2, and bipolar depression came to the ED 2x yesterday for opioid overdose. The 1st time she was found unresponsive by EMS saturating 87% on room air and required 4 mg of IN naloxone. She was hyperglycemic and got 14 units of Humalog. She signed out against medical advice and then returned via EMS, requiring 12 mg of IN naloxone and BVM ventilation by EMS. She was noted to have bilateral forearm incisions from recent I+D [she is unsure when] at [facility]. This time she agreed to stay. She then developed tachypnea and tachycardia and low-grade fever of 100.2. CXR was negative, but CT chest showed bibasilar pneumonia thought to represent aspiration. She was given vancomycin and ceftriaxone. BP was 91/36 taken in the legs due to the upper arm incisions. Lactate was 6.4 and she was given 30 cc/kg of normal saline. She was also given a dose of metronidazole. This time, she agrees to stay in the hospital. Records from [facility] were requested and are pending. She denies cough, dyspnea, chest pain, palpitations, nausea, vomiting, or abdominal pain. Review of Systems Review of Systems: Yes all other systems are reviewed and are negative [facility] Medical History Diabetes mellitus Family History Mother Diabetes Sister Diabetes Social History Household Members: None Housing: Other Do you presently have visiting nurse or other home services: No Alcohol intake: current Alcohol intake frequency: holidays/special occasions only Patient Tobacco Use Status: Current everyday Tobacco user Tobacco use type: Smokeless Tobacco Smoked in Last 30 Days: No Use of substances other than those prescribed or required for medical reasons: Yes Substance Use Type: Heroin Advance Directives: No Advance Directives Information Provided: No Patient : No Meds Allergies Allergy/AdvReac Type Severity Reaction Status Date / Time No Known Allergies Allergy Verified 03/12/22 21:30 Active Medications: Current Medications Acetaminophen (Acetaminophen 325 Mg Tablet) 650 mg PO Q6H PRN PRN Reason: Pain, Mild (Pain Scale 1-3) Dextrose (Dextrose 50 % 25 Gm/50 Ml Syringe) 25 gm IVPUSH Q15M PRN; Protocol PRN Reason: per Hypoglycemia Standing Ord. Enoxaparin Sodium (Enoxaparin Sodium 40 Mg/0.4 Ml Syringe) 40 mg SUBCUT Q24H [facility] Glucose (Glucose Gel 15 Gm Gel..Gram.) 15 gm PO Q15M PRN; Protocol PRN Reason: per Hypoglycemia Standing Ord. Ampicillin Sodium/Sulbactam (Sodium 3 gm/ Sodium Chloride) 100 mls @ 200 mls/hr IV Q6H [facility] Last Admin: 03/13/22 11:08 Dose: 200 mls/hr Insulin Glargine (Insulin Glargine,Hum.Rec.Anlog 100 Unit/Ml 10 Ml Vial) 15 unit SUBCUT DAILY [facility] Last Admin: 03/13/22 10:04 Dose: 15 unit Insulin Human Lispro (Insulin Lispro 100 Unit/Ml 3 Ml Vial) 0 unit SUBCUT QIDACHS [facility]; Protocol Pharmacy Consult (Consult Rx Vancomycin Dosing) 1 each MISCELLANE DAILY PRN PRN Reason: Consult order Pharmacy Consult (Consult Rx Perform Med Rec) 1 each MISCELLANE ONCE PRN PRN Reason: Consult order Pharmacy Consult (Consult Rx Vancomycin Dosing) 1 each MISCELLANE DAILY [facility] Sodium Chloride (0.9 % Sodium Chloride Flush 3 Ml Syringe) 3 ml IVFLUSH QSHIFT [facility] Home Medications Medication Instructions Recorded Confirmed Last Taken Type acetaminophen 325 mg tablet 650 mg PO Q6H PRN Mild Pain (Scale 03/13/22 03/13/22 Unknown History Score 1-4) aripiprazole 30 mg tablet 30 mg PO DAILY 03/13/22 03/13/22 Unknown History bisacodyl 5 mg tablet 5 mg PO ONCE PRN Constipation 03/13/22 03/13/22 Unknown History hydromorphone 4 mg tablet 4 mg PO Q6H PRN Pain 03/13/22 03/13/22 Unknown History hydroxyzine HCl 25 mg tablet 1 tab PO BEDTIME PRN anxiety 03/13/22 03/13/22 Unknown History insulin glargine 100 unit/mL 30 unit subcut DAILY 03/13/22 03/13/22 Unknown History subcutaneous solution (Lantus U-100 Insulin) lorazepam 0.5 mg tablet 1 tab PO TID PRN Anxiety 03/13/22 03/13/22 Unknown History nicotine (polacrilex) 2 mg gum 2 mg PO Q2H PRN Smoking Cessation 03/13/22 03/13/22 Unknown History nicotine 21 mg/24 hr daily 1 patch topical DAILY 03/13/22 03/13/22 Unknown History transdermal patch nystatin-triamcinolone 100,000 1 appl topical DAILY 03/13/22 03/13/22 Unknown History unit/g-0.1 % topical cream pantoprazole 20 mg tablet,delayed 20 mg PO DAILY 03/13/22 03/13/22 Unknown History release polyethylene glycol 3350 17 gram 17 g PO DAILY 03/13/22 03/13/22 Unknown History oral powder packet (Miralax) sennosides 8.6 mg tablet (senna) 17.2 mg PO BEDTIME 03/13/22 03/13/22 Unknown History zolpidem 5 mg tablet 5 mg PO BEDTIME PRN Sleep 03/13/22 03/13/22 Unknown History Physical Exam Vital Signs and Narrative: Vital Signs: Last Vital Signs Temp 98.1 F 03/13/22 09:40 Pulse 83 03/13/22 10:07 Resp 18 03/13/22 10:07 BP 99/48 L 03/13/22 10:07 Pulse Ox 95 03/13/22 10:07 O2 Del Method 03/13/22 10:07 O2 Flow Rate 2 03/13/22 10:07 Oxygen Flow Rate 6 03/12/22 21:30 BMI result Body Mass Index 26.6 Gen: disheveled, anxious HEENT: sclera anicteric, moist mucus membranes Neck: supple Lungs: bilateral inspiratory crackles Heart: regular rate and rhythm, no murmurs Abd: soft, non-tender, non-distended Ext: no edema Skin: warm/well-perfused, widely sutured I+D sites bilateral anterior forearms Neuro: alert and oriented x3, no focal findings Psych: appropriate affect Results Labs CBC and Chem 7: 03/12/22 22:27 03/12/22 22:27 Labs: Laboratory Results - last 24 hr 03/12/22 03/12/22 03/12/22 22:27 22:27 22:27 MCV 86.8 MCH 30.1 MCHC 34.7 RDW 13.8 Plt Count 242 D MPV 8.3 L Immature Gran % (Auto) 1.1 H Neut % (Auto) 80.3 H Lymph % (Auto) 11.6 L [place] % (Auto) 6.4 Eos % (Auto) 0.5 Baso % (Auto) 0.1 Lymph # (Auto) 1.2 [place] # (Auto) 0.6 Eos # (Auto) 0.1 Baso # (Auto) 0.0 Abs Immat Gran (auto) 0.11 H Absolute Neuts (auto) 8.0 Absolute Nucleated RBC 0.000 Nucleated RBC % (auto) 0.0 Anion Gap 18 Estim Creat Clear Calc 81.7 Estimated GFR > 60 POC Glucose Random Glucose 250 H Lactic Acid Lactic Acid F/U @ 2Hr Calcium 8.4 Total Bilirubin 0.2 Direct Bilirubin < 0.2 AST 104 H ALT 76 H Alkaline Phosphatase 93 D Troponin I High Sens < 3.5 Total Protein 7.5 Albumin 3.5 COVID-19 ([facility]) COVID-19 Clin Com Hep Bs Antigen Hep Bs Antibody Hep B Core Total Ab Hepatitis C Ab (EIA) HIV 1&2 Ab/P24 Ag 4thGn 03/12/22 03/13/22 03/13/22 22:27 06:24 07:36 MCV MCH MCHC RDW Plt Count MPV Immature Gran % (Auto) Neut % (Auto) Lymph % (Auto) [place] % (Auto) Eos % (Auto) Baso % (Auto) Lymph # (Auto) [place] # (Auto) Eos # (Auto) Baso # (Auto) Abs Immat Gran (auto) Absolute Neuts (auto) Absolute Nucleated RBC Nucleated RBC % (auto) Anion Gap Estim Creat Clear Calc Estimated GFR POC Glucose 245 H Random Glucose Lactic Acid 6.4 H* Lactic Acid F/U @ 2Hr Calcium Total Bilirubin Direct Bilirubin AST ALT Alkaline Phosphatase Troponin I High Sens Total Protein Albumin COVID-19 ([facility]) COVID-19 Clin Com Hep Bs Antigen Negative Hep Bs Antibody NONREACTIVE Hep B Core Total Ab Nonreactive Hepatitis C Ab (EIA) Reactive H HIV 1&2 Ab/P24 Ag 4thGn Nonreactive 03/13/22 03/13/22 03/13/22 07:36 09:55 10:01 MCV MCH MCHC RDW Plt Count MPV Immature Gran % (Auto) Neut % (Auto) Lymph % (Auto) [place] % (Auto) Eos % (Auto) Baso % (Auto) Lymph # (Auto) [place] # (Auto) Eos # (Auto) Baso # (Auto) Abs Immat Gran (auto) Absolute Neuts (auto) Absolute Nucleated RBC Nucleated RBC % (auto) Anion Gap Estim Creat Clear Calc Estimated GFR POC Glucose 186 H Random Glucose Lactic Acid Lactic Acid F/U @ 2Hr 4.1 H* Calcium Total Bilirubin Direct Bilirubin AST ALT Alkaline Phosphatase Troponin I High Sens Total Protein Albumin COVID-19 ([facility]) Negative COVID-19 Clin Com See Note Hep Bs Antigen Hep Bs Antibody Hep B Core Total Ab Hepatitis C Ab (EIA) HIV 1&2 Ab/P24 Ag 4thGn ITS Impressions Chest X-Ray 03/12/22 22:11 IMPRESSION: No acute cardiopulmonary process. Chest X-Ray 03/13/22 05:55 IMPRESSION: No acute findings Chest CT 03/13/22 07:28 IMPRESSION: Bilateral pneumonitis/pneumonia, greatest in the bilateral lower lobes. Evidence of old granulomatous disease. Fleischner guidelines were followed. Imaging Radiologist's Impressions: Impressions Chest X-Ray 03/12/22 22:11 IMPRESSION: No acute cardiopulmonary process. Chest X-Ray 03/13/22 05:55 IMPRESSION: No acute findings Chest CT 03/13/22 07:28 IMPRESSION: Bilateral pneumonitis/pneumonia, greatest in the bilateral lower lobes. Evidence of old granulomatous disease. Fleischner guidelines were followed. Assessment and Plan (1) Drug overdose: Status: Acute (2) Fever: Qualifiers: Fever type: unspecified Qualified Code(s): R50.9 - Fever, unspecified Status: Acute (3) Aspiration pneumonia: Status: Acute (4) Acidosis, lactic: Status: Acute Plan 61yo F with opioid use disorder, insulin-dependent DM2, and bipolar depression came to the ED 2x yesterday for opioid overdose and on the 2nd visit, developed severe sepsis and was found to have aspiration PNA # severe sepsis # aspiration pneumonia - admit to M/S, continue isotonic fluids, give vancomycin + ampicillin/sulbactam, follow BCx # purulent cellulitis - continue vancomycin, request records from [facility] # OUD - Addiction Medicine consult re methadone initiation # DM2 - basal/bolus insulin, check A1c # mood disorder - continue aripiprazole # tobacco abuse - NRT # VTE ppx - LMWH # code - full I anticipate that the patient will stay at least 2 midnights in hospital due to the above reasons. It is not reasonable or safe to care for them in a less acute setting. Quality Stroke Does the patient have a stroke diagnosis?: No VTE Prior VTE?: No VTE Risk Level:: Medical - moderate - high VTE Device Contraindication: N/A - Device Ordered VTE Drug Contraindication: N/A - Med Ordered
[2022-03-13 12:05] LABS: Reflex Lactate? 2 Y
[2022-03-13 12:34] LABS: Creatinine Clr Calc Pharmacy 84.8; Estimated Glomerular Filt Rate > 60
--- NOTE | 2022-03-13 12:53 | PHA.PROG ---
Admission Date/Time: March 13, 2022 11:52 Indication: aspiriation pneumonia and cellulitis Weight in k.379 kg Adjusted body weight in K.3 kg [employer] body weight in K.9 kg Obesity Dosing Indication % IBW: 124 % Serum Creatinine - Last 168 Hours 03/12/22 03/13/22 22:27 12:05 Creatinine 0.82 0.79 Estimated CrCl and GFR - Last 168 Hours 03/12/22 03/13/22 22:27 12:05 Estim Creat Clear Calc 81.7 84.8 Estimated GFR > 60 > 60 Vancomycin Loading Dose: 2000 mg Current Vancomycin Dosing Regimen: 750 mg Q12H Date and Time for next Vancomycin Level to be drawn: 03/14 @ 1800 Pharmacist Comments on Vancomycin Plan: Patient requires obesity dosing since IBW > 120% First dose vancomycin 2000 mg (25 mg/kg) given in the ED 03/13 @ 0807. Patient received an adequate loading dose. Maintenance dose vancomycin 750 mg Q12H to bed given 03/13 @ 2000. Expected AUC 470 with a trough of 14.6 Trough to be drawn prior to 4th dose Pharmacy will monitor renal fucntion daily. Brittni Sanchez, Phuc Vancomycin dosing will take advantage of [employer] as a clinical decision support tool that uses Bayesian modeling to calculate individual patient's pharmacokinetic parameters and forecast the patient's drug concentration time course with the target goal AUC 24 range of 400 - 600 mg/L/hr.
[2022-03-13] MEDS: methADONE HCl 20 MG/2 ML ORAL.CONC PO (13:26)
[2022-03-13] MEDS: Lactated Ringers 1,000 ML 100 ML IVCONT ×2 (13:32→22:52)
[2022-03-13 13:37] LABS: ~Lactic Acid-LAB USE ONLY 4.6 mmol/L (0.5-2.0)
--- NOTE | 2022-03-13 14:41 | PC.NURSE ---
patient a&ox3, oob independently to bathroom-steady gait, pt denies pain discomfort, ivf running per order, pt bp soft as noted by ed nurse in report- per ed nurse providers are aware, call martin within reach, will continue to monitor
--- NOTE | 2022-03-13 17:22 | MHC.RECOVSUP ---
? Reason for consult Recovery Support o Current location: Overflow o Identified substance use concern: Heroin - Overdose - Withdrawal - Seeking ATS (detox) - Support ? Intervention: o Community resources provided o Harm reduction discussion ? Plan: o Patient to follow up with [facility] after discharge ? Additional information: Met with patient and talked about recovery and Harm reduction.. 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
--- NOTE | 2022-03-13 17:27 | PC.NURSE ---
poc and insulin will be obtained/given when dinner arrives
[2022-03-13 18:02] LABS: Glucose, Whole Blood 174 mg/dL (60-115)
[2022-03-13] MEDS: Insulin Lispro 100 UNIT/ML 3 ML VIAL SUBCUT ×2 (18:42→22:21)
--- NOTE | 2022-03-13 19:29 | PC.NURSE ---
called floor to give report, rn will call back
[2022-03-13] MEDS: vancomycin HCL 750 MG in 0.9 % Sodium Chloride 250 ML 265 MG IV (20:19)
--- NOTE | 2022-03-13 20:20 | PC.NURSE ---
patient a&ox3, ivf running per order, iv antibiotics running per order, pt denying pain and discomfort at this time, call martin within reach, will continue to monitor.
--- NOTE | 2022-03-13 20:29 | HO.ADDICT_ITS ---
History of Present Illness Date of Service: 03/13/2022 Chief Complaint: Aspiration PNA, heroin overdose Reason for Consult: opioid overdoseX2 and methadone dosing Requesting physician: Jeanette Garcia Sources of Information: patient interviewed and chart reviewed HPI Narrative: Patient is a 61 year old female currently medically admitted with aspiration pneumonia following opioid overdose. Of note, patient presented to [facility] ED same day back to back for overdose requiring narcan. Patient received methadone 20mg while in ED. When seen by this administrative underwriter, patient appeared to be sleeping comfortably and easily awoken. Upon opening eyes, patient requesting numerous medications, however unable to articulate any sx that medications would be addressing. Reported minimal effect from methadone dose received. States that she has been using approx 2 bundles of heroin daily for the last 3 months. Unclear how long patient has been using opioids. Denies any history of ATS admissions or methadone treatment. Brief treatment with buprenorphine. Briefly reviewed goals for MOUD while inpatient and patient reported desire to remain in treatment with methadone following discharge. Unclear history with other substances including alcohol as patient reported yes to every substance followed by, can I have medication for that too . Social and Bh history not reviewed at this time Review of Systems Constitutional: Reports as per HPI and Reports malaise Diagnostics Vital Signs (24Hr): Vital Signs - 24 hr 03/12/22 21:30 03/12/22 21:35 03/13/22 01:28 Temperature 97.5 F 97.8 F Pulse Rate 97 88 107 H Respiratory Rate 20 20 16 Blood Pressure 149/71 H 135/71 140/60 H Pulse Oximetry 89 L 90 L 87 L Oxygen Delivery Method Nasal Cannula Oxymask Nasal Cannula Oxymask Oxygen Flow Rate 9 9 03/13/22 01:59 03/13/22 05:05 03/13/22 05:34 Temperature 97.8 F 97.8 F 97.8 F Pulse Rate 93 97 Respiratory Rate 22 H 22 H 16 Blood Pressure 130/55 L 104/51 L 107/53 L Pulse Oximetry 88 L 98 98 Oxygen Delivery Method Oxymask Simple Mask Oxymask Oxygen Flow Rate 9 6 6 03/13/22 06:22 03/13/22 07:32 03/13/22 07:53 Temperature 100.2 F Pulse Rate 95 88 81 Respiratory Rate 20 17 19 Blood Pressure 95/54 L 93/41 L 84/49 L Pulse Oximetry 91 L 96 95 Oxygen Delivery Method Room Air Room Air Oxygen Flow Rate 03/13/22 08:11 03/13/22 08:41 03/13/22 08:51 Temperature Pulse Rate 82 81 81 Respiratory Rate 19 19 Blood Pressure 74/44 L 91/36 L 99/38 L Pulse Oximetry 94 95 Oxygen Delivery Method Nasal Cannula Nasal Cannula Oxygen Flow Rate 2 2 03/13/22 09:40 03/13/22 10:07 03/13/22 10:55 Temperature 98.1 F Pulse Rate 79 83 78 Respiratory Rate 18 18 19 Blood Pressure 90/40 L 99/48 L 102/41 L Pulse Oximetry 97 95 96 Oxygen Delivery Method Nasal Cannula Nasal Cannula Nasal Cannula Oxygen Flow Rate 2 2 2 03/13/22 11:15 03/13/22 12:00 03/13/22 14:06 Temperature 98.2 F Pulse Rate 82 78 85 Respiratory Rate 19 16 Blood Pressure 90/42 L 102/49 L 88/44 L Pulse Oximetry 96 97 94 Oxygen Delivery Method Nasal Cannula Nasal Cannula Oxygen Flow Rate 2 2 03/13/22 16:35 Temperature 98.0 F Pulse Rate 81 Respiratory Rate 16 Blood Pressure Pulse Oximetry 97 Oxygen Delivery Method Room Air Oxygen Flow Rate BMI result Body Mass Index 26.6 Labs Results: 03/12/22 22:27 03/13/22 12:05 Labs: Laboratory Results - last 48 hr 03/12/22 03/12/22 03/12/22 22:27 22:27 22:27 WBC 9.9 RBC 3.19 L Hgb 9.6 L Hct 27.7 L MCV 86.8 MCH 30.1 MCHC 34.7 RDW 13.8 Plt Count 242 D MPV 8.3 L Immature Gran % (Auto) 1.1 H Neut % (Auto) 80.3 H Lymph % (Auto) 11.6 L Barton % (Auto) 6.4 Eos % (Auto) 0.5 Baso % (Auto) 0.1 Lymph # (Auto) 1.2 Barton # (Auto) 0.6 Eos # (Auto) 0.1 Baso # (Auto) 0.0 Abs Immat Gran (auto) 0.11 H Absolute Neuts (auto) 8.0 Absolute Nucleated RBC 0.000 Nucleated RBC % (auto) 0.0 Sodium 131 L Potassium 3.0 L Chloride 97 Carbon Dioxide 19 L Anion Gap 18 BUN 19 H D Creatinine 0.82 Estim Creat Clear Calc 81.7 Estimated GFR > 60 POC Glucose Random Glucose 250 H Lactic Acid Lactic Acid F/U @ 2Hr Lactic Acid F/U @ 4Hr Calcium 8.4 Total Bilirubin 0.2 Direct Bilirubin < 0.2 AST 104 H ALT 76 H Alkaline Phosphatase 93 D Troponin I High Sens < 3.5 Total Protein 7.5 Albumin 3.5 COVID-19 ([facility]) COVID-19 Clin Com Hep Bs Antigen Hep Bs Antibody Hep B Core Total Ab Hepatitis C Ab (EIA) HIV 1&2 Ab/P24 Ag 4thGn 03/12/22 03/13/22 03/13/22 22:27 06:24 07:36 WBC RBC Hgb Hct MCV MCH MCHC RDW Plt Count MPV Immature Gran % (Auto) Neut % (Auto) Lymph % (Auto) Barton % (Auto) Eos % (Auto) Baso % (Auto) Lymph # (Auto) Barton # (Auto) Eos # (Auto) Baso # (Auto) Abs Immat Gran (auto) Absolute Neuts (auto) Absolute Nucleated RBC Nucleated RBC % (auto) Sodium Potassium Chloride Carbon Dioxide Anion Gap BUN Creatinine Estim Creat Clear Calc Estimated GFR POC Glucose 245 H Random Glucose Lactic Acid 6.4 H* Lactic Acid F/U @ 2Hr Lactic Acid F/U @ 4Hr Calcium Total Bilirubin Direct Bilirubin AST ALT Alkaline Phosphatase Troponin I High Sens Total Protein Albumin COVID-19 ([facility]) COVID-19 Clin Com Hep Bs Antigen Negative Hep Bs Antibody NONREACTIVE Hep B Core Total Ab Nonreactive Hepatitis C Ab (EIA) Reactive H HIV 1&2 Ab/P24 Ag 4thGn Nonreactive 03/13/22 03/13/22 03/13/22 07:36 09:55 10:01 WBC RBC Hgb Hct MCV MCH MCHC RDW Plt Count MPV Immature Gran % (Auto) Neut % (Auto) Lymph % (Auto) Barton % (Auto) Eos % (Auto) Baso % (Auto) Lymph # (Auto) Barton # (Auto) Eos # (Auto) Baso # (Auto) Abs Immat Gran (auto) Absolute Neuts (auto) Absolute Nucleated RBC Nucleated RBC % (auto) Sodium Potassium Chloride Carbon Dioxide Anion Gap BUN Creatinine Estim Creat Clear Calc Estimated GFR POC Glucose 186 H Random Glucose Lactic Acid Lactic Acid F/U @ 2Hr 4.1 H* Lactic Acid F/U @ 4Hr Calcium Total Bilirubin Direct Bilirubin AST ALT Alkaline Phosphatase Troponin I High Sens Total Protein Albumin COVID-19 ([facility]) Negative COVID-19 Clin Com See Note Hep Bs Antigen Hep Bs Antibody Hep B Core Total Ab Hepatitis C Ab (EIA) HIV 1&2 Ab/P24 Ag 4thGn 03/13/22 03/13/22 03/13/22 12:05 13:10 17:59 WBC RBC Hgb Hct MCV MCH MCHC RDW Plt Count MPV Immature Gran % (Auto) Neut % (Auto) Lymph % (Auto) Barton % (Auto) Eos % (Auto) Baso % (Auto) Lymph # (Auto) Barton # (Auto) Eos # (Auto) Baso # (Auto) Abs Immat Gran (auto) Absolute Neuts (auto) Absolute Nucleated RBC Nucleated RBC % (auto) Sodium Potassium Chloride Carbon Dioxide Anion Gap BUN Creatinine 0.79 Estim Creat Clear Calc 84.8 Estimated GFR > 60 POC Glucose 174 H Random Glucose Lactic Acid Lactic Acid F/U @ 2Hr Lactic Acid F/U @ 4Hr 4.6 H* Calcium Total Bilirubin Direct Bilirubin AST ALT Alkaline Phosphatase Troponin I High Sens Total Protein Albumin COVID-19 ([facility]) COVID-19 Clin Com Hep Bs Antigen Hep Bs Antibody Hep B Core Total Ab Hepatitis C Ab (EIA) HIV 1&2 Ab/P24 Ag 4thGn Imaging Radiology Impressions: ITS Impressions Chest X-Ray 03/12/22 22:11 IMPRESSION: No acute cardiopulmonary process. Chest X-Ray 03/13/22 05:55 IMPRESSION: No acute findings Chest CT 03/13/22 07:28 IMPRESSION: Bilateral pneumonitis/pneumonia, greatest in the bilateral lower lobes. Evidence of old granulomatous disease. Fleischner guidelines were followed. Mental Status Exam Mental Status Exam Patient Appearance: Disheveled Level of Consciousness: Awake and Appropriate Affect Description: Relaxed Medications Medications Current Medications Acetaminophen (Acetaminophen 325 Mg Tablet) 650 mg PO Q6H PRN PRN Reason: Pain, Mild (Pain Scale 1-3) Aripiprazole (Aripiprazole 30 Mg Tablet) 30 mg PO DAILY [facility] Dextrose (Dextrose 50 % 25 Gm/50 Ml Syringe) 25 gm IVPUSH Q15M PRN; Protocol PRN Reason: per Hypoglycemia Standing Ord. Enoxaparin Sodium (Enoxaparin Sodium 40 Mg/0.4 Ml Syringe) 40 mg SUBCUT Q24H [facility] Last Admin: 03/13/22 12:52 Dose: Not Given Glucose (Glucose Gel 15 Gm Gel..Gram.) 15 gm PO Q15M PRN; Protocol PRN Reason: per Hypoglycemia Standing Ord. Ampicillin Sodium/Sulbactam (Sodium 3 gm/ Sodium Chloride) 100 mls @ 200 mls/hr IV Q6H [facility] Last Infusion: 03/13/22 17:40 Dose: Infused Lactated Ringer's (Lr) 1,000 mls @ 100 mls/hr IVCONT .Q10H [facility] Last Admin: 03/13/22 13:32 Dose: 100 mls/hr Vancomycin HCl 750 mg/ Sodium (Chloride) 265 mls @ 265 mls/hr IV Q12H [facility] Last Admin: 03/13/22 20:19 Dose: 265 mls/hr Insulin Glargine (Insulin Glargine,Hum.Rec.Anlog 100 Unit/Ml 10 Ml Vial) 15 unit SUBCUT DAILY [facility] Last Admin: 03/13/22 10:04 Dose: 15 unit Insulin Human Lispro (Insulin Lispro 100 Unit/Ml 3 Ml Vial) 0 unit SUBCUT QIDACHS [facility]; Protocol Last Admin: 03/13/22 18:42 Dose: 2 unit Methadone HCl (Methadone Hcl 20 Mg/2 Ml Oral.Conc) 30 mg PO DAILY [facility] Nicotine Polacrilex (Nicotine Polacrilex 2 Mg Gum) 2 mg BUCCAL Q2H PRN PRN Reason: Smoking Cessation Omeprazole (Omeprazole 20 Mg Capsule.Dr) 20 mg PO DAILY@0630 [facility] Ondansetron HCl (Ondansetron Hcl 4 Mg/2 Ml Vial) 4 mg IVPUSH Q8H PRN PRN Reason: Nausea and Vomiting Oxycodone HCl (Oxycodone Hcl Immed Release 5 Mg Tablet) 5 mg PO Q4H PRN PRN Reason: moderate pain Pharmacy Consult (Consult Rx Vancomycin Dosing) 1 each MISCELLANE DAILY PRN PRN Reason: Consult order Pharmacy Consult (Consult Rx Perform Med Rec) 1 each MISCELLANE ONCE PRN PRN Reason: Consult order Pharmacy Consult (Consult Rx Vancomycin Dosing) 1 each MISCELLANE DAILY [facility] Senna (Sennosides 8.6 Mg Tablet) 17.2 mg PO BEDTIME [facility] Sodium Chloride (0.9 % Sodium Chloride Flush 3 Ml Syringe) 3 ml IVFLUSH QSHIFT [facility] Last Admin: 03/13/22 15:58 Dose: Not Given Allergies Allergies Allergy/AdvReac Type Severity Reaction Status Date / Time No Known Allergies Allergy Verified 03/12/22 21:30 Assessment & Plan Assessment & Plan (1) Opioid use disorder: Status: Acute Code(s): F11.90 - Opioid use, unspecified, uncomplicated Assessment and Plan: * methadone 30mg ordered for tomorrow morning (03/14) * UDS ordered * follow up in AM I spent ____25__ minutes with the patient and/or on the patient floor today, greater than?50% of which was spent counseling/coordinating care. PMFSH Past Medical History Medical History Diabetes mellitus Family History Family History Mother Diabetes Sister Diabetes Social History Social History Household Members: None Housing: Other Do you presently have visiting nurse or other home services: No Alcohol intake: current Alcohol intake frequency: holidays/special occasions only Patient Tobacco Use Status: Current everyday Tobacco user Tobacco use type: Smokeless Tobacco Smoked in Last 30 Days: No Use of substances other than those prescribed or required for medical reasons: Yes Substance Use Type: Heroin Advance Directives: No Advance Directives Information Provided: No Patient : No
[2022-03-13 21:33] LABS: Glucose, Whole Blood 160 mg/dL (60-115)
[2022-03-13] MEDS: Sennosides 8.6 MG TABLET 17.2 MG PO (22:21)
[2022-03-13] MEDS: oxyCODONE HCl Immed Release 5 MG TABLET PO (22:25)
[2022-03-13] MEDS: Nicotine 21 MG PATCH.TD24 TRANSDERMA (22:52)
[2022-03-14] MEDS: oxyCODONE HCl Immed Release 5 MG TABLET PO ×5 (03:00→23:16)
[2022-03-14] MEDS: Ampicillin Sodium/Sulbactam Na 3 GM in 0.9 % Sodium Chloride 100 ML IV ×4 (03:03→23:12)
[2022-03-14 03:10] VITALS: BP 106/51; PULSE 78; RESP 17; TEMP 36.3; O2SAT 95
[2022-03-14] MEDS: Omeprazole 20 MG CAPSULE.DR PO (05:41)
[2022-03-14 06:39] LABS: Hematocrit 23.9 % (37.0-47.0); Mean Corpuscular HGB Conc 33.5 g/dl (31.0-35.0); Mean Corpuscular Hemoglobin 29.7 pg (27.0-33.0); Mean Corpuscular Volume 88.8 fL (80.0-98.0); Mean Platelet Volume 8.9 fL (9.4-12.3); Platelet Count 165 X10*3/uL (160-400); Red Blood Count 2.69 X10*6/uL (4.20-5.50); Red Cell Distribution Width 14.2 % (11.0-16.0); White Blood Count 11.8 X10*3/uL (4.8-10.8)
[2022-03-14 06:58] LABS: Estimated Average Glucose 206 mg/dL; Hemoglobin A1c % 8.8 %
[2022-03-14 07:00] LABS: Alanine Aminotransferase 46 U/L (0-31); Albumin Level 2.7 g/dL (3.5-5.0); Alkaline Phosphatase 190 U/L (39-117); Anion Gap 12 (12-20); Aspartate Amino Transferase 64 U/L (5-31); Bilirubin Total 0.8 mg/dL (0.0-1.0); Blood Urea Nitrogen 10 mg/dL (9-16); Calcium 8.2 mg/dL (8.4-10.2); Carbon Dioxide 24 mmol/L (22-29); Chloride 106 mmol/L (96-108); Creatinine Clr Calc Pharmacy 104.6; Estimated Glomerular Filt Rate > 60; Glucose Random 131 mg/dL (60-115); Magnesium 1.7 mg/dL (1.6-2.6); Potassium 3.5 mmol/L (3.3-5.1); Sodium 138 mmol/L (135-145); Total Protein 5.9 g/dL (6.5-8.0)
[2022-03-14 07:22] VITALS: BP 118/58; PULSE 78; RESP 18; TEMP 37.2; O2SAT 93
[2022-03-14] MEDS: ARIPiprazole 30 MG TABLET PO (07:38)
[2022-03-14] MEDS: Nicotine 21 MG PATCH.TD24 TRANSDERMA (07:40)
[2022-03-14] MEDS: methADONE HCl 20 MG/2 ML ORAL.CONC 30 MG PO (07:42)
[2022-03-14] MEDS: Lactated Ringers 1,000 ML 100 ML IVCONT ×2 (07:43→20:54)
[2022-03-14] MEDS: Insulin Glargine,Hum.rec.anlog 100 UNIT/ML 10 ML VIAL 15 UNIT SUBCUT (07:46)
[2022-03-14] MEDS: vancomycin HCL 750 MG in 0.9 % Sodium Chloride 250 ML 265 MG IV (07:52)
[2022-03-14 07:55] LABS: Glucose, Whole Blood 125 mg/dL (60-115)
--- NOTE | 2022-03-14 08:14 | HE.PHANOTE ---
Vancomycin Dosing Adendum Trough tonight @1800. Renal function improving, may need to increase dose. Continue per regimen for now
[2022-03-14 08:58] LABS: Immature Retic Fraction 10.7 % (3.0-15.9); Retic HGB Equivalent 31.2 pg (30.0-35.0); Reticulocyte Percent 2.8 % (0.5-1.8); Reticulocytes Absolute 0.073 X10*6/uL (0.026-0.095)
[2022-03-14 09:18] LABS: ~Hepatitis A Antibody IgM Nonreactive (Nonreactive)
[2022-03-14 09:18] LABS: Iron 12 mcg/dL (30-160); Lactate Dehydrogenase 207 U/L (122-220); Percent Iron Saturation 4 % (15-50); Total Iron Binding Capacity 337 mcg/dL (228-428); Unsaturated Iron Binding 325 ug/dL
[2022-03-14 09:28] LABS: Ferritin 223 ng/mL (10-250)
[2022-03-14 10:13] LABS: Procalcitonin 19.91 ng/mL
[2022-03-14 10:31] LABS: Folate 9.5 ng/mL (> or = 4.0); Vitamin B12 546 pg/mL (200-900)
--- NOTE | 2022-03-14 11:25 | P.PNIM_ITS ---
Subjective Subjective Date of Service: 03/14/22 Interval History: Coughing No fever Started on methadone Review of Systems Review of Systems: Yes all other systems are reviewed and are negative Physical Exam Vital Signs: Vital Signs: Last Vital Signs Temp 98.9 F 03/14/22 07:22 Pulse 78 03/14/22 07:22 Resp 18 03/14/22 07:22 BP 118/58 L 03/14/22 07:22 Pulse Ox 93 03/14/22 07:22 O2 Del Method 03/14/22 07:22 O2 Flow Rate 2 03/14/22 07:22 Oxygen Flow Rate 6 03/12/22 21:30 BMI result Body Mass Index 27.4 Gen: disheveled, anxious HEENT: sclera anicteric, moist mucus membranes Neck: supple Lungs: bilateral inspiratory crackles Heart: regular rate and rhythm, no murmurs Abd: soft, non-tender, non-distended Ext: no edema Skin: warm/well-perfused, widely sutured I+D sites bilateral anterior extremities Neuro: alert and oriented x3, no focal findings Psych: appropriate affect Objective Data Active Medications Acetaminophen (Acetaminophen 325 Mg Tablet) 650 mg PO Q6H PRN PRN Reason: Pain, Mild (Pain Scale 1-3) Last Admin: 03/13/22 22:25 Dose: 650 mg Documented By: RUBY Aripiprazole (Aripiprazole 30 Mg Tablet) 30 mg PO DAILY [facility] Last Admin: 03/14/22 07:38 Dose: 30 mg Documented By: FREDERIC Dextrose (Dextrose 50 % 25 Gm/50 Ml Syringe) 25 gm IVPUSH Q15M PRN; Protocol PRN Reason: per Hypoglycemia Standing Ord. Enoxaparin Sodium (Enoxaparin Sodium 40 Mg/0.4 Ml Syringe) 40 mg SUBCUT Q24H [facility] Last Admin: 03/13/22 12:52 Dose: Not Given Documented By: LALA Non-Admin Reason: Patient Refused Glucose (Glucose Gel 15 Gm Gel..Gram.) 15 gm PO Q15M PRN; Protocol PRN Reason: per Hypoglycemia Standing Ord. Hydroxyzine HCl (Hydroxyzine Hcl 25 Mg Tablet) 25 mg PO Q8H PRN PRN Reason: anxiety/restlessness Ampicillin Sodium/Sulbactam (Sodium 3 gm/ Sodium Chloride) 100 mls @ 200 mls/hr IV Q6H [facility] Last Infusion: 03/14/22 11:23 Dose: 0 mls/hr Documented By: FREDERIC Lactated Ringer's (Lr) 1,000 mls @ 100 mls/hr IVCONT .Q10H [facility] Last Admin: 03/14/22 07:43 Dose: 100 mls/hr Documented By: FREDERIC Vancomycin HCl 750 mg/ Sodium (Chloride) 265 mls @ 265 mls/hr IV Q12H [facility] Last Infusion: 03/14/22 10:28 Dose: 0 mls/hr Documented By: FREDERIC Insulin Glargine (Insulin Glargine,Hum.Rec.Anlog 100 Unit/Ml 10 Ml Vial) 15 unit SUBCUT DAILY [facility] Last Admin: 03/14/22 07:46 Dose: 15 unit Documented By: FREDERIC Insulin Human Lispro (Insulin Lispro 100 Unit/Ml 3 Ml Vial) 0 unit SUBCUT QIDACHS [facility]; Protocol Last Admin: 03/14/22 07:53 Dose: Not Given Documented By: FREDERIC Non-Admin Reason: No Insulin Coverage Methadone HCl (Methadone Hcl 20 Mg/2 Ml Oral.Conc) 30 mg PO DAILY [facility] Last Admin: 03/14/22 07:42 Dose: 30 mg Documented By: FREDERIC Nicotine (Nicotine 21 Mg Patch.Td24) 21 mg TRANSDERMA DAILY [facility] Last Admin: 03/14/22 07:40 Dose: 21 mg Documented By: FREDERIC Nicotine Polacrilex (Nicotine Polacrilex 2 Mg Gum) 2 mg BUCCAL Q2H PRN PRN Reason: Smoking Cessation Omeprazole (Omeprazole 20 Mg Capsule.Dr) 20 mg PO DAILY@0630 [facility] Last Admin: 03/14/22 05:41 Dose: 20 mg Documented By: RUBY Ondansetron HCl (Ondansetron Hcl 4 Mg/2 Ml Vial) 4 mg IVPUSH Q8H PRN PRN Reason: Nausea and Vomiting Oxycodone HCl (Oxycodone Hcl Immed Release 5 Mg Tablet) 5 mg PO Q4H PRN PRN Reason: moderate pain Last Admin: 03/14/22 07:38 Dose: 5 mg Documented By: FREDERIC Pharmacy Consult (Consult Rx Vancomycin Dosing) 1 each MISCELLANE DAILY PRN PRN Reason: Consult order Pharmacy Consult (Consult Rx Perform Med Rec) 1 each MISCELLANE ONCE PRN PRN Reason: Consult order Pharmacy Consult (Consult Rx Vancomycin Dosing) 1 each MISCELLANE DAILY [facility] Senna (Sennosides 8.6 Mg Tablet) 17.2 mg PO BEDTIME [facility] Last Admin: 03/13/22 22:21 Dose: 17.2 mg Documented By: RUBY Sodium Chloride (0.9 % Sodium Chloride Flush 3 Ml Syringe) 3 ml IVFLUSH QSHIFT [facility] Last Admin: 03/14/22 07:40 Dose: Not Given Documented By: FREDERIC Non-Admin Reason: IV Running Labs CBC & Chem 7: 03/14/22 05:43 03/14/22 05:43 Labs: Laboratory Results - last 24 hr 03/13/22 03/13/22 03/13/22 12:05 13:10 17:59 MCV MCH MCHC RDW Plt Count MPV Absolute Nucleated RBC Nucleated RBC % (auto) Absolute Retic Percent Retic Immature Retic Fraction Retic Hgb Equivalent Anion Gap Estim Creat Clear Calc 84.8 Estimated GFR > 60 POC Glucose 174 H Random Glucose Estimat Average Glucose Hemoglobin A1c % Lactic Acid F/U @ 4Hr 4.6 H* Calcium Magnesium Iron TIBC % Saturation Unsat Iron Binding Ferritin Total Bilirubin AST ALT Alkaline Phosphatase Lactate Dehydrogenase Total Protein Albumin Vitamin B12 Folate Procalcitonin 03/13/22 03/14/22 03/14/22 21:29 05:43 05:43 MCV 88.8 MCH 29.7 MCHC 33.5 RDW 14.2 Plt Count 165 D MPV 8.9 L Absolute Nucleated RBC 0.000 Nucleated RBC % (auto) 0.0 Absolute Retic 0.073 Percent Retic 2.8 H Immature Retic Fraction 10.7 Retic Hgb Equivalent 31.2 Anion Gap 12 Estim Creat Clear Calc 104.6 Estimated GFR > 60 POC Glucose 160 H Random Glucose 131 H Estimat Average Glucose Hemoglobin A1c % Lactic Acid F/U @ 4Hr Calcium 8.2 L Magnesium 1.7 Iron 12 L TIBC 337 % Saturation 4 L Unsat Iron Binding 325 Ferritin 223 Total Bilirubin 0.8 AST 64 H ALT 46 H Alkaline Phosphatase 190 H D Lactate Dehydrogenase 207 Total Protein 5.9 L D Albumin 2.7 L D Vitamin B12 Folate Procalcitonin 03/14/22 03/14/22 03/14/22 05:43 05:43 05:43 MCV MCH MCHC RDW Plt Count MPV Absolute Nucleated RBC Nucleated RBC % (auto) Absolute Retic Percent Retic Immature Retic Fraction Retic Hgb Equivalent Anion Gap Estim Creat Clear Calc Estimated GFR POC Glucose Random Glucose Estimat Average Glucose 206 Hemoglobin A1c % 8.8 Lactic Acid F/U @ 4Hr Calcium Magnesium Iron TIBC % Saturation Unsat Iron Binding Ferritin Total Bilirubin AST ALT Alkaline Phosphatase Lactate Dehydrogenase Total Protein Albumin Vitamin B12 546 Folate 9.5 Procalcitonin 19.91 03/14/22 07:29 MCV MCH MCHC RDW Plt Count MPV Absolute Nucleated RBC Nucleated RBC % (auto) Absolute Retic Percent Retic Immature Retic Fraction Retic Hgb Equivalent Anion Gap Estim Creat Clear Calc Estimated GFR POC Glucose 125 H Random Glucose Estimat Average Glucose Hemoglobin A1c % Lactic Acid F/U @ 4Hr Calcium Magnesium Iron TIBC % Saturation Unsat Iron Binding Ferritin Total Bilirubin AST ALT Alkaline Phosphatase Lactate Dehydrogenase Total Protein Albumin Vitamin B12 Folate Procalcitonin Microbiology Microbiology Results: Microbiology 03/13/22 07:36 Blood Culture - Preliminary Blood - Venous No growth after 24 hours. 03/13/22 07:36 Blood Culture - Preliminary Blood - Venous No growth after 24 hours. Assessment and Plan (1) Opioid use disorder: Status: Acute Plan hospital d#2 61yo F with opioid use disorder, insulin-dependent DM2, and bipolar depression came to the ED 2x on 03/12/22 for opioid overdose and on the 2nd visit, developed severe sepsis and was found to have aspiration PNA # severe sepsis # aspiration pneumonia - continue isotonic fluids until PO intake adequate, continue ABX- on d#2 of vancomycin + ampicillin/sulbactam, follow BCx, trend PCT [19 today] # purulent cellulitis - continue vancomycin d#2, request records from [facility] re: I+D to see if cultures s ent and to see when sutures should be removed # HCV Ab positive - viral load pending # iron def anemia - start PO repletion, check FOBT # opioid use disorder - Addiction Medicine consulted, started methadone # DM2 - basal/bolus insulin, A1c 8.8 # mood disorder - continue aripiprazole # tobacco abuse - NRT # VTE ppx - LMWH # dispo - requests inpt substance rehab In my clinical judgment, the patient requires continued hospitalization for the following reasons: IV ABX Quality Stroke Does the patient have a stroke diagnosis?: No VTE Prior VTE?: No VTE Risk Level:: Medical - moderate - high VTE Device Contraindication: N/A - Device Ordered VTE Drug Contraindication: N/A - Med Ordered
[2022-03-14 11:33] LABS: Glucose, Whole Blood 177 mg/dL (60-115)
[2022-03-14] MEDS: Insulin Lispro 100 UNIT/ML 3 ML VIAL SUBCUT ×2 (11:58→17:20)
[2022-03-14] MEDS: Enoxaparin Sodium 40 MG/0.4 ML SYRINGE SUBCUT (11:58)
[2022-03-14] MEDS: Ferrous Sulfate 324 MG TABLET.DR PO (11:58)
[2022-03-14] MEDS: hydrOXYzine HCL 25 MG TABLET PO ×2 (14:17→23:16)
[2022-03-14 15:25] VITALS: BP 119/55; PULSE 82; RESP 18; TEMP 37.4; O2SAT 93
[2022-03-14 16:00] VITALS: BP 119/55; PULSE 82; RESP 18; TEMP 37.4; O2SAT 93
[2022-03-14 16:03] LABS: Glucose, Whole Blood 164 mg/dL (60-115)
--- NOTE | 2022-03-14 16:12 | MHC.RECOVRN ---
Met with pt in 357 to follow up regarding methadone and substance use. Upon entering pts room, pt under blankets, asleep but easily awoken. Pt difficult to engage in conversation, answering most questions with one word. When asked how pt is feeling, pts only response is agitated. Pt reports using heroin, 1 bundle daily IV. Pt denies other substance to t/w. Pt would like to continue methadone titration and connect to an OTP. Pt has copy of ID in belongings with security. Pt denies having been to an OTP in the past. Pt reporting withdrawal symptoms including agitation, anxiety, lack of appetite. Pt appears diaphoretic. Pt would like to have referrals placed to [facility] facilities all over [place]. Pt is from [place] and trying to get closer to her child in [place]. T/w will send referrals. Pt denies questions or concerns at this time. Discussed with Annelise Rivera APRN. Will continue to follow.
--- NOTE | 2022-03-14 16:13 | MHC.CM.PN ---
Met with patient regarding DC planning. She reports she is currently homeless, staying in the [facility] in [place]. She is interested in recovery and wants to go to [facility] in [place] when discharged. Provided patient with intake phone number ([phone]) to call for a bed closer to dc date. Educated patient about HCP, she states she would chose her sister, Amos a HCP, but wants to think about it further before completing a form. Mayank continue to follow
[2022-03-14] MEDS: Acetaminophen 325 MG TABLET 650 MG PO (16:23)
[2022-03-14 19:04] LABS: Vancomycin Trough 6.8 mcg/mL (10.0-20.0)
--- NOTE | 2022-03-14 19:23 | PC.NURSE ---
Nursing and case management made attempt to have [facility] fax records r/t recent tx and I&D, but the fax never came. Release form was sent to them, followed with phone calls, but nothing came.
--- NOTE | 2022-03-14 19:24 | HE.PHANOTE ---
Vanco increased to 1500 mg q12h for the next 2 doses, random trough to be drawn 03/15/22 @1800. Expected AUC range to be around 473-531 trough 9.9- 12.2.
[2022-03-14 19:39] LABS: Appearance Urine CLEAR; Color Urine YELLOW; Glucose Urine UA NEG (NEG); Leukocyte Esterase Urine NEG (NEG); Nitrite Urine NEG (NEG); Specific Gravity - Urine <= 1.005 (1.005-1.025); Urine Blood NEG (NEG); Urine Ketones NEG (NEG); Urine Protein NEG (NEG-TRACE)
[2022-03-14 19:47] LABS: Amphetamine Screen Urine Not Detected (Not Detect); Barbiturates, Urine Not Detected (Not Detect); Benzodiazepines Screen Urine Not Detected (Not Detect); Cannabinoid Screen Urine Not Detected (Not Detect); Cocaine Screen Urine Not Detected (Not Detect); Fentanyl, urine POSITIVE (Not Detect); Opiate Screen Urine POSITIVE (Not Detect); Phencyclidine Screen Urine Not Detected (Not Detect)
[2022-03-14 20:00] VITALS: BP 122/59; PULSE 76; RESP 18; TEMP 36.3; O2SAT 95
[2022-03-14 20:40] LABS: Glucose, Whole Blood 123 mg/dL (60-115)
[2022-03-14] MEDS: vancomycin HCL 1,500 MG in 0.9 % Sodium Chloride 500 ML 250 MG IV (20:56)
[2022-03-14] MEDS: Sennosides 8.6 MG TABLET 17.2 MG PO (20:58)
[2022-03-14 23:31] VITALS: BP 135/63; PULSE 82; RESP 17; TEMP 37.2; O2SAT 95
[2022-03-15 03:36] VITALS: BP 129/58; PULSE 84; RESP 17; TEMP 36.3; O2SAT 95
[2022-03-15] MEDS: Acetaminophen 325 MG TABLET 650 MG PO (03:39)
[2022-03-15] MEDS: oxyCODONE HCl Immed Release 5 MG TABLET PO ×4 (03:39→20:56)
[2022-03-15] MEDS: Ampicillin Sodium/Sulbactam Na 3 GM in 0.9 % Sodium Chloride 100 ML IV ×4 (03:41→21:38)
[2022-03-15] MEDS: Omeprazole 20 MG CAPSULE.DR PO (05:37)
[2022-03-15 06:29] LABS: Hemoglobin 7.7 g/dl (12.0-16.0); Mean Corpuscular HGB Conc 33.5 g/dl (31.0-35.0); Mean Corpuscular Hemoglobin 29.8 pg (27.0-33.0); Mean Corpuscular Volume 89.1 fL (80.0-98.0); Mean Platelet Volume 8.9 fL (9.4-12.3); Platelet Count 151 X10*3/uL (160-400); Red Blood Count 2.58 X10*6/uL (4.20-5.50); Red Cell Distribution Width 13.7 % (11.0-16.0); White Blood Count 9.5 X10*3/uL (4.8-10.8)
[2022-03-15 07:08] VITALS: BP 116/59; PULSE 64; RESP 18; TEMP 36.6; O2SAT 95
[2022-03-15 07:15] LABS: Alanine Aminotransferase 34 U/L (0-31); Albumin Level 2.7 g/dL (3.5-5.0); Alkaline Phosphatase 197 U/L (39-117); Anion Gap 10 (12-20); Aspartate Amino Transferase 26 U/L (5-31); Bilirubin Total 0.4 mg/dL (0.0-1.0); Blood Urea Nitrogen 8 mg/dL (9-16); Calcium 8.1 mg/dL (8.4-10.2); Carbon Dioxide 25 mmol/L (22-29); Chloride 106 mmol/L (96-108); Creatinine Clr Calc Pharmacy 101.4; Estimated Glomerular Filt Rate > 60; Glucose Random 114 mg/dL (60-115); Potassium 3.2 mmol/L (3.3-5.1); Sodium 138 mmol/L (135-145); Total Protein 5.8 g/dL (6.5-8.0)
[2022-03-15 07:22] LABS: Glucose, Whole Blood 111 mg/dL (60-115)
[2022-03-15] MEDS: methADONE HCl 20 MG/2 ML ORAL.CONC 30 MG PO (08:06)
[2022-03-15] MEDS: Ferrous Sulfate 324 MG TABLET.DR PO (08:06)
[2022-03-15] MEDS: ARIPiprazole 30 MG TABLET PO (08:06)
[2022-03-15] MEDS: Insulin Glargine,Hum.rec.anlog 100 UNIT/ML 10 ML VIAL 15 UNIT SUBCUT (08:07)
[2022-03-15] MEDS: vancomycin HCL 1,500 MG in 0.9 % Sodium Chloride 500 ML 333.33 MG IV ×2 (08:08→19:54)
[2022-03-15] MEDS: Nicotine 21 MG PATCH.TD24 TRANSDERMA (08:09)
--- NOTE | 2022-03-15 08:19 | HE.PHANOTE ---
Vancomycin Dosing Addedum Patient has trough due 03/15 @1800. Patients renal function consistent with previous labs. Continue current regimen. Predicted AUC 556 mg/L/hr
[2022-03-15] MEDS: hydrOXYzine HCL 25 MG TABLET PO ×2 (10:25→20:03)
[2022-03-15 11:14] VITALS: BP 132/66; PULSE 70; RESP 18; TEMP 37.2; O2SAT 96
[2022-03-15 11:30] LABS: Glucose, Whole Blood 149 mg/dL (60-115)
[2022-03-15] MEDS: Enoxaparin Sodium 40 MG/0.4 ML SYRINGE SUBCUT (12:01)
[2022-03-15] MEDS: Lactated Ringers 1,000 ML 100 ML IVCONT (12:34)
--- NOTE | 2022-03-15 13:07 | HO.PM.IMPN ---
Subjective Subjective Date of Service: 03/15/22 Interval History: Seen and examined this morning Not feeling well, reports cough Reporting sweats, no chills Denies rectal bleeding Review of Systems Review of Systems: Yes all other systems are reviewed and are negative Constitutional Constitutional: Denies chills, Denies fever(s) and Reports night sweats Cardiovascular Cardiovascular: Reports dyspnea Respiratory Respiratory: Reports cough and Reports dyspnea Gastrointestinal Gastrointestinal: Denies abdominal pain Physical Exam Vital Signs: Vital Signs: Last Vital Signs Temp 98.9 F 03/15/22 11:14 Pulse 70 03/15/22 11:14 Resp 18 03/15/22 11:14 BP 132/66 03/15/22 11:14 Pulse Ox 96 03/15/22 11:14 O2 Del Method 03/15/22 11:14 O2 Flow Rate 2 03/15/22 11:14 Oxygen Flow Rate 6 03/12/22 21:30 BMI result Body Mass Index 27.4 Const: Other: General-resting in bed comfortable, no acute distress, awake, alert, oriented x3 Cardiovascular regular rate, normal S1/S2 Pulmonary-breathing nonlabored, no accessory muscle use, lungs clear GI-abdomen soft, nontender, nondistended Extremities-status post bilateral upper extremity I and D-11 sutures present left upper arm, 5 sutures present right arm No pedal edema Neuro-grossly nonfocal, moving all 4 extremities spontaneously Objective Data Active Medications Acetaminophen (Acetaminophen 325 Mg Tablet) 650 mg PO Q6H PRN PRN Reason: Pain, Mild (Pain Scale 1-3) Last Admin: 03/15/22 03:39 Dose: 650 mg Documented By: RUBY Aripiprazole (Aripiprazole 30 Mg Tablet) 30 mg PO DAILY [facility] Last Admin: 03/15/22 08:06 Dose: 30 mg Documented By: KONSTANTIN Dextrose (Dextrose 50 % 25 Gm/50 Ml Syringe) 25 gm IVPUSH Q15M PRN; Protocol PRN Reason: per Hypoglycemia Standing Ord. Enoxaparin Sodium (Enoxaparin Sodium 40 Mg/0.4 Ml Syringe) 40 mg SUBCUT Q24H [facility] Last Admin: 03/15/22 12:01 Dose: 40 mg Documented By: KONSTANTIN Ferrous Sulfate (Ferrous Sulfate 324 Mg Tablet.) 324 mg PO DAILY [facility] Last Admin: 03/15/22 08:06 Dose: 324 mg Documented By: KONSTANTIN Glucose (Glucose Gel 15 Gm Gel..Gram.) 15 gm PO Q15M PRN; Protocol PRN Reason: per Hypoglycemia Standing Ord. Hydroxyzine HCl (Hydroxyzine Hcl 25 Mg Tablet) 25 mg PO Q8H PRN PRN Reason: anxiety/restlessness Last Admin: 03/15/22 10:25 Dose: 25 mg Documented By: KONSTANTIN Ampicillin Sodium/Sulbactam (Sodium 3 gm/ Sodium Chloride) 100 mls @ 200 mls/hr IV Q6H [facility] Last Infusion: 03/15/22 11:24 Dose: 0 mls/hr Documented By: KONSTANTIN Lactated Ringer's (Lr) 1,000 mls @ 100 mls/hr IVCONT .Q10H [facility] Last Admin: 03/15/22 12:34 Dose: 100 mls/hr Documented By: KONSTANTIN Vancomycin HCl 1,500 mg/ (Sodium Chloride) 500 mls @ 333.333 mls/hr IV Q12H [facility] Last Infusion: 03/15/22 10:09 Dose: 0 mls/hr Documented By: KONSTANTIN Insulin Glargine (Insulin Glargine,Hum.Rec.Anlog 100 Unit/Ml 10 Ml Vial) 15 unit SUBCUT DAILY [facility] Last Admin: 03/15/22 08:07 Dose: 15 unit Documented By: KONSTANTIN Insulin Human Lispro (Insulin Lispro 100 Unit/Ml 3 Ml Vial) 0 unit SUBCUT QIDACHS [facility]; Protocol Last Admin: 03/15/22 12:01 Dose: Not Given Documented By: KONSTANTIN Non-Admin Reason: No Insulin Coverage Methadone HCl (Methadone Hcl 20 Mg/2 Ml Oral.Conc) 30 mg PO DAILY [facility] Last Admin: 03/15/22 08:06 Dose: 30 mg Documented By: KONSTANTIN Nicotine (Nicotine 21 Mg Patch.Td24) 21 mg TRANSDERMA DAILY [facility] Last Admin: 03/15/22 08:09 Dose: 21 mg Documented By: KONSTANTIN Nicotine Polacrilex (Nicotine Polacrilex 2 Mg Gum) 2 mg BUCCAL Q2H PRN PRN Reason: Smoking Cessation Omeprazole (Omeprazole 20 Mg Capsule.Dr) 20 mg PO DAILY@0630 [facility] Last Admin: 03/15/22 05:37 Dose: 20 mg Documented By: RUBY Ondansetron HCl (Ondansetron Hcl 4 Mg/2 Ml Vial) 4 mg IVPUSH Q8H PRN PRN Reason: Nausea and Vomiting Oxycodone HCl (Oxycodone Hcl Immed Release 5 Mg Tablet) 5 mg PO Q4H PRN PRN Reason: moderate pain Last Admin: 03/15/22 08:07 Dose: 5 mg Documented By: KONSTANTIN Pharmacy Consult (Consult Rx Vancomycin Dosing) 1 each MISCELLANE DAILY PRN PRN Reason: Consult order Pharmacy Consult (Consult Rx Perform Med Rec) 1 each MISCELLANE ONCE PRN PRN Reason: Consult order Pharmacy Consult (Consult Rx Vancomycin Dosing) 1 each MISCELLANE DAILY [facility] Senna (Sennosides 8.6 Mg Tablet) 17.2 mg PO BEDTIME [facility] Last Admin: 03/14/22 20:58 Dose: 17.2 mg Documented By: RUBY Sodium Chloride (0.9 % Sodium Chloride Flush 3 Ml Syringe) 3 ml IVFLUSH QSHIFT [facility] Last Admin: 03/15/22 08:10 Dose: Not Given Documented By: KONSTANTIN Non-Admin Reason: IV Running Labs CBC & Chem 7: 03/15/22 05:40 03/15/22 05:40 Labs: Laboratory Results - last 24 hr 03/14/22 03/14/22 03/14/22 15:32 18:14 18:20 MCV MCH MCHC RDW Plt Count MPV Absolute Nucleated RBC Nucleated RBC % (auto) Anion Gap Estim Creat Clear Calc Estimated GFR POC Glucose 164 H Random Glucose Calcium Total Bilirubin AST ALT Alkaline Phosphatase Total Protein Albumin Urine Color YELLOW Urine Appearance CLEAR Urine pH 6.0 Ur Specific [place] <= 1.005 Urine Protein NEG Urine Glucose (UA) NEG Urine Ketones NEG Urine Blood NEG Urine Nitrite NEG Ur Leukocyte Esterase NEG Vancomycin Trough 6.8 L Urine Opiates Screen Urine Fentanyl Screen Ur Barbiturates Screen Ur Phencyclidine Scrn Ur Amphetamines Screen U Benzodiazepines Scrn Urine Cocaine Screen U Marijuana (THC) Screen 03/14/22 03/14/22 03/15/22 18:20 20:31 05:40 MCV MCH MCHC RDW Plt Count MPV Absolute Nucleated RBC Nucleated RBC % (auto) Anion Gap 10 L Estim Creat Clear Calc 101.4 Estimated GFR > 60 POC Glucose 123 H Random Glucose 114 Calcium 8.1 L Total Bilirubin 0.4 AST 26 D ALT 34 H Alkaline Phosphatase 197 H Total Protein 5.8 L Albumin 2.7 L Urine Color Urine Appearance Urine pH Ur Specific [place] Urine Protein Urine Glucose (UA) Urine Ketones Urine Blood Urine Nitrite Ur Leukocyte Esterase Vancomycin Trough Urine Opiates Screen POSITIVE H Urine Fentanyl Screen POSITIVE H Ur Barbiturates Screen Not Detected Ur Phencyclidine Scrn Not Detected Ur Amphetamines Screen Not Detected U Benzodiazepines Scrn Not Detected Urine Cocaine Screen Not Detected U Marijuana (THC) Screen Not Detected 03/15/22 03/15/22 03/15/22 05:40 07:11 11:18 MCV 89.1 MCH 29.8 MCHC 33.5 RDW 13.7 Plt Count 151 L MPV 8.9 L Absolute Nucleated RBC 0.000 Nucleated RBC % (auto) 0.0 Anion Gap Estim Creat Clear Calc Estimated GFR POC Glucose 111 149 H Random Glucose Calcium Total Bilirubin AST ALT Alkaline Phosphatase Total Protein Albumin Urine Color Urine Appearance Urine pH Ur Specific [place] Urine Protein Urine Glucose (UA) Urine Ketones Urine Blood Urine Nitrite Ur Leukocyte Esterase Vancomycin Trough Urine Opiates Screen Urine Fentanyl Screen Ur Barbiturates Screen Ur Phencyclidine Scrn Ur Amphetamines Screen U Benzodiazepines Scrn Urine Cocaine Screen U Marijuana (THC) Screen Microbiology Microbiology Results: Microbiology 03/13/22 07:36 Blood Culture - Preliminary Blood - Venous No growth after 48 hours. 03/13/22 07:36 Blood Culture - Preliminary Blood - Venous No growth after 48 hours. Assessment and Plan (1) Opioid use disorder: Status: Acute (2) Aspiration pneumonia: Status: Acute Plan hospital d#2 61yo F with opioid use disorder, insulin-dependent DM2, and bipolar depression came to the ED 2x on 03/12/22 for opioid overdose and on the 2nd visit, developed severe sepsis and was found to have aspiration PNA # severe sepsis # aspiration pneumonia - continue ABX- on d#3 of vancomycin + ampicillin/sulbactam, follow BCx, trend PCT # b/l upper extremity cellulitis s/p bilateral upper extremity I&D at [facility] - continue vancomycin d#3, request records from [facility] re: I+D - wound culture MRSA/mixed organisms - seem like I and D from end of January, sutures likely ready to be removed, will consult General surgery+ -blood cultures negative # HCV Ab positive - viral load pending # iron def anemia H/H from 03/04 at [facility] 8.5/25.1 - start PO repletion, check FOBT # opioid use disorder - Addiction Medicine consulted, started on methadone # DM2 - basal/bolus insulin, A1c 8.8 # mood disorder - continue aripiprazole # tobacco dependence Smoking cessation advised - NRT # VTE ppx - LMWH # dispo - requests inpt substance rehab Attending-Dr. Norton In my clinical judgment, the patient requires continued hospitalization for the following reasons: IV ABX Quality Stroke Does the patient have a stroke diagnosis?: No VTE Prior VTE?: No VTE Risk Level:: Medical - moderate - high VTE Device Contraindication: N/A - Device Ordered VTE Drug Contraindication: N/A - Med Ordered
[2022-03-15] MEDS: Potassium Chloride ER 20 MEQ TAB.ER.PRT 40 MEQ PO (13:39)
--- NOTE | 2022-03-15 13:56 | MHC.RECOVRN ---
Met with pt to follow up regarding methadone titration and discharge planning. Pt in bed, asleep but easily awoken. Pt appears less uncomfortable than previous encounters, still slightly diaphoretic. Pt becoming easier to engage in conversation. Pt states I'm really sick. I have to be on oxygen and I'm getting antibiotics all day every day. Pt does have copy of ID in wallet (drivers license from [place]), this was provided to pt. Pt reports having been in [place] for 4 months and would like to continue with [facility] bedsearch. However, pt will only go to a [facility] if smoking is allowed. Pt educated on [facility] policies and the likelihood of finding a smoking facility. Regardless, referrals were sent to [facility], [facility], [facility], [place], [facility] and [place]. [facility] declined pt due to being too medically complex. Discussed with Annelise Rivera APRN. Will continue to follow.
--- NOTE | 2022-03-15 14:44 | PM.CNGS ---
History of Present Illness Consult details Consult date: 03/15/22 Narrative: 61-year-old female patient currently admitted to the hospitalist service for overdose with history of diabetes mellitus. She previously underwent bilateral arm incision and drainage procedures performed at [facility] approximately 2 weeks ago. Surgical consultation is requested for suture removal. She reports no significant drainage from either of the wounds. She does not remember the name of the surgeon at [facility]. Review of Systems Review of Systems: Yes all other systems are reviewed and are negative Musculoskeletal: Musculoskeletal: Reports myalgias and Reports arthralgias Integumentary/Breasts: Skin/Breast: Reports as per [facility] Past Medical History Medical History (Updated 03/15/22 @ 15:35 by Holland Sellers MD) Diabetes mellitus Family History Family History Mother Diabetes Sister Diabetes Surgical History Surgical History (Updated 03/15/22 @ 15:35 by Holland Sellers MD) History of incision and drainage Social History Social History Household Members: None Housing: Homeless Do you presently have visiting nurse or other home services: No Alcohol intake: current Alcohol intake frequency: holidays/special occasions only Patient Tobacco Use Status: Current everyday Tobacco user Tobacco use type: Cigarette Cigarette Packs Per Day: 1 Cigarettes Per Day: 20.0 Substance Use Type: Heroin and IV Drugs service: No Current occupational status: unemployed Meds Allergies Allergy/AdvReac Type Severity Reaction Status Date / Time No Known Allergies Allergy Verified 03/12/22 21:30 Active Medications: Current Medications Acetaminophen (Acetaminophen 325 Mg Tablet) 650 mg PO Q6H PRN PRN Reason: Pain, Mild (Pain Scale 1-3) Last Admin: 03/15/22 03:39 Dose: 650 mg Aripiprazole (Aripiprazole 30 Mg Tablet) 30 mg PO DAILY [facility] Last Admin: 03/15/22 08:06 Dose: 30 mg Dextrose (Dextrose 50 % 25 Gm/50 Ml Syringe) 25 gm IVPUSH Q15M PRN; Protocol PRN Reason: per Hypoglycemia Standing Ord. Enoxaparin Sodium (Enoxaparin Sodium 40 Mg/0.4 Ml Syringe) 40 mg SUBCUT Q24H [facility] Last Admin: 03/15/22 12:01 Dose: 40 mg Ferrous Sulfate (Ferrous Sulfate 324 Mg Tablet.Dr) 324 mg PO DAILY [facility] Last Admin: 03/15/22 08:06 Dose: 324 mg Glucose (Glucose Gel 15 Gm Gel..Gram.) 15 gm PO Q15M PRN; Protocol PRN Reason: per Hypoglycemia Standing Ord. Hydroxyzine HCl (Hydroxyzine Hcl 25 Mg Tablet) 25 mg PO Q8H PRN PRN Reason: anxiety/restlessness Last Admin: 03/15/22 10:25 Dose: 25 mg Ampicillin Sodium/Sulbactam (Sodium 3 gm/ Sodium Chloride) 100 mls @ 200 mls/hr IV Q6H [facility] Last Infusion: 03/15/22 11:24 Dose: Infused Vancomycin HCl 1,500 mg/ (Sodium Chloride) 500 mls @ 333.333 mls/hr IV Q12H [facility] Last Infusion: 03/15/22 10:09 Dose: Infused Insulin Glargine (Insulin Glargine,Hum.Rec.Anlog 100 Unit/Ml 10 Ml Vial) 15 unit SUBCUT DAILY [facility] Last Admin: 03/15/22 08:07 Dose: 15 unit Insulin Human Lispro (Insulin Lispro 100 Unit/Ml 3 Ml Vial) 0 unit SUBCUT QIDACHS [facility]; Protocol Last Admin: 03/15/22 12:01 Dose: Not Given Methadone HCl (Methadone Hcl 20 Mg/2 Ml Oral.Conc) 30 mg PO DAILY [facility] Last Admin: 03/15/22 08:06 Dose: 30 mg Nicotine (Nicotine 21 Mg Patch.Td24) 21 mg TRANSDERMA DAILY [facility] Last Admin: 03/15/22 08:09 Dose: 21 mg Nicotine Polacrilex (Nicotine Polacrilex 2 Mg Gum) 2 mg BUCCAL Q2H PRN PRN Reason: Smoking Cessation Omeprazole (Omeprazole 20 Mg Capsule.Dr) 20 mg PO DAILY@0630 [facility] Last Admin: 03/15/22 05:37 Dose: 20 mg Ondansetron HCl (Ondansetron Hcl 4 Mg/2 Ml Vial) 4 mg IVPUSH Q8H PRN PRN Reason: Nausea and Vomiting Oxycodone HCl (Oxycodone Hcl Immed Release 5 Mg Tablet) 5 mg PO Q4H PRN PRN Reason: moderate pain Last Admin: 03/15/22 08:07 Dose: 5 mg Pharmacy Consult (Consult Rx Vancomycin Dosing) 1 each MISCELLANE DAILY PRN PRN Reason: Consult order Pharmacy Consult (Consult Rx Perform Med Rec) 1 each MISCELLANE ONCE PRN PRN Reason: Consult order Pharmacy Consult (Consult Rx Vancomycin Dosing) 1 each MISCELLANE DAILY [facility] Senna (Sennosides 8.6 Mg Tablet) 17.2 mg PO BEDTIME [facility] Last Admin: 03/14/22 20:58 Dose: 17.2 mg Sodium Chloride (0.9 % Sodium Chloride Flush 3 Ml Syringe) 3 ml IVFLUSH QSHIFT [facility] Last Admin: 03/15/22 08:10 Dose: Not Given Home Medications Medication Instructions Recorded Confirmed Last Taken Type acetaminophen 325 mg tablet 650 mg PO Q6H PRN Mild Pain (Scale 03/13/22 03/13/22 Unknown History Score 1-4) aripiprazole 30 mg tablet 30 mg PO DAILY 03/13/22 03/13/22 Unknown History bisacodyl 5 mg tablet 5 mg PO ONCE PRN Constipation 03/13/22 03/13/22 Unknown History hydromorphone 4 mg tablet 4 mg PO Q6H PRN Pain 03/13/22 03/13/22 Unknown History hydroxyzine HCl 25 mg tablet 1 tab PO BEDTIME PRN anxiety 03/13/22 03/13/22 Unknown History insulin glargine 100 unit/mL 30 unit subcut DAILY 03/13/22 03/13/22 Unknown History subcutaneous solution (Lantus U-100 Insulin) lorazepam 0.5 mg tablet 1 tab PO TID PRN Anxiety 03/13/22 03/13/22 Unknown History nicotine (polacrilex) 2 mg gum 2 mg PO Q2H PRN Smoking Cessation 03/13/22 03/13/22 Unknown History nicotine 21 mg/24 hr daily 1 patch topical DAILY 03/13/22 03/13/22 Unknown History transdermal patch nystatin-triamcinolone 100,000 1 appl topical DAILY 03/13/22 03/13/22 Unknown History unit/g-0.1 % topical cream pantoprazole 20 mg tablet,delayed 20 mg PO DAILY 03/13/22 03/13/22 Unknown History release polyethylene glycol 3350 17 gram 17 g PO DAILY 03/13/22 03/13/22 Unknown History oral powder packet (Miralax) sennosides 8.6 mg tablet (senna) 17.2 mg PO BEDTIME 03/13/22 03/13/22 Unknown History zolpidem 5 mg tablet 5 mg PO BEDTIME PRN Sleep 03/13/22 03/13/22 Unknown History Physical Exam Vital Signs: Vital Signs: Last Vital Signs Temp 98.9 F 03/15/22 11:14 Pulse 70 03/15/22 11:14 Resp 18 03/15/22 11:14 BP 132/66 03/15/22 11:14 Pulse Ox 96 03/15/22 11:14 O2 Del Method 03/15/22 11:14 O2 Flow Rate 2 03/15/22 11:14 Oxygen Flow Rate 6 03/12/22 21:30 BMI result Body Mass Index 27.4 Const: General: no acute distress Nutritional Appearance: well nourished Orientation/consciousness: patient oriented x3 Resp: Effort & Inspection: normal respiratory effort, no audible wheezes, no cough and no respiratory distress GI: Inspection: Yes normal to inspection Skin: General skin exam: turgor normal and dry skin Lesions: no lesions Neuro: General: patient oriented x3 Extrem: Other: Bilateral antecubital incisions and right forearm incision noted closed with Prolene sutures. Wounds are clean, dry, and intact. Sutures removed incisions found to be well healed. Elbow/forearm/wrist images: 1. 2. 3. Results Labs Result diagrams: 03/15/22 05:40 03/15/22 05:40 Labs: Abnormal lab results 03/14/22 03/14/22 03/14/22 Range/Units 15:32 18:14 18:20 RBC (4.20-5.50) X10*6/uL Hgb (12.0-16.0) g/dl Hct (37.0-47.0) % Plt Count (160-400) X10*3/uL MPV (9.4-12.3) fL Potassium (3.3-5.1) mmol/L Anion Gap (12-20) BUN (9-16) mg/dL POC Glucose 164 H (60-115) mg/dL Calcium (8.4-10.2) mg/dL ALT (0-31) U/L Alkaline Phosphatase (39-117) U/L Total Protein (6.5-8.0) g/dL Albumin (3.5-5.0) g/dL Vancomycin Trough 6.8 L (10.0-20.0) mcg/mL Urine Opiates Screen POSITIVE H (Not Detect) Urine Fentanyl Screen POSITIVE H (Not Detect) 03/14/22 03/15/22 03/15/22 Range/Units 20:31 05:40 05:40 RBC 2.58 L (4.20-5.50) X10*6/uL Hgb 7.7 L (12.0-16.0) g/dl Hct 23.0 L (37.0-47.0) % Plt Count 151 L (160-400) X10*3/uL MPV 8.9 L (9.4-12.3) fL Potassium 3.2 L (3.3-5.1) mmol/L Anion Gap 10 L (12-20) BUN 8 L (9-16) mg/dL POC Glucose 123 H (60-115) mg/dL Calcium 8.1 L (8.4-10.2) mg/dL ALT 34 H (0-31) U/L Alkaline Phosphatase 197 H (39-117) U/L Total Protein 5.8 L (6.5-8.0) g/dL Albumin 2.7 L (3.5-5.0) g/dL Vancomycin Trough (10.0-20.0) mcg/mL Urine Opiates Screen (Not Detect) Urine Fentanyl Screen (Not Detect) 03/15/22 Range/Units 11:18 RBC (4.20-5.50) X10*6/uL Hgb (12.0-16.0) g/dl Hct (37.0-47.0) % Plt Count (160-400) X10*3/uL MPV (9.4-12.3) fL Potassium (3.3-5.1) mmol/L Anion Gap (12-20) BUN (9-16) mg/dL POC Glucose 149 H (60-115) mg/dL Calcium (8.4-10.2) mg/dL ALT (0-31) U/L Alkaline Phosphatase (39-117) U/L Total Protein (6.5-8.0) g/dL Albumin (3.5-5.0) g/dL Vancomycin Trough (10.0-20.0) mcg/mL Urine Opiates Screen (Not Detect) Urine Fentanyl Screen (Not Detect) Short CBC 03/15/22 Range/Units 05:40 WBC 9.5 (4.8-10.8) X10*3/uL Hgb 7.7 L (12.0-16.0) g/dl Hct 23.0 L (37.0-47.0) % Plt Count 151 L (160-400) X10*3/uL BMP 03/15/22 05:40 Sodium 138 Potassium 3.2 L Chloride 106 Carbon Dioxide 25 BUN 8 L Creatinine 0.67 Calcium 8.1 L Liver Function 03/15/22 Range/Units 05:40 Total Bilirubin 0.4 (0.0-1.0) mg/dL AST 26 D (5-31) U/L ALT 34 H (0-31) U/L Alkaline Phosphatase 197 H (39-117) U/L Albumin 2.7 L (3.5-5.0) g/dL Urine 03/14/22 Range/Units 18:20 Urine Color YELLOW Urine Appearance CLEAR Urine pH 6.0 (5.0-8.0) Ur Specific [place] <= 1.005 (1.005-1.025) Urine Protein NEG (NEG-TRACE) MG/DL Urine Glucose (UA) NEG (NEG) MG/DL All other labs normal. Assessment and Plan (1) Abscess of upper extremity: Status: Acute (2) History of incision and drainage: Plan Patient reports previous surgery in the upper extremities performed at [facility] approximately 2 weeks ago. Her wounds are clean, dry, and intact. Sutures removed in the incisions found to be well healed. There is no evidence of wound infection. No further surgical intervention is required at this time. Please re-consult for any new issues. Procedures Date of Service Date of Service: 03/15/22
--- NOTE | 2022-03-15 15:43 | MHC.CM.PN ---
NURSE ONLINE CONTENT DEVELOPER NOTE ELECTRONIC MEDICAL RECORD REVIEWED ALONG WITH CASE DISCUSSED WITH HOSPITLAIST AND STAFF NURSE . PATIENT WILL BE HAVING A THORACENTESIS TOMORROW 03/16/22 (ADMITTEING DX PER DOCUMENTSAITON ASPIRATION PNA HEROINE OVERDOSE AND GOING FOR BRONCHOSCOPY FOR REMOVAL OF MUSCUS PLUG) DISCHARGE PLAN 1. HOMELESS GIVEN PATIENT LIST OF SHLETERs , community supports for housing . foos , clothes , transportation staying in the [facility] in [facility]) she is interested in recovery support AND COMMUNITY SUPPORT ELECTRONIC MEDICAL RECORD REVIEWED ALONG WITH CASE DISCUSSED WITH HOSPITLAIST AND STAFF NURSE . PATIENT WILL BE HAVING A THORACENTESIS TOMORROW 03/16/22 (ADMITTEING DX PER DOCUMENTSAITON ASPIRATION PNA HEROINE OVERDOSE AND GOING FOR BRONCHOSCOPY FOR REMOVAL OF MUSCUS PLUG) DISCHARGE PLAN 1. HOMELESS GIVEN PATIENT LIST OF SHLETER 9staying in the [facility] in [facility]) she is interested in recovery support AND COMMUNITY SUPPORT HOUSING , FOOD, CLOTHING 2. NO HCP 3. NO PCP- list of [facility] physicans list given to her 4. OPIOD OVERDOSE NARCAN IN ER GIVEN , SEEN BY ADDICTION PHYSICIAN AND METHADONE PRESCRIBED 5. EVAL (03/13/22)))RECOVERY SUPPORT TEAM (HEROIN OVERDOSE, WITHDRAWL SX PATIENT SEEKING ATS DETOX AND SUPPORTS (PER DOCUMENTATION GIVEN COMMUNITY RESOURSCES nd support , harm reduction discussion , recomended folloow up with hfi after discharge 9PATIENT EXPRESSED INTERESTED IN GOING TO A SNF PROGRAM AFTER DISCHARGE FROM THE [facility] (03/14/22) 03/15/22 EVAL BY RECOVERY NURSE , REFERRALS INIATESD WITH [facility] ALL OVER [facility] ( 03/15/22 HAS COPY OF DRIVERS LICENSE [place] MAYELIN HAS BEEN IN [facility] FOR FOUR MONTHS, AND WOULD LIKE RECOVERY THEM TO CONTNUE BED SEARCH ALTERNATE REFERRALS WERE MADE WITH Jennifer, [facility], [facility] ) ONLINE CONTENT DEVELOPER TO CONTINUE TO FOLLOW
[2022-03-15 16:00] VITALS: BP 136/67; PULSE 77; RESP 18; TEMP 37.1; O2SAT 93
[2022-03-15 16:07] LABS: Glucose, Whole Blood 162 mg/dL (60-115)
--- NOTE | 2022-03-15 16:10 | MHC.CM.PN ---
NURSE HEALTH ASSESSMENT AND TREATMENT TEACHER NOTE ELECTRONIC MEDICAL RECORD REVIEWED ALONG WITH CASE DISCUSSED WITH HOSPITLAIST AND STAFF NURSE . PATIENT WILL BE HAVING A THORACENTESIS TOMORROW 03/16/22 (ADMITTEING DX PER DOCUMENTSAITON ASPIRATION PNA HEROINE OVERDOSE DISCHARGE PLAN 1. HOMELESS GIVEN PATIENT LIST OF SHLETERs , community supports for housing . foos , clothes , transportation staying in the [facility] in [facility]) she is interested in recovery support AND COMMUNITY SUPPORT DISCHARGE PLAN 1. HOMELESS GIVEN PATIENT LIST OF SHLETER 9staying in the [facility] in [facility]) she is interested in recovery support AND COMMUNITY SUPPORT HOUSING , FOOD, CLOTHING 2. NO HCP 3. NO PCP- [place] [facility] [place] given to her 4. OPIOD OVERDOSE NARCAN IN ER GIVEN , SEEN BY ADDICTION PHYSICIAN AND METHADONE PRESCRIBED 5. EVAL (03/13/22)))RECOVERY SUPPORT TEAM (HEROIN OVERDOSE, WITHDRAWL SX PATIENT SEEKING ATS DETOX AND SUPPORTS (PER DOCUMENTATION GIVEN COMMUNITY RESOURSCES nd support , harm reduction discussion , recomended folloow up with hfi after discharge 9PATIENT EXPRESSED INTERESTED IN GOING TO A JAIL PROGRAM AFTER [facility]GE [facility] (03/14/22) 03/15/22 EVAL BY RECOVERY NURSE , REFERRALS INIATESD WITH [facility]AC[facility]IT[facility] ( 03/15/22 HAS COPY OF DRIVERS LICENSE [place] MAYELIN HAS BEEN IN [facility] FOR FOUR MONTHS, AND WOULD LIKE RECOVERY THEM TO CONTNUE BED SEARCH ALTERNATE REFERRALS WERE MADE WITH Jennifer, [facility] AND [place] BY RECVERY NURSE )
[2022-03-15] MEDS: Insulin Lispro 100 UNIT/ML 3 ML VIAL SUBCUT ×2 (16:28→20:56)
[2022-03-15] MEDS: 0.9 % Sodium Chloride Flush 3 ML SYRINGE IVFLUSH ×2 (16:28→20:57)
[2022-03-15] MEDS: Nicotine Polacrilex 2 MG GUM BUCCAL ×2 (16:39→21:01)
[2022-03-15 18:13] LABS: Vancomycin Random 12.7 mcg/mL (15-20)
--- NOTE | 2022-03-15 18:30 | HE.PHANOTE ---
Patient trough 12.7, auc 464, cont dose, next trough 03/16 @1800
[2022-03-15 20:00] VITALS: BP 133/63; PULSE 69; RESP 18; TEMP 36.7; O2SAT 93
[2022-03-15 20:35] LABS: Glucose, Whole Blood 153 mg/dL (60-115)
[2022-03-15 23:10] LABS: CDiff Gene PCR NEGATIVE (Negative)
[2022-03-15 23:42] VITALS: BP 121/60; PULSE 60; RESP 18; TEMP 37.9; O2SAT 97
[2022-03-16] MEDS: oxyCODONE HCl Immed Release 5 MG TABLET PO ×4 (01:23→22:14)
[2022-03-16] MEDS: Nicotine Polacrilex 2 MG GUM BUCCAL ×4 (01:27→20:47)
[2022-03-16 03:35] VITALS: BP 120/65; PULSE 68; RESP 18; TEMP 37.7; O2SAT 98
[2022-03-16] MEDS: Ampicillin Sodium/Sulbactam Na 3 GM in 0.9 % Sodium Chloride 100 ML IV ×4 (03:54→22:18)
[2022-03-16] MEDS: Omeprazole 20 MG CAPSULE.DR PO (05:48)
[2022-03-16] MEDS: hydrOXYzine HCL 25 MG TABLET PO ×2 (05:49→17:13)
[2022-03-16] MEDS: Loperamide HCl 2 MG CAPSULE 4 MG PO ×2 (05:57→20:47)
[2022-03-16] MEDS: Acetaminophen 325 MG TABLET 650 MG PO ×2 (06:00→22:14)
[2022-03-16 07:08] LABS: Hematocrit 23.5 % (37.0-47.0); Hemoglobin 7.8 g/dl (12.0-16.0); Mean Corpuscular HGB Conc 33.2 g/dl (31.0-35.0); Mean Corpuscular Hemoglobin 29.4 pg (27.0-33.0); Mean Corpuscular Volume 88.7 fL (80.0-98.0); Platelet Count 156 X10*3/uL (160-400); Red Blood Count 2.65 X10*6/uL (4.20-5.50); Red Cell Distribution Width 13.4 % (11.0-16.0); White Blood Count 7.4 X10*3/uL (4.8-10.8)
--- NOTE | 2022-03-16 07:26 | MHC.CM.PN ---
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 DMITT WITH ADMITT WITH ASP PNA AND HEROIN /OD DISCHARGE PLAN 1. HOMELESS GIVEN PATIENT LIST OF SHLETERs , community supports for housing . foos , clothes , transportation staying in the rae in [facility]) she is interested in recovery support AND COMMUNITY SUPPORT DISCHARGE PLAN 1. HOMELESS GIVEN PATIENT LIST OF SHLETER 9staying in the rae in [facility]) she is interested in recovery support AND COMMUNITY SUPPORT HOUSING , FOOD, CLOTHING 2. NO HCP 3. NO PCP- list of [facility] list given to her 4. OPIOD OVERDOSE NARCAN IN ER GIVEN , SEEN BY ADDICTION PHYSICIAN AND METHADONE PRESCRIBED 5. EVAL (03/13/22)))RECOVERY SUPPORT TEAM (HEROIN OVERDOSE, WITHDRAWL SX PATIENT SEEKING ATS DETOX AND SUPPORTS (PER DOCUMENTATION GIVEN COMMUNITY RESOURSCES nd support , harm reduction discussion , recomended folloow up with hfi after discharge 9PATIENT EXPRESSED INTERESTED IN GOING TO A ICE SKATING TEACHER PROGRAM AFTER DISCHARGE FROM THE [facility]OSPITLAI (03/14/22) 03/15/22 EVAL BY RECOVERY NURSE , REFERRALS [facility] WITH [facility] ALL OVER [facility] ( 03/15/22 HAS COPY OF DRIVERS LICENSE [facility] Christian DICK HAS BEEN IN [facility] FOR FOUR MONTHS, AND WOULD LIKE RECOVERY THEM TO CONTNUE BED SEARCH ALTERNATE REFERRALS WERE MADE WITH Jennifer, [facility], [facility] BY RECVERY NURSE ) Initialized on 03/15/22 16:10 - END OF NOTE
[2022-03-16 07:33] VITALS: BP 128/65; PULSE 67; RESP 17; TEMP 37.2; O2SAT 97
[2022-03-16 07:40] LABS: Anion Gap 12 (12-20); Blood Urea Nitrogen 5 mg/dL (9-16); Carbon Dioxide 26 mmol/L (22-29); Chloride 104 mmol/L (96-108); Creatinine Clr Calc Pharmacy 109.7; Estimated Glomerular Filt Rate > 60; Glucose Random 86 mg/dL (60-115); Potassium 3.6 mmol/L (3.3-5.1); Sodium 138 mmol/L (135-145)
[2022-03-16 07:55] LABS: Glucose, Whole Blood 80 mg/dL (60-115)
[2022-03-16] MEDS: Ferrous Sulfate 324 MG TABLET.DR PO (08:35)
[2022-03-16] MEDS: ARIPiprazole 30 MG TABLET PO (08:35)
[2022-03-16] MEDS: Nicotine 21 MG PATCH.TD24 TRANSDERMA (08:35)
[2022-03-16] MEDS: methADONE HCl 20 MG/2 ML ORAL.CONC 35 MG PO (08:35)
[2022-03-16] MEDS: vancomycin HCL 1,500 MG in 0.9 % Sodium Chloride 500 ML 333.33 MG IV (08:36)
[2022-03-16] MEDS: 0.9 % Sodium Chloride Flush 3 ML SYRINGE IVFLUSH ×3 (08:45→20:46)
[2022-03-16 08:56] LABS: Procalcitonin 7.04 ng/mL
--- NOTE | 2022-03-16 10:38 | MHC.RECOVRN ---
Pts referral sent to [facility] in [place] as pt plans to discharge to [facility]. Pt all set to present to the OTP in the morning. Pt provided with last dose letter, community resources, as well as contact information for CSS referrals.
--- NOTE | 2022-03-16 11:49 | P.DS_ITS ---
DS: Providers Provider Date of Service: 03/17/22 Date of admission: 03/13/22 11:52 Date of discharge: 03/17/22 Primary care physician: Vicky Hanna MD Consults: 03/12/22 21:45 Consult to Care Team Stat Comment: Reason for consultation: SUDE evaluation 03/13/22 09:40 Addiction Medicine Routine Consulting Provider: Annelise Rivera Reason for consultation: heroin OD/2 Consult to Care Team Routine Comment: Reason for consultation: heroin OD x2 03/15/22 13:05 Consult to General Surgery Routine Consulting Provider: Holland Sellers Reason for consultation: s/p bl UE I&D outside hospital;?suture removal Has provider been notified: No Attending physician on discharge: Mehrdad Seo Discharging clinician: Merlene Zuñiga DS: Diagnosis Discharge Diagnosis (1) Abscess of upper extremity: Status: Acute (2) Aspiration pneumonia: Status: Acute DS: Summary Hospital Course Hospital Course: From H&P on day of admission 61yo F with opioid use disorder, insulin-dependent DM2, and bipolar depression came to the ED 2x yesterday for opioid overdose.? The 1st time she was found unresponsive by EMS saturating 87% on room air and required 4 mg of IN naloxone.? She was hyperglycemic and got 14 units of Humalog.? She signed out against medical advice and then returned via EMS, requiring 12 mg of IN naloxone and BVM ventilation by EMS.? She was noted to have bilateral forearm incisions from recent I+D [she is unsure when] at [facility].? This time she agreed to stay.? She then developed tachypnea and tachycardia and low-grade fever of 100.2. CXR was negative, but CT chest showed bibasilar pneumonia thought to represent aspiration.? She was given vancomycin and ceftriaxone.? BP was 91/36 taken in the legs due to the upper arm incisions. ? Lactate was 6.4 and she was given 30 cc/kg of normal saline.? She was also given a dose of metronidazole.? This time, she agrees to stay in the hospital.? Records from [facility] were requested and are pending. She denies cough, dyspnea, chest pain, palpitations, nausea, vomiting, or abdominal pain. Aspiration pneumonia. Patient was treated with Unasyn. Her leukocytosis resolved and her breathing has improved. She will be discharged home to complete course of Augmentin. Blood cultures from March 13 have remained negative to date. Purulent cellulitis. Patient initially underwent incision and drainage at [facility]. She was started on vancomycin to cover for MRSA. Cellulitis has resolved and wounds are healing well. She had sutures removed on 03/15. She will be discharged home to complete course of doxycycline. Polysubstance abuse. Patient was seen in consultation by the addiction medicine team. She was started on methadone. Her last dose was 03/17. Plans to discharge to were then to [facility] and referral sent to [facility] in [place] with plans to present to the OTP in the morning. She has been given the [facility] referrals and community resource information. Hypokalemia. Resolved with replacement. Anemia. Iron studies consistent with mixed picture. Component of iron deficiency and chronic inflammation. No overt bleeding noted. Has been started on iron supplementation. Recommend good nutrition, outpatient follow-up to monitor CBC. HCV ab positive. Hep C viral load was checked and is pending at the time of discharge. Recommend outpatient follow up with GI. Diabetes. Dose of Lantus has been decreased to 15 units daily. Recommend checking blood sugar before meals and at bedtime. Follow-up with PCP for close blood sugar monitoring and medication adjustment as needed Time Spent with Patient Time attestation: Total time spent providing and/or coordinating discharge services: Discharge coordination time: Greater than 30 minutes Quality: Safe Use of Opioids Does Pt have an Active Cancer Diagnosis on the Problem List?: No Quality: Stroke Does the patient have a stroke diagnosis?: No Physical Exam Vital Signs: Vital Signs: Last Vital Signs Temp 98.9 F 03/16/22 07:33 Pulse 67 03/16/22 07:33 Resp 17 03/16/22 07:33 BP 128/65 03/16/22 07:33 Pulse Ox 97 03/16/22 07:33 O2 Del Method 03/16/22 07:33 O2 Flow Rate 2 03/16/22 07:33 Oxygen Flow Rate 6 03/12/22 21:30 BMI result Body Mass Index 27.4 Const: General: cooperative, comfortable, no acute distress, alert and awake Nutritional Appearance: average body habitus Orientation/consciousness: pa tient oriented x3 Resp: Effort & Inspection: normal respiratory effort and able to speak in complete sentences Auscultation: clear to auscultation bilaterally Cardio: Rate: regular rate Heart sounds: S1 normal heart sound present and S2 normal heart sound present GI: Palpation (GI): Soft to palpation and nontender Neuro: General: patient oriented x3 Extrem: General: Yes no pedal edema DS: Data Data Completed and Pending Labs on day of discharge: Laboratory Results - last 24 hr 03/15/22 03/15/22 03/15/22 15:59 17:38 20:10 WBC RBC Hgb Hct MCV MCH MCHC RDW Plt Count MPV Absolute Nucleated RBC Nucleated RBC % (auto) Sodium Potassium Chloride Carbon Dioxide Anion Gap BUN Creatinine Estim Creat Clear Calc Estimated GFR POC Glucose 162 H 153 H Random Glucose Calcium Procalcitonin Random Vancomycin 12.7 L C. difficile Tox B Gene 03/15/22 03/16/22 03/16/22 22:00 05:48 05:48 WBC RBC Hgb Hct MCV MCH MCHC RDW Plt Count MPV Absolute Nucleated RBC Nucleated RBC % (auto) Sodium 138 Potassium 3.6 Chloride 104 Carbon Dioxide 26 Anion Gap 12 BUN 5 L Creatinine 0.62 Estim Creat Clear Calc 109.7 Estimated GFR > 60 POC Glucose Random Glucose 86 Calcium 8.0 L Procalcitonin 7.04 Random Vancomycin C. difficile Tox B Gene NEGATIVE 03/16/22 03/16/22 05:48 07:35 WBC 7.4 RBC 2.65 L Hgb 7.8 L Hct 23.5 L MCV 88.7 MCH 29.4 MCHC 33.2 RDW 13.4 Plt Count 156 L MPV 9.0 L Absolute Nucleated RBC 0.000 Nucleated RBC % (auto) 0.0 Sodium Potassium Chloride Carbon Dioxide Anion Gap BUN Creatinine Estim Creat Clear Calc Estimated GFR POC Glucose 80 Random Glucose Calcium Procalcitonin Random Vancomycin C. difficile Tox B Gene Preliminary micro results at discharge 03/13/22 07:36 Blood Culture - Preliminary Blood - Venous No growth after 48 hours. 03/13/22 07:36 Blood Culture - Preliminary Blood - Venous No growth after 48 hours. Discharge Plan Discharge Patient Disposition: Retirement Discharge Diagnosis: Aspiration pneumonia Polysubstance use disorder Referrals: Vicky Hanna MD [Primary Care Provider] - 1 Week Discharge Medications: New doxycycline hyclate 100 mg tablet 100 mg PO BID 5 Days Qty: 10 0RF amoxicillin-pot clavulanate 875-125 mg tablet 1 tab PO BID 5 Days Qty: 10 0RF ferrous sulfate 324 mg (65 mg iron) Tablet,Delayed Release (Dr/Ec) 324 mg PO DAILY 30 Days Qty: 30 0RF (DME) blood-glucose meter [FreeStyle Lite Meter] Kit See Rx Instructions .Route Qty: 1 0RF Rx Instructions: As directed (DME) FreeStyle Lite Strips Strip See Rx Instructions .Route Qty: 100 0RF Rx Instructions: check blood sugar before meals and at bedtime (DME) Comfort Touch Ult Thin Lancets 31 gauge misc See Rx Instructions .Route Qty: 100 0RF Rx Instructions: before meals and at bedtime alcohol swabs [Alcohol Wipes] Pads, Medicated 1 pad topical QIDACHS Qty: 100 0RF Continued insulin lispro [Humalog KwikPen Insulin] 100 unit/mL insulin pen See Protocol subcut USEASDIRECTD Qty: 3 0RF Protocol: Insulin Correction Scale Less than or equal to 110 ---- Give (units): 0 111 to 150 Give (units): 0 151 to 200 Give (units): 2 201 to 250 Give (units): 4 251 to 300 Give (units): 6 301 to 350 Give (units): 8 Greater than 350 Give (units): 10 Call MD if Blood Glucose > : 350 lorazepam 0.5 mg tablet 1 tab PO TID PRN (Reason: Anxiety) hydroxyzine HCl 25 mg tablet 1 tab PO BEDTIME PRN (Reason: anxiety) aripiprazole 30 mg Tablet 30 mg PO DAILY acetaminophen 325 mg Tablet 650 mg PO Q6H PRN (Reason: Mild Pain (Scale Score 1-4)) sennosides [senna] 8.6 mg Tablet 17.2 mg PO BEDTIME nicotine (polacrilex) 2 mg Gum 2 mg PO Q2H PRN (Reason: Smoking Cessation) pantoprazole 20 mg Tablet,Delayed Release (Dr/Ec) 20 mg PO DAILY nicotine 21 mg/24 hr Patch 24 Hour 1 patch topical DAILY bisacodyl 5 mg Tablet 5 mg PO ONCE PRN (Reason: Constipation) polyethylene glycol 3350 [Miralax] 17 gram Powder In Packet 17 g PO DAILY nystatin-triamcinolone 100,000-0.1 unit/g-% Cream 1 appl TOPICAL DAILY zolpidem 5 mg Tablet 5 mg PO BEDTIME PRN (Reason: Sleep) Changed insulin glargine [Lantus U-100 Insulin] 100 unit/mL solution 15 unit SUBCUT DAILY Qty: 10 0RF Discontinued hydromorphone 4 mg Tablet 4 mg PO Q6H PRN (Reason: Pain) No Action (DME) pen needle, diabetic [Pen Needle] 31 gauge x 1/4 needle See Rx Instructions .Route Qty: 100 0RF Rx Instructions: As directed (DME) insulin syringe-needle U-100 [Insulin Syringe] 0.5 mL 29 gauge x 1/2 syringe See Rx Instructions .Route Qty: 100 0RF Rx Instructions: As directed Discharge Orders: Discharge Order (Routine); Ordered 03/17/22 Ordered By: Merlene Zuñiga Stand Alone Forms: Patient Portal Discharge page Other Ambulatory Orders: Complete Blood Count no Diff (Routine) Timeframe: 1 Week Facility: [facility] - Location: Laboratory Ordered By: Merlene Zuñiga Care Plan Goals: See below Health Concerns: Aspiration pneumonia-please complete course of antibiotics as prescribed Purulent cellulitis status post I&D at [facility]. Complete course of antibiotics as prescribed. Sutures have been removed, wounds healing well You have been started on methadone. Last dose given 03/17. Recommend to abstain from all drug use Dose of lantus has been decreased. please check blood sugar before meals and at bedtime. keep track of blood sugar levels Hepatitis C Ab positive, viral load pending - need outpatient follow up with PCP/GI evaluation Anemia. Likely related to chronic inflammation and low iron. you have been started on iron supplementation. need outpatient follow up with PCP. Repeat CBC in one week Call to schedule follow-up appointment with PCP Plan of Treatment: see above Assessment: See discharge summary Discharge Date/Time: 03/17/22 14:00
--- NOTE | 2022-03-16 12:58 | MHC.CM.PN ---
Addendum entered by Juliann Savage 03/16/22 13:35: notified by the [facility] ttt patient now in fact will not be discharged today , weaned from her oxygen , but whenever oxygen comes off she says she feels short of breath despite normal oxygen saturation Does not feel ready to leave the hospital today per [facility] plan to conituie to monitor her for discharge tomorrow Original Note: nurse case managem,net note electronic medical record reviewed along with case discussed with staff nurse , hospitalist and recovery team nurse . and met with patient she is aware that she w\is anticipated to be discharged today discharge plan1. list of shelters given for future references , list of community supports for housing, food, clothing, transportation, c pcp list of physicians and instructed to choose one and call for appointment if she plans on staying in this area. recovery nurse reported to this appeals writer that a referral was made to Jennifer [facility] IN [facility] FOR HER [facility] CLINIC , PATIENT PLANS TO DISCHARGE TO THE [facility] IN [place] AND ALSO GIVEN BY THE RECOVERY TEAM NURSE PATIENT ALL SET TO PRESENT TO THE OTP IN THEAND GIVEN LAST DOSE METHADONE PAPERWORK TO PRESEBNT TO CLINIC, AND ALSO GIVEN CONTACT INFORMATION FOR CSS REFERRALS
--- NOTE | 2022-03-16 13:17 | HO.PM.IMPN ---
Subjective Subjective Date of Service: 03/16/22 Interval History: Seen examined this morning Patient reports she is not feeling well, feels short of breath, has persistent cough, no fever, no chills Able to be weaned off of oxygen onto room air but whenever oxygen comes off she says she feels short of breath despite normal oxygen saturation Does not feel ready to leave the hospital today Review of Systems Review of Systems: Yes all other systems are reviewed and are negative Constitutional Constitutional: Denies chills and Denies fever(s) Cardiovascular Cardiovascular: Denies chest pain, Denies palpitations and Reports dyspnea Respiratory Respiratory: Reports cough and Reports dyspnea Gastrointestinal Gastrointestinal: Denies abdominal pain Endocrine Endocrine: Denies palpitations Physical Exam Vital Signs: Vital Signs: Last Vital Signs Temp 98.9 F 03/16/22 07:33 Pulse 67 03/16/22 07:33 Resp 17 03/16/22 07:33 BP 128/65 03/16/22 07:33 Pulse Ox 97 03/16/22 07:33 O2 Del Method 03/16/22 07:33 O2 Flow Rate 2 03/16/22 07:33 Oxygen Flow Rate 6 03/12/22 21:30 BMI result Body Mass Index 27.4 Const: General: cooperative, comfortable, no acute distress, alert and awake Nutritional Appearance: average body habitus Orientation/consciousness: patient oriented x3 Resp: Effort & Inspection: normal respiratory effort and able to speak in complete sentences Auscultation: clear to auscultation bilaterally Cardio: Rate: regular rate Heart sounds: S1 normal heart sound present and S2 normal heart sound present GI: Palpation (GI): Soft to palpation and nontender Neuro: General: patient oriented x3 Extrem: General: Yes no pedal edema Objective Data Active Medications Acetaminophen (Acetaminophen 325 Mg Tablet) 650 mg PO Q6H PRN PRN Reason: Pain, Mild (Pain Scale 1-3) Last Admin: 03/16/22 06:00 Dose: 650 mg Documented By: ISSAC Aripiprazole (Aripiprazole 30 Mg Tablet) 30 mg PO DAILY [facility] Last Admin: 03/16/22 08:35 Dose: 30 mg Documented By: OSCAR Dextrose (Dextrose 50 % 25 Gm/50 Ml Syringe) 25 gm IVPUSH Q15M PRN; Protocol PRN Reason: per Hypoglycemia Standing Ord. Enoxaparin Sodium (Enoxaparin Sodium 40 Mg/0.4 Ml Syringe) 40 mg SUBCUT Q24H [facility] Last Admin: 03/16/22 12:26 Dose: Not Given Documented By: OSCAR Non-Admin Reason: Patient Refused Ferrous Sulfate (Ferrous Sulfate 324 Mg Tablet.Dr) 324 mg PO DAILY [facility] Last Admin: 03/16/22 08:35 Dose: 324 mg Documented By: OSCAR Glucose (Glucose Gel 15 Gm Gel..Gram.) 15 gm PO Q15M PRN; Protocol PRN Reason: per Hypoglycemia Standing Ord. Hydroxyzine HCl (Hydroxyzine Hcl 25 Mg Tablet) 25 mg PO Q8H PRN PRN Reason: anxiety/restlessness Last Admin: 03/16/22 05:49 Dose: 25 mg Documented By: ISSAC Ampicillin Sodium/Sulbactam (Sodium 3 gm/ Sodium Chloride) 100 mls @ 200 mls/hr IV Q6H [facility] Last Infusion: 03/16/22 12:27 Dose: 0 mls/hr Documented By: OSCAR Vancomycin HCl 1,500 mg/ (Sodium Chloride) 500 mls @ 333.333 mls/hr IV Q12H [facility] Last Infusion: 03/16/22 10:42 Dose: 0 mls/hr Documented By: OSCAR Insulin Glargine (Insulin Glargine,Hum.Rec.Anlog 100 Unit/Ml 10 Ml Vial) 15 unit SUBCUT DAILY [facility] Last Admin: 03/16/22 10:03 Dose: Not Given Documented By: OSCAR Non-Admin Reason: No Insulin Coverage Insulin Human Lispro (Insulin Lispro 100 Unit/Ml 3 Ml Vial) 0 unit SUBCUT QIDACHS [facility]; Protocol Last Admin: 03/16/22 12:26 Dose: Not Given Documented By: OSCAR Non-Admin Reason: Patient Refused Loperamide HCl (Loperamide Hcl 2 Mg Capsule) 4 mg PO Q4H PRN PRN Reason: Diarrhea Last Admin: 03/16/22 05:57 Dose: 4 mg Documented By: ISSAC Methadone HCl (Methadone Hcl 20 Mg/2 Ml Oral.Conc) 35 mg PO DAILY [facility] Last Admin: 03/16/22 08:35 Dose: 35 mg Documented By: OSCAR Nicotine (Nicotine 21 Mg Patch.Td24) 21 mg TRANSDERMA DAILY [facility] Last Admin: 03/16/22 08:35 Dose: 21 mg Documented By: OSCAR Nicotine Polacrilex (Nicotine Polacrilex 2 Mg Gum) 2 mg BUCCAL Q2H PRN PRN Reason: Smoking Cessation Last Admin: 03/16/22 08:53 Dose: 2 mg Documented By: OSCAR Omeprazole (Omeprazole 20 Mg Capsule.Dr) 20 mg PO DAILY@0630 [facility] Last Admin: 03/16/22 05:48 Dose: 20 mg Documented By: ISSAC Ondansetron HCl (Ondansetron Hcl 4 Mg/2 Ml Vial) 4 mg IVPUSH Q8H PRN PRN Reason: Nausea and Vomiting Oxycodone HCl (Oxycodone Hcl Immed Release 5 Mg Tablet) 5 mg PO Q4H PRN PRN Reason: moderate pain Last Admin: 03/16/22 08:33 Dose: 5 mg Documented By: OSCAR Pharmacy Consult (Consult Rx Vancomycin Dosing) 1 each MISCELLANE DAILY PRN PRN Reason: Consult order Pharmacy Consult (Consult Rx Perform Med Rec) 1 each MISCELLANE ONCE PRN PRN Reason: Consult order Pharmacy Consult (Consult Rx Vancomycin Dosing) 1 each MISCELLANE DAILY [facility] Senna (Sennosides 8.6 Mg Tablet) 17.2 mg PO BEDTIME [facility] Last Admin: 03/15/22 21:02 Dose: Not Given Documented By: ISSAC Non-Admin Reason: Patient Refused Sodium Chloride (0.9 % Sodium Chloride Flush 3 Ml Syringe) 3 ml IVFLUSH QSHIFT [facility] Last Admin: 03/16/22 08:45 Dose: 3 ml Documented By: OSCAR Labs CBC & Chem 7: 03/16/22 05:48 03/16/22 05:48 Labs: Laboratory Results - last 24 hr 03/15/22 03/15/22 03/15/22 15:59 17:38 20:10 MCV MCH MCHC RDW Plt Count MPV Absolute Nucleated RBC Nucleated RBC % (auto) Anion Gap Estim Creat Clear Calc Estimated GFR POC Glucose 162 H 153 H Random Glucose Calcium Procalcitonin Random Vancomycin 12.7 L C. difficile Tox B Gene 03/15/22 03/16/22 03/16/22 22:00 05:48 05:48 MCV MCH MCHC RDW Plt Count MPV Absolute Nucleated RBC Nucleated RBC % (auto) Anion Gap 12 Estim Creat Clear Calc 109.7 Estimated GFR > 60 POC Glucose Random Glucose 86 Calcium 8.0 L Procalcitonin 7.04 Random Vancomycin C. difficile Tox B Gene NEGATIVE 03/16/22 03/16/22 05:48 07:35 MCV 88.7 MCH 29.4 MCHC 33.2 RDW 13.4 Plt Count 156 L MPV 9.0 L Absolute Nucleated RBC 0.000 Nucleated RBC % (auto) 0.0 Anion Gap Estim Creat Clear Calc Estimated GFR POC Glucose 80 Random Glucose Calcium Procalcitonin Random Vancomycin C. difficile Tox B Gene Microbiology Microbiology Results: Microbiology 03/13/22 07:36 Blood Culture - Preliminary Blood - Venous No growth after 48 hours. 03/13/22 07:36 Blood Culture - Preliminary Blood - Venous No growth after 48 hours. Assessment and Plan (1) Aspiration pneumonia: Status: Acute [facility] hospital d#2 61yo F with opioid use disorder, insulin-dependent DM2, and bipolar depression came to the ED 2x on 03/12/22 for opioid overdose and on the 2nd visit, developed severe sepsis and was found to have aspiration PNA # severe sepsis # aspiration pneumonia - continue ABX vancomycin + ampicillin/sulbactam -repeat chest x-ray read as worsening right-sided pneumonia however comparing images seem similar to previous. Procalcitonin trending down. Able to be weaned off of oxygen -blood cultures negative to date # b/l upper extremity cellulitis s/p bilateral upper extremity I&D at [facility] - continue vancomycin d#3, request records from [facility] re: I+D - wound culture MRSA/mixed organisms - sutures removed March 15 - blood cultures negative # HCV Ab positive - viral load pending # iron def anemia H/H from 03/04 at [facility] 8.5/25.1 - start PO repletion, check FOBT # opioid use disorder - Addiction Medicine consulted, started on methadone # DM2 - basal/bolus insulin, A1c 8.8 Lantus dose decreased to 15 units on admission # mood disorder - continue aripiprazole # tobacco dependence Smoking cessation advised - NRT VTE ppx - LMWH Attending-Dr. Parker In my clinical judgment, the patient requires continued hospitalization for the following reasons: IV ABX Quality Stroke Does the patient have a stroke diagnosis?: No VTE Prior VTE?: No VTE Risk Level:: Medical - moderate - high VTE Device Contraindication: N/A - Device Ordered VTE Drug Contraindication: N/A - Med Ordered
[2022-03-16 16:00] VITALS: BP 135/67; PULSE 77; RESP 18; TEMP 36.5; O2SAT 97
[2022-03-16 16:10] LABS: Glucose, Whole Blood 135 mg/dL (60-115)
[2022-03-16 18:46] LABS: Vancomycin Trough 15.4 mcg/mL (10.0-20.0)
[2022-03-16 20:00] VITALS: BP 153/72; PULSE 81; RESP 18; TEMP 36.9; O2SAT 92
[2022-03-16 20:09] LABS: Glucose, Whole Blood 140 mg/dL (60-115)
[2022-03-16] MEDS: vancomycin HCL 1,250 MG in 0.9 % Sodium Chloride 250 ML 166.67 MG IV (20:43)
[2022-03-16 23:22] VITALS: BP 130/60; PULSE 65; RESP 17; TEMP 37.1; O2SAT 95
[2022-03-17 04:00] VITALS: BP 146/73; PULSE 86; RESP 17; TEMP 36.6; O2SAT 97
[2022-03-17] MEDS: Ampicillin Sodium/Sulbactam Na 3 GM in 0.9 % Sodium Chloride 100 ML IV (05:44)
[2022-03-17] MEDS: oxyCODONE HCl Immed Release 5 MG TABLET PO (05:51)
[2022-03-17] MEDS: hydrOXYzine HCL 25 MG TABLET PO (05:51)
[2022-03-17] MEDS: Acetaminophen 325 MG TABLET 650 MG PO ×2 (05:53→12:17)
[2022-03-17] MEDS: Nicotine Polacrilex 2 MG GUM BUCCAL (05:54)
[2022-03-17] MEDS: Omeprazole 20 MG CAPSULE.DR PO (05:55)
[2022-03-17 07:10] LABS: Creatinine Clr Calc Pharmacy 102.9; Estimated Glomerular Filt Rate > 60
[2022-03-17 07:33] LABS: Glucose, Whole Blood 149 mg/dL (60-115)
[2022-03-17] MEDS: Ferrous Sulfate 324 MG TABLET.DR PO (07:33)
[2022-03-17] MEDS: ARIPiprazole 30 MG TABLET PO (07:34)
[2022-03-17] MEDS: Nicotine 21 MG PATCH.TD24 TRANSDERMA (07:35)
[2022-03-17] MEDS: Insulin Glargine,Hum.rec.anlog 100 UNIT/ML 10 ML VIAL 15 UNIT SUBCUT (07:35)
[2022-03-17] MEDS: methADONE HCl 20 MG/2 ML ORAL.CONC 35 MG PO (07:35)
[2022-03-17] MEDS: 0.9 % Sodium Chloride Flush 3 ML SYRINGE IVFLUSH (07:36)
[2022-03-17] MEDS: vancomycin HCL 1,250 MG in 0.9 % Sodium Chloride 250 ML 166.66 MG IV (07:37)
[2022-03-17 07:45] VITALS: BP 146/72; PULSE 68; RESP 18; TEMP 36.3; O2SAT 96
--- NOTE | 2022-03-17 09:30 | HE.PHANOTE ---
re alana continue current dose, next trough 1800 on 03/17. Thanks Ron
--- NOTE | 2022-03-17 10:36 | MHC.CM.PN ---
Addendum entered by Marika Chau 03/17/22 15:11: PT WAS PROVIDED WITH [employer] AND INSTRUCTIONS TO CALL WHEN SHE WAS READY FOR TRANSPORT. PT ALSO PROVIDED WITH BUS PASSES Addendum entered by Marika Chau 03/17/22 12:11: CM DID ATTEMPT TO CONTACT [facility] TO INFORM THEM PT WOULD BE DISCHARGING TODAY THE INITIAL PLAN WAS DC YESTERDAY. THERE WAS NO ANSWER AT THE NETWORK TECHNICIAN [employer] PT INFORMED OF INABILITY TO CONFIRM A BED WAS STILL AVAILABLE. BUS PASSES WERE PROVIDED AND SHE WAS GIVEN INFORMATION ON THE LIVING ROOM IN THE EVEN [facility] NO LONGER HAS A BED. PT IS AWARE SHE WILL NEED TO PRESENT TO THE [facility]IC ([facility] TOMORROW MORNING WITH HER LAST DOSE LETTER Addendum entered by Marika Chau 03/17/22 11:54: CM INFORMED BY PTS RN THAT PT HAS INDICATED SHE WANTS TO LEAVE. CM MET WITH PT TO INFORM HER SHE SHOULD WAIT FOR [facility] [employer] TO BRING HER LAST DOSE LETTER FOR THE [facility]ETH[facility]ONE CLINIC. PT REPORTS SHE WANTS TO GO TO THE [facility] DISCUSSED WITH RECOVERY NURSE CM WILL ARRANGE LYFT OR TAXI Original Note: ELAINE MET WITH PT TO DISCUSS DC PLANNING PT REPORTS SHE WAS PLANNING TO STAY AT LEAST ANOTHER DAY AND THEN GO TO A INTERMEDIATE CM EXPLAINED SHE WAS MEDICALLY CLEARED TO DC AND WOULD NEED TO APPEAL IF SHE DID NOT PLAN TO DC. ELAINE ASSISTED PT IN LEAVING A MESSAGE FOR [facility] INFORMING THEM OF INTENT TO APPEAL PT REPORTS HER PLAN WILL BE TO GO TO A INTERMEDIATE BUT SAYS SHE WAS INTERESTED IN SA TREATMENT IF THERE WERE A BED OPEN SOMEWHERE CM DID MESSAGE RECOVERY TEAM HOWEVER PT WAS INFORMED THIS WOULD BE DIFFICULT ON THE WEEKEND AND SHE WOULD LIKELY NEED TO FOLLOW UP ON SA TREATMENT REFERRALS FROM THE INTERMEDIATE
--- NOTE | 2022-03-17 10:36 | PC.NURSE ---
Patient has refused her medications, vancomycyn IV antibiotics and ampicillin IV antibiotics.
[2022-03-17 11:02] VITALS: PULSE 76; PULSE 96; O2SAT 55; O2SAT 91
[2022-03-17 11:32] LABS: Glucose, Whole Blood 177 mg/dL (60-115)
[2022-03-17 11:41] VITALS: BP 139/63; PULSE 57; RESP 16; TEMP 37; O2SAT 95
[2022-03-17] MEDS: Insulin Lispro 100 UNIT/ML 3 ML VIAL SUBCUT (12:13)
[2022-03-17] MEDS: Enoxaparin Sodium 40 MG/0.4 ML SYRINGE SUBCUT (12:13)
--- NOTE | 2022-03-17 12:40 | MHC.RECOVSUP ---
Recovery Support note: CM informed this advertising copy writer that patient will be discharging today. Patient provided with last dose letter and information on the methadone clinic she was referred to. Patient has CSS information as well as contact information for the Recovery Support Team in the event that she has any questions after discharge. Instructed patient to go to the methadone clinic early in the morning as she will be a new patient. Patient reports no questions at this time.
[2022-03-20 14:32] LABS: HCV Log PCR <1.18 NOT DETECTED Log IU/mL (NOT DETECTED); HepC Viral Load <15 NOT DETECTED IU/mL (NOT DETECTED)
== END 2022-03-17 14:00 | disposition home or self-care (01) | DRG 917 ==
LOC: HO.ED 03-13 08:11 → HO.EDOVER 03-13 11:57 → HO.S3 03-13 18:51
PROVIDERS: Emergency Medicine; Family Medicine; Internal Medicine; Nurse Practitioner Psychiatric/Mental Health; Admitting Provider Family Medicine; Emergency Provider Emergency Medicine; PCP Family Medicine; Responsible Provider Physician Assistant Medical; Visit Provider Student in an Organized Health Care Education/Training Program
DX: T40.1X1A Poisoning by heroin, accidental (unintentional), initial encounter (principal); A41.9 Sepsis, unspecified organism; J69.0 Pneumonitis due to inhalation of food and vomit; E87.2 Acidosis; L03.114 Cellulitis of left upper limb; L03.113 Cellulitis of right upper limb; F11.20 Opioid dependence, uncomplicated; B19.20 Unspecified viral hepatitis C without hepatic coma; Z86.14 Personal history of Methicillin resistant Staphylococcus aureus infection; D50.9 Iron deficiency anemia, unspecified; Z20.822 Contact with and (suspected) exposure to COVID-19; F17.210 Nicotine dependence, cigarettes, uncomplicated; Z71.6 Tobacco abuse counseling; Z79.4 Long term (current) use of insulin; Z79.899 Other long term (current) drug therapy
CPT/HCPCS: 36415; 71045; 71250; 80048; 80053; 80076; 80202; 80307; 81003; 82565; 82607; 82728; 82746; 82947; 83036; 83540; 83605; 83615; 83735; 84145; 84484; 85025; 85027; 85045; 86704; 86706; 86709; 86803; 87040; 87340; 87389; 87493; 87522; 87635; 93005; 96361; 96365; 96366; 96375; 99285; J0295; J0696; J1650; J1885; J3370